=== PATIENT | female | born 1975 | race Caucasian/White ===

== ENCOUNTER → 2017-06-10 12:18 | Outpatient (CLI) | payer OTHER, SELFPAY ==
--- NOTE | 2017-06-10 12:32 | RAD_ITS ---
STUDY: X-RAY CHEST REASON FOR EXAM: Female, 41 years old. Cough. TECHNIQUE: PA and lateral views of the chest. COMPARISON: None. FINDINGS: Hyperinflation. Focal infiltrate is seen in the superior segment of the right lower lobe. There is no demonstrated pleural abnormality. Normal size heart. Normal mediastinum and allan. Normal visualized pulmonary arteries. Normal visualized aortic arch and descending thoracic aorta. Normal visualized thoracic spine. Normal visualized ribs, clavicles, and shoulders. There is no demonstrated abnormality of the visualized soft tissue structures of the upper abdomen. RAD/Chest PA and Lateral IMPRESSION: Focal infiltrate in the superior segment of the right lower lobe. Electronically Signed: Jimi Anderson MD at 12:55 EST Tel [phone], Service support ,
== END ==
PROVIDERS: Family Provider Internal Medicine; PCP Internal Medicine; Visit Provider Nurse Practitioner Family
DX: R05 Cough (principal)
CPT/HCPCS: 71046

== ENCOUNTER 2017-06-11 19:59 | Emergency (ER) | payer OTHER, SELFPAY ==
[2017-06-11 20:00] VITALS: BP 116/87; PULSE 84; RESP 15; TEMP 36.7; O2SAT 100; BMI 23.0
--- NOTE | 2017-06-11 20:16 | RAD_ITS ---
STUDY: X-RAY CHEST REASON FOR EXAM: Female, 41 years old. Cough, chest pain. TECHNIQUE: PA and lateral views of the chest. COMPARISON: June 10, 2017 FINDINGS: Within the right hilar region there is a persistent somewhat ill-defined rounded opacity. Normal size heart. Normal visualized aortic arch and descending thoracic aorta. Normal visualized thoracic spine. Normal visualized ribs, clavicles, and shoulders. There is no demonstrated abnormality of the visualized soft tissue structures of the upper abdomen. RAD/Chest PA and Lateral IMPRESSION: Rounded opacity within the right hilar region that may be secondary to some combination of atelectasis and/or pneumonia however an underlying mass cannot be entirely excluded, recommend a CT with contrast for further characterization. Electronically Signed: Christine Brown MD at 21:25 EST Tel , Service support ,
[2017-06-11 20:53] LABS: Hematocrit 42.4 % (37-47); Hemoglobin 14.4 g/dl (12.0-15.0); Mean Corpuscular Volume 89.5 fL (81-99); Red Blood Count 4.74 M/mm3 (4.2-5.4); White Blood Count 3.8 K/mm3 (4.4-11.0)
[2017-06-11 20:54] LABS: Absolute Lymphocyte Count 0.87 X10^3/ul (0.83-4.51); Absolute Neutrophil Count 2.5 X10^3/uL (2.0-7.7); Basophil% 0.3 % (0-1); Eosinophils% 1.3 % (0-5); Lymphocyte # 0.87 X10^3/ul (4.0); Lymphocyte % 22.8 % (19-41); Mean Corpuscular Hgb 30.4 pg (27.0-32.0); Mean Platelet Vol. 9.1 fl (6.2-12.0); Monocyte% 9.4 % (0-10); Neutrophil # 2.53 X10^3/uL (2.7-7.7); Neutrophil % 66.2 % (47-70); POSITIVE COUNT NO; POSITIVE DIFFERENTIAL NO; POSITIVE MORPHOLOGY NO; Platelet Count 168 K/mm3 (150-450); RBC Distribution Width CV 12.1 % (11.6-14.6); RBC Distribution Width SD 39.3 fl (35.1-43.9)
[2017-06-11 20:55] LABS: Basophil# 0.01 X10^3/uL; Eosinophil# 0.05 X10^3/uL; Monocyte# 0.36 X10^3/uL
[2017-06-11 21:03] LABS: Anion Gap 11 (5-15); BUN 9 mg/dL (7-18); Calcium,Total 9.2 mg/dL (8.5-10.1); Chloride 107 mmol/L (98-107); Creatinine, Serum 1.12 mg/dL (0.55-1.02); EST Glomerular Filtration Rate 57 mL/min (>60); Est Glom Filt Rate - Afr Amer 69 mL/min (>60); Estimated Creatinine Clearance 53.34 ml/min; Glucose 93 mg/dL (74-106); Potassium 3.4 mmol/L (3.5-5.1); Sodium Level 138 mmol/L (136-145)
[2017-06-11] MEDS: 0.9% Normal Saline 1,000 ML 1000 ML IV (21:17)
[2017-06-11 21:24] LABS: Lactic Acid 1.4 mmol/L (0.4-2.0)
--- NOTE | 2017-06-11 21:53 | ED.DCSUM_ITS ---
- ER Visit Summary Date of Service: 06/11/17 Chief Complaint: Cough, chest pain, aches and difficulty urinating History of Present Illness: The patient is a 41 F who was seen by her PCP yesterday and had a chest x-ray which revealed pneumonia. She was prescribed doxycycline. She states she took ibuprofen 3 days ago. She states she does not feel well. She complains of headache aches cough. Cough is nonproductive. She also complains of dyspnea with exertion. She denies orthopnea PND. The chest pain is on the left side. She denies history of PE or DVT. She has no risk factors for either. She is PERC negative. Physical Examination: Vital signs are unremarkable. She is afebrile and she is not hypoxic. She does appear ill. Pupils equal round reactive. Extra muscle intact. Nares patent. Posterior pharynx erythema or exudate. Mucosa slightly dry. Trach is midline. Lungs revealed abnormal breath sounds on the left with increased vocal fremitus without egophony. Heart is regular without murmur, gallop or rub. Abdomen is soft nontender without paraspinal megaly. There are no dermatologic lesions noted. Insert lower extremity DVT. Neuro exam is nonfocal. Test Results: Two-view chest x-ray reveals an infiltrate on the right either the superior segment of the right lower lobe or inferior segment of the right middle lobe. White count is 3.8 with normal differential. Electrode panel was marked for CO2 of 20 with an anion gap of 11. Creatinine is 1.12 with a GFR 58. Lactate is 1.4. Emergency Department Course and Treatment: Patient appears ill reports she feels worse chest x-ray was repeated and she had blood work obtained. Because of the elevated creatinine she did receive 1 L of normal saline. Treatment Plan: Patient and were informed of test results and informed that she is safe to go home and to continue the medication she was prescribed yesterday. She was informed that she should not take anti-inflammatory agents i.e. ibuprofen or naproxen. Disposition: Discharged to home with spouse Impression: 1. Community-acquired pneumonia, right side 2. Mild renal insufficiency 3. History of interstitial cystitis 4. History of migraine headaches This note was generated with [employer]ak[employer] software. It may contain incorrect words, spelling, and punctuation that were not noted in review of the chart prior to signing ED Disposition - Plan for ED Patient: Disposition: Home or Assisted Living Chief Complaint: General Illness Instructions: ED Pneumonia Adult Referrals: Zoey Hurd MD [Primary Care Provider] - 1 Week if not improving Additional Instructions: Take medication you were prescribed by your primary care provider until gone. Drink plenty of fluids. Do not take any ibuprofen or naproxen.
[2017-06-11 22:06] VITALS: BP 102/87; PULSE 65; RESP 22; O2SAT 100
== END 2017-06-11 22:13 | disposition home or self-care (01) ==
PROVIDERS: Emergency Provider Emergency Medicine; Family Provider Internal Medicine; PCP Internal Medicine
DX: J18.9 Pneumonia, unspecified organism (principal); N28.9 Disorder of kidney and ureter, unspecified; G43.909 Migraine, unspecified, not intractable, without status migrainosus; Z87.448 Personal history of other diseases of urinary system; Z79.51 Long term (current) use of inhaled steroids; Z79.899 Other long term (current) drug therapy
CPT/HCPCS: 71046; 80048; 83605; 85025; 99283; J7030; A4216

== ENCOUNTER → 2017-06-20 13:43 | Outpatient (CLI) | payer OTHER, SELFPAY ==
--- NOTE | 2017-06-20 13:46 | RAD_ITS ---
STUDY: X-RAY CHEST REASON FOR EXAM: Female, 42 years old. Chest pain. TECHNIQUE: PA and lateral views of the chest. COMPARISON: Comparison is made with prior study dated June 11, 2017. FINDINGS: Hyperinflation. The previously seen right upper lobe infiltrate as clear. There is no demonstrated pleural abnormality. Normal size heart. Normal mediastinum and allan. Normal visualized pulmonary arteries. Normal visualized aortic arch and descending thoracic aorta. Normal visualized thoracic spine. Normal visualized ribs, clavicles, and shoulders. There is no demonstrated abnormality of the visualized soft tissue structures of the upper abdomen. RAD/Chest PA and Lateral IMPRESSION: Normal x-ray examination of the chest. Electronically Signed: Jimi Anderson MD at 14:44 EST Tel [phone], Service support ,
== END ==
PROVIDERS: Family Provider Internal Medicine; PCP Internal Medicine; Visit Provider Internal Medicine
DX: R07.9 Chest pain, unspecified (principal); J18.9 Pneumonia, unspecified organism
CPT/HCPCS: 71046

== ENCOUNTER 2017-08-08 19:34 | Emergency (ER) | payer OTHER, SELFPAY ==
[2017-08-08 19:37] VITALS: BP 123/89; PULSE 91; RESP 24; TEMP 37.6; O2SAT 100; BMI 22.8
[2017-08-08] MEDS: 0.9% Normal Saline 1,000 ML 1000 ML IV (20:29)
[2017-08-08] MEDS: Ondansetron 4 MG/2 ML Vial IV (20:29)
[2017-08-08] MEDS: Morphine 4 MG/ML Syringe IV (20:30)
[2017-08-08 20:38] VITALS: TEMP 36.8
[2017-08-08 20:42] LABS: Absolute Lymphocyte Count 0.45 X10^3/ul (0.83-4.51); Absolute Neutrophil Count 4.9 X10^3/uL (2.0-7.7); Differential Indicated SCAN CRITERIA MET; Eosinophil# 0.02 X10^3/uL; Eosinophils% 0.4 % (0-5); Hematocrit 40.9 % (37-47); Hemoglobin 13.9 g/dl (12.0-15.0); Lymphocyte # 0.45 X10^3/ul (4.0); Lymphocyte % 8.1 % (19-41); Mean Corpuscular Hgb 30.5 pg (27.0-32.0); Mean Corpuscular Volume 89.7 fL (81-99); Mean Platelet Vol. 9.1 fl (6.2-12.0); Monocyte# 0.17 X10^3/uL; Monocyte% 3.1 % (0-10); Neutrophil # 4.89 X10^3/uL (2.7-7.7); Neutrophil % 88.4 % (47-70); POSITIVE COUNT NO; POSITIVE DIFFERENTIAL YES; POSITIVE MORPHOLOGY NO; Platelet Count 183 K/mm3 (150-450); RBC Distribution Width CV 12.8 % (11.6-14.6); RBC Distribution Width SD 41.7 fl (35.1-43.9); Red Blood Count 4.56 M/mm3 (4.2-5.4); White Blood Count 5.5 K/mm3 (4.4-11.0)
[2017-08-08 20:52] LABS: Anion Gap 9 (5-15); BUN 18 mg/dL (7-18); BUN/Creat Ratio 17.3 RATIO (10-20); Calcium,Total 8.4 mg/dL (8.5-10.1); Chloride 111 mmol/L (98-107); Creatinine, Serum 1.04 mg/dL (0.55-1.02); EST Glomerular Filtration Rate 62 mL/min (>60); Est Glom Filt Rate - Afr Amer 75 mL/min (>60); Estimated Creatinine Clearance 56.87 ml/min; Glucose 95 mg/dL (74-106); Potassium 3.6 mmol/L (3.5-5.1); Sodium Level 140 mmol/L (136-145)
[2017-08-08 21:15] LABS: Anisocytosis RARE; Platelet Estimate ADEQUATE (ADEQ)
[2017-08-08] MEDS: Dicyclomine 10 MG Capsule 20 MG PO (21:49)
--- NOTE | 2017-08-08 21:49 | ED.DCSUM_ITS ---
- ER Visit Summary Date of Service: 08/08/17 Chief Complaint: Nausea, vomiting, diarrhea History of Present Illness: The patient is a 42 F who ate [employer] yesterday morning and felt fine. She and her grilled chicken and vegetables on the ground last evening. They both woke up with nausea, vomiting, diarrhea today. She has not noted fever. She complains of generalized abdominal pain. Patient has had prior hysterectomy and appendectomy. Physical Examination: Vital signs are unremarkable. Her temperature is 99.6. Patient's lying on her right side with her knees pulled to her chest. She appears very comfortable. Head neck examination does reveal moist mucous membranes and she is making tears. Heart is regular rate and rhythm. Lung sounds are clear. Abdomen is soft with mild diffuse tenderness. There is no guarding or rebound. Hypoactive but present bowel sounds are noted throughout. Test Results: CBC was normal white count with 88% neutrophils. Chemistry studies reveal a 1.04. This is about her baseline. Her bicarb is slightly low at 20. Emergency Department Course and Treatment: Patient was given IV fluids, morphine , and Zofran. On repeat evaluation she states her pain is starting to improve. Should be given a dose of p.o. Bentyl. Nursing states that she is requesting just to go home. Should be on a prescription for Bentyl and Zofran at home. At this time she is tolerating ice chips. Treatment Plan: [] Disposition: Discharge Impression: Gastroenteritis This note was generated with [employer] dictation software. It may contain incorrect words, spelling, and punctuation that were not noted in review of the chart prior to signing ED Disposition - Plan for ED Patient: Chief Complaint: Nausea/Vomiting/Diarrhea Referrals: Zoey Hurd MD [Primary Care Provider] -
--- NOTE | 2017-08-08 21:49 | ED.DEP ---
ED Disposition - Plan for ED Patient: Disposition: Home or Assisted Living Chief Complaint: Nausea/Vomiting/Diarrhea Instructions: ED Gastroenteritis Vs Food Poison Prescriptions: Ondansetron [Zofran Odt] 4 mg PO Q8H PRN PRN #10 tablet PRN Reason: Nausea Dicyclomine HCl [Bentyl] 20 mg PO TIDAC #20 capsule Referrals: Zoey Hurd MD [Primary Care Provider] - 3-5 Days if not improving
[2017-08-08] MEDS: Ondansetron ODT 4 MG Tablet PO (21:59)
[2017-08-08 22:01] VITALS: BP 105/61; PULSE 73; RESP 16; O2SAT 100
== END 2017-08-08 22:02 | disposition home or self-care (01) ==
PROVIDERS: Emergency Provider Emergency Medicine; Family Provider Internal Medicine; PCP Internal Medicine
DX: K52.9 Noninfective gastroenteritis and colitis, unspecified (principal); G43.909 Migraine, unspecified, not intractable, without status migrainosus; M41.9 Scoliosis, unspecified; Z79.899 Other long term (current) drug therapy
CPT/HCPCS: 80048; 85025; 96361; 96374; 96375; 99284; J7030; J2405

== ENCOUNTER → 2018-07-25 | Outpatient (CLI) | payer OTHER, SELFPAY ==
[2018-07-25 13:45] VITALS: BMI 22.1
--- NOTE | 2018-07-25 15:09 | RAD_ITS ---
STUDY: X-RAY - THORACIC SPINE REASON FOR EXAM: Female, 43 years old. Back pain TECHNIQUE: 3 view(s) of the thoracic spine were obtained. COMPARISON: None. FINDINGS: Normal kyphosis of the thoracic spine. Mild dextroconvex scoliosis. Mild spondylosis. The soft tissue structures are unremarkable. RAD/Thoracic Spine 3 Views IMPRESSION: Mild spondylosis and scoliosis. Electronically Signed: Maurice Thompson MD at 10:14 EDT Tel , Service support ,
== END | disposition home or self-care (01) ==
LOC: MTRAD 15:08
PROVIDERS: Family Provider Internal Medicine; PCP Internal Medicine; Referring Provider Nurse Practitioner Family; Visit Provider Nurse Practitioner Family
DX: M54.6 Pain in thoracic spine (principal)
CPT/HCPCS: 72072

== ENCOUNTER 2018-08-18 15:00 | Outpatient (RCR) | payer OTHER, SELFPAY ==
[2018-07-25 13:45] VITALS: BMI 22.1
[2018-08-16 14:16] VITALS: BMI 22.1
--- NOTE | 2018-08-18 16:02 | HP.PTEVAL_ITS ---
Patient's Visit Information MARIYA BAKER is a 43 year old F referred to Physical Therapy by SADIA De Oliveira with a diagnosis of Thoracic pain, scoliosis. Date of Evaluation: 08/18/18 Physical Therapist: Wilbert Hinds DPT, OCS, CSCS - Visit Plan Frequency: 2x /Week Duration: 2-4 Weeks Plan: 2x/week for 3-4 weeks for. psoture correction, thoracic ext adn L rotation ROM, DLS and core/LE strength. Will f/u next week to check ext ROM, L rotation ROM, subjective adn posture adnd then schedule 2x/week for 2 weeks for strength or ROM/STM/modalities - Subjective Findings: R sided mid low back pain. present for a year with insidious onset since pneumonia a year ago. Constant pain 4/10 moderately and up to 8/10 lying down on side. No treatments exce-t tylenol. Does some stretching adn walking and running at home. stretching helps somewhat. Walking helps a ltitle bit. Started with doctor a while ago and had x rays which showed healthy lungs and scoliosis. 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 Has to get up and walk alot. Basic ADLs are OK. Hobbies include running but this makes her worse. no problem with coughing or sneezing. - Objective Good balance adn I gait , steps adn trasnfers today. Generaly tired putting face in hands and rubbing eyes during session. Posture is forward head and kyphostic thoracic spine. Sacral sits and passive sitting posture. Slight L rib hump with concavity of T/S scolisos. Palpation is tender in mid ribs in L T/S maximally and R LB distal ribs laterally minimally. PA pressure through T/S shows tighness of mevement and tenderness over spine. reflexes 2/3 patella and achilles. Sensation LE WNL to gross light touch. Strength in LE not myotomally limited but weak in hips 3+/5, knees 4-, andkles 4. Trunk flexiona dn extension very weak at 3+. Spinal multisegmental ROM: ext max limited to about 15 degree extension with L upper rib pain T/S, B SB mod limited. Flexion full.L rotation tight adn painful with OP vs R rotation. Repeated PPU show NE, L rotation with OP slightly better ROM and PDM. EIS slightly improved extension. - slump and - SLR testing. - Goals Goal 1:: Near full ext adn L rotation thoracic ROM without pain. Goal Time Frame: 4-6 Weeks Goal 2:: Patient sleep without interruption due to pain Goal Time Frame: 2-4 Weeks Goal 3:: Sit with approp posture without VC Goal Time Frame: 2-4 Weeks Goal 4:: Begin workout again without increased pain. Goal Time Frame: 4-6 Weeks - Rehabilitation Potential Physical Therapy Diagnosis: Thoracic pain and ROM limitations. Yellow flags with pain at night but plenty of physical anomalies to wrok on while awaiting US of gall bladder. Rehabilitation Potential: Questionable - Anticipated Interventions Patient/Client Instruction: Educate patient on: Condition, Plan of Care For the Purpose of:: To decrease pain, To increase tolerance to activity/condition/position, To foster healthy habits Therapeutic Exercise to Include: Strength training, Postural training, Flexibilty training, Passive ROM, Active ROM, Dynamic Lumbar Stabilization For the Purpose of:: To decrease pain, To increase ROM, To improve muscle pe rformance and motor function, To increase tolerance to activity/condition/position, To improve ability of physical actions for home/community/work/leisure Manual Therapy Techniques to Include: Mobilization, Passive ROM, Soft tissue mobilization For the Purpose of:: To increase ROM, To increase tolerance to activity/condition/position TENS: Yes Thermo therapy (hot pack): Yes For the Purpose of:: To decrease pain Thank you for the opportunity to evaluate your patient. For Medicare and Medicare HMO plans, please review the plan of care and approve it. It will need to be FAXED BACK to us at [phone] for Medicare purposes. For Medicare only, by signing this I certify the plan of care. Please let me know if there are questions or concerns regarding this plan of care. Physician Signature: Date:
--- NOTE | 2018-11-06 09:44 | HP.PTDCNRP_ITS ---
HP - Discharge Summary (1) - Patient Information MARIYA BAKER was seen in my office for initial evaluation on 08/18/18. The following Plan of Care was established for this patient: Initial Frequency: 2x /Week Initial Duration: 2-4 Weeks - Anticipated Interventions Patient/Client Instruction: Educate patient on: Condition, Plan of Care For the Purpose of:: To decrease pain, To increase tolerance to activity/conditi on/position, To foster healthy habits Therapeutic Exercise to Include: Strength training, Postural training, Flexibilty training, Passive ROM, Active ROM, Dynamic Lumbar Stabilization For the Purpose of:: To decrease pain, To increase ROM, To improve muscle performance and motor function, To increase tolerance to activity/condition/position, To improve ability of physical actions for home/community/work/leisure Manual Therapy Techniques to Include: Mobilization, Passive ROM, Soft tissue mobilization For the Purpose of:: To increase ROM, To increase tolerance to activity/condition/position TENS: Yes Thermo therapy (hot pack): Yes For the Purpose of:: To decrease pain This patient was last seen in our office 08/18/18. Pertinent comments regarding their Physical therapy will appear below: Pt seen for evaluation and plan of care established. Pt no showed for follow ups. at this point, it has been over two months and I will discontinue due to nonattendance. At this point I will be discontinuing this patient from physical therapy. I would be happy to see this patient again in the future if found appropriate by the physician. Thank you! Wilbert Hinds, DPT, OCS, CSCS
== END 2018-08-18 19:00 | disposition home or self-care (01) ==
LOC: PT 15:00
PROVIDERS: Family Provider Internal Medicine; PCP Internal Medicine; Visit Provider Nurse Practitioner Family
DX: M41.9 Scoliosis, unspecified (principal); M54.6 Pain in thoracic spine; G89.29 Other chronic pain
CPT/HCPCS: 97110; 97162

== ENCOUNTER → 2018-08-25 10:14 | Outpatient (CLI) | payer OTHER, SELFPAY ==
[2018-08-16 14:16] VITALS: BMI 22.1
--- NOTE | 2018-08-25 10:16 | US_ITS ---
STUDY: ABDOMINAL ULTRASOUND - RIGHT UPPER QUADRANT REASON FOR VISIT: Female, 43 years old. Abdominal pain, right upper quadrant and left upper quadrant TECHNIQUE: Ultrasound evaluation of the right upper quadrant was performed with real-time and static lima-scale imaging. TECHNICAL QUALITY: Adequate. COMPARISON: CT abdomen and pelvis 11/23/2014. FINDINGS: Liver: The liver measures 13.2 cm. There is normal echogenicity of the liver. The bile ducts are within normal limits. There is hepatic color flow. The direction of portal flow is hepatopetal. There is no demonstrated mass lesion. Gallbladder: Normal distended gallbladder. The gallbladder wall measures 2.1 mm. There is a negative sonographic Willams's sign. There is no pericholecystic fluid. There are no gallstones. Common Bile Duct (C.B.D.): The common bile duct measures 3.0 mm. Pancreas: Normal size of the head, body and tail of the pancreas. There is normal echogenicity of the pancreas. There is no demonstrated pancreatic mass or cyst. Right Kidney: Normal size of the right kidney. The right kidney measures 9.9 cm. Normal renal cortex. The right cortex measures 1.5 cm. There is no demonstrated renal mass or cyst. There is no right hydronephrosis. US/Abdomen Limited IMPRESSION: Normal right upper quadrant ultrasound examination. Electronically Signed: Isacc Bravo MD at 17:48 EDT Tel , Service support ,
== END ==
PROVIDERS: Family Provider Internal Medicine; PCP Internal Medicine; Referring Provider Surgery; Visit Provider Surgery
DX: R10.9 Unspecified abdominal pain (principal)
CPT/HCPCS: 76705

== ENCOUNTER → 2018-09-05 | Outpatient (CLI) | payer OTHER, SELFPAY ==
[2018-09-04 13:50] VITALS: BMI 22.1
[2018-09-05 10:20] LABS: Mucous, Urine 0 SEEN /hpf (<or=2+); White Blood Cells 0 SEEN /hpf (0-5)
[2018-09-05 12:23] LABS: Absolute Lymphocyte Count 1.45 X10^3/ul (0.83-4.51); Absolute Neutrophil Count 1.8 X10^3/uL (2.0-7.7); Basophil# 0.04 X10^3/uL; Basophil% 1.1 % (0-1); Eosinophil# 0.08 X10^3/uL; Eosinophils% 2.2 % (0-5); Hemoglobin 13.3 g/dl (12.0-15.0); Lymphocyte # 1.45 X10^3/ul (4.0); Lymphocyte % 40.4 % (19-41); Mean Corp Hgb Conc 33.3 g/gl (32-36); Mean Corpuscular Hgb 29.3 pg (27.0-32.0); Mean Corpuscular Volume 88.1 fL (81-99); Mean Platelet Vol. 9.6 fl (6.2-12.0); Monocyte# 0.18 X10^3/uL; Neutrophil # 1.84 X10^3/uL (2.7-7.7); Neutrophil % 51.3 % (47-70); Platelet Count 177 K/mm3 (150-450); RBC Distribution Width CV 12.1 % (11.6-14.6); RBC Distribution Width SD 38.4 fl (35.1-43.9); Red Blood Count 4.54 M/mm3 (4.2-5.4); White Blood Count 3.6 K/mm3 (4.4-11.0)
[2018-09-05 12:24] LABS: POSITIVE COUNT NO; POSITIVE DIFFERENTIAL NO; POSITIVE MORPHOLOGY NO
[2018-09-05 12:25] LABS: Color, Urine Yellow (Yellow); Glucose, Dipstick Normal (Normal); Ketone-Dipstick Negative (Negative); Leukocyte Esterase-Dipstick Negative /ul (Negative); Nitrite-Dipstick Negative (Negative); Occult Blood-Urine Negative /ul (Negative); Protein-Dipstick Negative (Negative); Urine Bilirubin Dipstick Negative (Negative); Urine Clarity Sl. Cloudy (Clear); Urine Urobilinogen Normal (Normal)
[2018-09-05 12:34] LABS: Red Blood Cells-Urine 0-5 SEEN /hpf (0-5)
[2018-09-05 12:35] LABS: Bacteria RARE /hpf (None Seen); Squamous Epithelial Cells - UA 0-5 SEEN /hpf (5-10)
[2018-09-05 13:01] LABS: AST(SGOT) 18 U/L (15-37); Alanine Aminotransfer ALT/SGPT 20 U/L (13-56); Albumin, Serum 3.7 g/dL (3.2-5.0); Alkaline Phosphatase 50 U/L (45-117); Anion Gap 8 (5-15); BUN 13 mg/dL (7-18); BUN/Creat Ratio 12.4 RATIO (10-20); Calcium,Total 8.5 mg/dL (8.5-10.1); Chloride 110 mmol/L (98-107); Creatinine, Serum 1.05 mg/dL (0.55-1.02); EST Glomerular Filtration Rate 61 mL/min (>60); Est Glom Filt Rate - Afr Amer 74 mL/min (>60); Globulin 3.7 g/dL (2.2-4.2); Glucose 80 mg/dL (74-106); Potassium 3.6 mmol/L (3.5-5.1); Protein, Total 7.4 g/dL (6.4-8.2); Sodium Level 142 mmol/L (136-145)
== END | disposition home or self-care (01) ==
LOC: MTLAB 10:10
PROVIDERS: Family Provider Internal Medicine; PCP Internal Medicine; Referring Provider Internal Medicine; Visit Provider Internal Medicine
DX: R10.12 Left upper quadrant pain (principal); R10.9 Unspecified abdominal pain
CPT/HCPCS: 80053; 81001; 85025

== ENCOUNTER → 2018-09-15 | Outpatient (CLI) | payer OTHER, SELFPAY ==
[2018-09-04 13:50] VITALS: BMI 22.1
--- NOTE | 2018-09-15 07:59 | CT_ITS ---
STUDY: CT ABDOMEN WITH CONTRAST REASON FOR EXAM: Female, 43 years old. 3 month history of left upper quadrant pain. RADIATION DOSAGE (If Supplied By Facility): CTDIvol = ( 9.93 ) mGy, DLP = ( 219.64 ) mGycm TECHNIQUE: Transaxial images were obtained post I.V. administration of 100 IV/Oral Isovue 300, and with oral contrast. Sagittal and coronal images were reconstructed. Individualized dose optimization techniques were used for this CT. COMPARISON: Comparison is made with prior study dated November 23, 2014. FINDINGS: The visualized lung bases are unremarkable. The visualized portions of the heart are within normal limits. Normal liver. Normal gallbladder and extrahepatic biliary system. Normal spleen. Normal pancreas. Normal bilateral adrenal glands. Normal right kidney. Normal left kidney. Normal visualized stomach. Normal small intestine. Normal colon. The patient is status post appendectomy and hysterectomy. Normal abdominal aorta. Normal inferior vena cava. Normal retroperitoneum. Normal abdominal wall. Normal osseous structures. CT/Abdomen WITH IV Contrast IMPRESSION: Normal enhanced CT of the abdomen. Electronically Signed: Jimi Anderson, at 14:39 EDT , Service support ,
== END | disposition home or self-care (01) ==
LOC: CT 07:58
PROVIDERS: Family Provider Internal Medicine; PCP Internal Medicine; Referring Provider Internal Medicine; Visit Provider Internal Medicine
DX: R10.12 Left upper quadrant pain (principal); R10.9 Unspecified abdominal pain
CPT/HCPCS: 74160; Q9967

== ENCOUNTER → 2018-11-15 | Outpatient (CLI) | payer OTHER, SELFPAY ==
[2018-10-17 14:22] VITALS: BMI 22.1
--- NOTE | 2018-11-15 17:44 | MRI_ITS ---
STUDY: MRI LUMBAR SPINE WITHOUT CONTRAST REASON FOR EXAM: Female, 43 years old. Low back pain and right hip pain TECHNIQUE: Standardized fat and water weighted pulse sequences were obtained in the sagittal and axial planes. COMPARISON: None FINDINGS: No evidence for acute fracture or subluxation. Small interosseous hemangioma within the L3 vertebral body T12-L1: Normal endplates. Normal disc height, hydration and morphology. Normal bilateral facet joints. Normal central canal and bilateral lateral recesses. Normal bilateral intervertebral neural foramina. Normal lumbar lordosis. There is no substantial scoliosis. Normal conus medullaris that terminates at L1 L1-2: Normal endplates. Normal disc height, hydration and morphology. Normal bilateral facet joints. Normal central canal and bilateral lateral recesses. Normal bilateral intervertebral neural foramina. L2-3: Normal endplates. Normal disc height, hydration and morphology. Normal bilateral facet joints. Normal central canal and bilateral lateral recesses. Normal bilateral intervertebral neural foramina. L3-4: Normal endplates. Normal disc height, hydration and morphology. Normal bilateral facet joints. Normal central canal and bilateral lateral recesses. Normal bilateral intervertebral neural foramina. L4-5: Normal endplates. Normal disc height, hydration and minimal annular bulge.. Normal bilateral facet joints. Normal central canal and bilateral lateral recesses. Normal bilateral intervertebral neural foramina. L5-S1: Normal endplates. Normal disc height, hydration and will annular bulge.. Normal bilateral facet joints. Normal central canal and bilateral lateral recesses. Normal bilateral intervertebral neural foramina. Normal visualized sacral ala. Normal visualized paraspinous soft tissue structures. MRI/Spine Lumbar (Routine) IMPRESSION: Minimal bulging of the annuli at L4-5 and L5-S1 without evidence for significant spinal stenosis. Electronically Signed: Zion Sparks MD at 18:52 EDT , Service support ,
== END | disposition home or self-care (01) ==
LOC: MRI 17:39
PROVIDERS: Family Provider Internal Medicine; PCP Internal Medicine; Referring Provider Internal Medicine; Visit Provider Internal Medicine
DX: M54.9 Dorsalgia, unspecified (principal)
CPT/HCPCS: 72148

== ENCOUNTER → 2019-01-09 | Outpatient (CLI) | payer OTHER, SELFPAY ==
[2019-01-09 14:47] VITALS: BMI 22.1
--- NOTE | 2019-01-09 14:57 | RAD_ITS ---
STUDY: X-RAY - LUMBAR SPINE REASON FOR EXAM: Female, 43 years old. Low back pain TECHNIQUE: 4 view(s) of the lumbar spine were obtained. COMPARISON: None FINDINGS: Normal lumbar lordosis. There is no substantial scoliosis. There is a normal alignment of the vertebrae. Normal vertebral bodies and endplates. Normal disc space heights. The soft tissue structures are unremarkable. RAD/L/S Spine Min 4 Views IMPRESSION: Normal x-ray examination of the lumbar spine. Electronically Signed: Donny Katz MD at 15:22 EDT , Service support ,
== END | disposition home or self-care (01) ==
LOC: HPRAD 14:55
PROVIDERS: Family Provider Internal Medicine; PCP Internal Medicine; Referring Provider Orthopaedic Surgery; Visit Provider Orthopaedic Surgery
DX: M54.5 Low back pain (principal)
CPT/HCPCS: 72110

== ENCOUNTER → 2019-03-30 07:04 | Outpatient (CLI) | payer OTHER, SELFPAY ==
[2019-03-19 10:08] VITALS: BMI 22.1
--- NOTE | 2019-03-30 07:06 | MRI_ITS ---
STUDY: MRI THORACIC SPINE WITHOUT CONTRAST REASON FOR EXAM: Female, 43 years old. Back pain TECHNIQUE: Standardized fat and water weighted pulse sequences were obtained in the sagittal and axial planes. COMPARISON: X-ray 07/25/2018 FINDINGS: Normal kyphosis of the thoracic spine. There is no substantial scoliosis. T1-2, T2-3, T3-4, T4-5, T5-6, T6-7, T7-8, T8-9, T9-10, T10-11, T11-12: Normal endplates. Normal disc hydration, heights and morphology of the corresponding intervertebral discs. Normal central canal and intervertebral neural foramina at the corresponding levels. Normal visualized thoracic cord. Normal conus medullaris that terminates at the . The soft tissue structures are unremarkable. MRI/Spine Thoracic (Routine) IMPRESSION: Normal unenhanced MRI examination of the thoracic spine. Electronically Signed: Isacc Yañez MD at 9:23 EST Tel , Service support ,
== END ==
PROVIDERS: Family Provider Internal Medicine; PCP Internal Medicine; Referring Provider Nurse Practitioner Family; Visit Provider Nurse Practitioner Family
DX: M54.6 Pain in thoracic spine (principal); G89.29 Other chronic pain
CPT/HCPCS: 72146

== ENCOUNTER → 2022-10-18 | Outpatient (CLI) | payer OTHER, SELFPAY ==
[2022-10-18 12:30] LABS: Absolute Lymphocyte Count 1.76 X10^3/uL (0.83-4.51); Absolute Neutrophil Count 1.9 X10^3/uL (2.0-7.7); Basophil# 0.07 X10^3/uL; Basophil% 1.7 % (0-1); Eosinophils% 2.4 % (0-5); Hematocrit 40.6 % (37-47); Hemoglobin 12.8 g/dL (12.0-15.0); Lymphocyte # 1.76 X10^3/ul (0.83-4.51); Lymphocyte % 42.7 % (19-41); Mean Corp Hgb Conc 31.5 g/dL (32-36); Mean Corpuscular Hgb 29.8 pg (27.0-32.0); Mean Corpuscular Volume 94.6 fL (81-99); Mean Platelet Vol. 9.8 fl (6.2-12.0); Monocyte# 0.24 X10^3/uL; Monocyte% 5.8 % (0-10); NRBC Flagged by Analyzer 0 % (0-5); Neutrophil # 1.94 X10^3/uL (2.7-7.7); Neutrophil % 47.2 % (47-70); Platelet Count 216 K/mm3 (150-450); RBC Distribution Width CV 13.2 % (11.6-14.6); RBC Distribution Width SD 45.1 fl (35.1-43.9); Red Blood Count 4.29 M/mm3 (4.2-5.4); White Blood Count 4.1 K/mm3 (4.4-11.0)
[2022-10-18 12:47] LABS: ALB/GLOB Ratio 1.2 RATIO (0.9-2.4); AST(SGOT) 30 U/L (15-37); Alanine Aminotransfer ALT/SGPT 35 U/L (13-56); Albumin, Serum 3.8 g/dL (3.2-5.0); Alkaline Phosphatase 62 U/L (45-117); Anion Gap 3 (5-15); BUN 14 mg/dL (7-18); Calcium,Total 8.9 mg/dL (8.5-10.1); Chloride 114 mmol/L (98-107); Cholesterol 185 mg/dL (200); Creatinine, Serum 0.94 mg/dL (0.55-1.02); EST Glomerular Filtration Rate 69 mL/min (>60); Est Glom Filt Rate - Afr Amer 83 mL/min (>60); Globulin 3.3 g/dL (2.2-4.2); Glucose 79 mg/dL (74-106); High Density Lipoprotein 50 mg/dL; Potassium 4.4 mmol/L (3.5-5.1); Protein, Total 7.1 g/dL (6.4-8.2); Sodium Level 141 mmol/L (136-145); Triglycerides 111 mg/dL; Very Low Density Lipoprotein 22 mg/dL (5-40)
== END | disposition home or self-care (01) ==
PROVIDERS: PCP Internal Medicine; Referring Provider Internal Medicine; Visit Provider Internal Medicine
DX: Z00.00 Encounter for general adult medical examination without abnormal findings (principal)
CPT/HCPCS: 36415; 80053; 80061; 85025

== ENCOUNTER → 2023-04-22 | Outpatient (CLI) | payer OTHER, SELFPAY ==
--- OUTSIDE RECORDS SUMMARY | 2023-04-22 13:48 | XMS RPT_ITS | CCD ---
Author Name Unknown Address [address] [place] [address] Organization [facility] Care Team Providers Care Gas Leak Inspector Name Role Phone Annika Petty Unavailable Unavailable [facility], Other Primary Car e Provider Zoey Hurd MD Primary Care Provider 1([phone]) Zoey Hurd MD Primary Care Provider 1([phone]) Zoey Hurd MD Primary Care Provider 1([phone]) Zoey Hurd MD Primary Care Provider 1([phone] 15) ZOEY HURD Primary Care Unavailable STAS NÚÑEZ Referring Unavail able ZOEY HURD Primary Care Unavailable STAS NÚÑEZ Attending Unavail able Allergies Allergy Classification Reported Allergen(s) Allergy Type Date of Onset Reaction(s) Facility (9 sources) Acetaminophen / HYDROcodone; Translations: [HYDROCODONE-ACET AMINOPHEN] Drug Allergy 6 [facility] Work Phone: (9 sources) Codeine; Translations: [CODEINE] Drug Allergy 5 GI Upset [facility] Work Phone: (9 sources) Eszopiclone; Translations: [ESZOPICLONE] Drug Allergy 3 Hives [facility] Work Phone: (9 sources) Non-steroidal anti-inflammatory agent; Translations: [NSAIDS (NON-STEROIDAL ANTI-INFLAMMATORY DRUG)] Drug Allergy 3 Unknown [facility] Work Phone: (9 sources) pregabalin; Translations: [PREGABALIN] Drug Allergy 4 Mental Status Change [facility] Work Phone: (9 sources) topiramate; Translations: [TOPIRAMATE] Drug Allergy 4 GI Upset [facility] Work Phone: (9 sources) traMADol; Translations: [TRAMADOL] Drug Allergy 2 GI Upset [facility] Work Phone: (9 sources) traZODone; Translations: [TRAZODONE] Drug Allergy 2 GI Upset [facility] Work Phone: (8 sources) e mycin [Other] Propensity to adverse reactions 5 Hives [facility] Work Phone: (1 source) OTHER; Translations: [OTHER] Propensity to adverse reactions (disorder) 5 [facility] Medications Current Medications Medication Drug Class(es) Dates Sig (Normalized) Sig (Original) fluconazole 150 mg oral tablet (1 source) Azole Antifungal Start: 10-14-2021 End: 10-14-2021 take 1 tablet by mouth once fluconazole (DIFLUCAN) 150 mg tablet Take 1 tablet by mouth one time only for 1 dose. 1 tablet 0 10/14/2021 10/14/2021 Active Completed/Discontinued Medications Medication Drug Class(es) Dates Sig (Normalized) Sig (Original) acyclovir 400 mg oral tablet (9 sources) Herpesvirus Nucleoside Analog DNA Polymerase Inhibitor, Herpes Simplex Virus Nucleoside Analog DNA Polymerase Inhibitor, Herpes Zoster Virus Nucleoside Analog DNA Polymerase Inhibitor Start: 03-16-2017 ACYCLOVIR 400 MG TABS take 1-3 daily as needed ACYCLOVIR [id number] Annika Petty Problems Active Problems Problem Classification Problem Date Documented Da te Episodic/Chronic Disorders of lipid metabolism (8 sources) Hyperlipidemia; Translations: [Hyperlipidemia, unspecified] Onset: 12-26-2012 12-26-2012 Chronic Headache; including migraine (8 sources) Migraine without aura; Translations: [Migraine without aura, not intractable, without status migrainosus] Onset: 03-29-2013 06-15-2013 Chronic Mood disorders (8 sources) Depressive disorder; Translations: [Depression] Onset: 07-21-2015 07-21-2015 Chronic Nonmalignant breast conditions (8 sources) Fibrocystic changes of bilateral breasts; Translations: [Diffuse cystic mastopathy of right breast] Onset: 03-25-2020 03-25-2020 Chronic Other bone disease and musculoskeletal deformities (8 sources) Idiopathic kyphoscoliosis; Translations: [Other idiopathic scoliosis, site unspecified] Onset: 03-17-2007 03-17-2007 Chronic Other nutritional; endocrine; and metabolic disorders (1 source) Unintentional weight gain; Translations: [Abnormal weight gain] Episodic Other screening for suspected conditions (not mental disorders or infectious disease) (13 sources) Inconclusive mammography finding; Translations: [Inconclusive mammogram] Onset: 03-25-2020 03-25-2020 Episodic Other upper respiratory disease (8 sources) Allergic rhinitis; Translations: [Allergic rhinitis, unspecified] 09-09-2006 Chronic Spondylosis; intervertebral disc disorders; other back problems (1 source) Thoracic back pain; Translations: [Dorsalgia, unspecified] Episodic Unclassified (1 source) No current problems or disability 03-16-2017 Urinary tract infections (8 sources) Chronic interstitial cystitis; Translations: [Interstitial cystitis (chronic) without hematuria] Onset: 07-21-2015 07-21-2015 Chronic Viral infection (8 sources) Herpes simplex; Translations: [Herpesviral infection, unspecified] 03-21-2008 Episodic Past or Other Problems Problem Classification Problem Date Documented Da te Episodic/Chronic Abdominal pain (8 sources) Lower abdominal pain; Translations: [Lower abdominal pain, unspecified] Onset: 06-26-2015 06-26-2015 Episodic Residual codes; unclassified (8 sources) Family history of malignant neoplasm of breast in first degree relative; Translations: [Family history of malignant neoplasm of breast] Onset: 03-25-2020 03-25-2020 Episodic Results Test Name Value Interpretation Reference Range Facil ity Vital Signs Date Time Vital Sign Value Performing Clinician Faci lity 04-23-2022 09:30-0500 Body height 160 cm Stas Abarca MD Work Phone: [facility] 04-23-2022 09:30-0500 Body weight 65.77 kg Stas Abarca MD Work Phone: [facility] 04-23-2022 09:30-0500 Diastolic blood pressure 60 mm[Hg] Stas Abarca MD Work Phone: [facility] 04-23-2022 09:30-0500 Systolic blood pressure 110 mm[Hg] Stas Abarca MD Work Phone: [facility] Encounters Encounter Date Encounter Type Care Provider Facility Start: 11-02-2022 Documentation procedure Mammog caio Coordinator [facility] Start: 11-02-2022 Letter encounter Mammography Coordinator [facility] Department Start: 11-01-2022 End: 11-01-2022 ambulatory ZOEY HURD Facility:[facility] Start: 11-01-2022 End: 11-01-2022 Subsequent hospital visit by physician Screen Mammo [facility] W[facility] Mammogram Procedures Date Procedure Procedure Detail Performing Clinician Start: 11-01-2022 End: 11-01-2022 Mammography Stas schwartz MD Work Phone: Start: 10-30-2021 CHI SCREENING W CORAL Charles MD Work Phone: Start: 10-30-2021 Mammography Screen Wst r Start: 01-07-2021 Lipid 1996 panel - S alfredo or Plasma Screen Wstr Start: 10-24-2020 Mammography Peyton orta MD Work Phone: Start: 07-24-2015 Colonoscopy Peyton orta MD Work Phone: Plan of Treatment Date Care Activity Detail Author Start: 01-07-2026 Lipid 1996 panel - Serum or Plasma Lipid Screening [facility] Start: 01-07-2026 LIPID SCREEN LIPID SCREEN [facility] Start: 07-23-2025 Colonoscopy COLONOSCOPY [facility] Start: 07-23-2025 COLORECTAL CANCER SCREENING COLORECTAL CANCER SCREENING [facility] Start: 11-02-2023 Mammography [facility] Start: 12-17-2022 Covid-19 Vaccine ( season) Covid-19 Vaccine () [facility] Start: 12-17-2022 Influenza vaccination [facility] Start: 10-30-2022 Mammography MAMMOGRAM [facility] Start: 2022 COLOGUARD (FIT-DNA) COLOGUARD (FIT-DNA) [facility] Start: [address] COLONOGRAPHY [facility] Start: 2022 DIABETES SCREEN DIABETES SCREEN [facility] Start: 2022 Diabetes Screening Diabetes Screening [facility] Start: 2022 FECAL OCCULT BLOOD FECAL OCCULT BLOOD [facility] Start: 2022 SIGMOIDOSCOPY SIGMOIDOSCOPY [facility] Start: 04-23-2022 End: 06-23-2022 Thyrotropin [Units/volume] in Serum or Plasma TSH BLD Lab Routine Screening for thyroid disorder Unintended weight gain Expected: 04/23/2022, Expires: 06/23/2022 [facility] Work Phone: Immunizations Immunization Date Immunization Notes Care Provider Fa cility 01-21-2022 influenza virus vaccine, unspecified formulation Screen Wstr [facility] 01-31-2015 influenza, injectabl e, quadrivalent, contains preservative Peyton Redding MD Work Phone: [facility] 02-14-2010 influenza virus vaccine, unspecified formulation Peyton Redding MD Work Phone: [facility] Work Phone: 01-18-2009 influenza virus vaccine, unspecified formulation Peyton Redding MD Work Phone: [facility] Work Phone: 03-21-2008 tetanus toxoid, redu trudi diphtheria toxoid, and acellular pertussis vaccine, adsorbed Peyton Redding MD Work Phone: [facility] 01-15-2008 influenza virus vaccine, live, attenuated, for intranasal use Peyton Redding MD Work Phone: [facility] Work Phone: 02-11-2005 influenza virus vaccine, unspecified formulation Peyton Redding MD Work Phone: [facility] Work Phone: 10-04-1991 diphtheria and tetan us toxoids, adsorbed for pediatric use Peyton Redding MD Work Phone: [facility] Work Phone: Payers Date Payer Category Payer Private Health Insurance [id number] [address] [facility] xxxxxxxxx 2018-Present xxxxxxxxx [id number] 2015 Private Health Insurance [facility] [employer] [id number] 2015-Present [phone] [address] [place] [address] HMO [id number] 2015 Private Health Insurance [id number] Social History Date Type Detail Facility Tobacco smoking stat us WVIS Unknown if ever smoked [facility] Start: 1975 Sex Assigned At Not on file [facility] Start: 11-13-2010 End: 04-23-2022 Tobacco smoking status NHIS Never smoked tobacco [facility] Start: 04-20-2021 End: 04-23-2022 Alcohol intake Current drinker of alcohol (finding) [facility] Start: 02-14-2013 History SDOH Alcohol Comment Seldom- Once every 3 to 4 months (wine cooler) [facility] Start: 10-03-2021 End: 10-13-2021 Exposure to SARS-CoV-2 (event) Not sure [facility] Start: 11-13-2010 End: 04-23-2022 Tobacco use and exposure Smokeless tobacco non-user [facility] Work Phone: Start: 04-23-2022 End: 11-01-2022 History of Social function [facility] Start: 04-23-2022 End: 11-01-2022 Tobacco use panel [facility] National Score (1-100), lower number is lower risk 70 [facility] Start: 01-05-2021 Gender identity Identifies as female gender (finding) [facility] Clinical Notes 07-24-2015 to 11-02-2022 Letter - Coordinator, Mammography - 11/02/2022 1:38 PM Eloise Pina RT(R) - 11/01/2022 9:50 AM EDTTelephone Encounter - Mary Brian WAFER FAB OPERATOR - 10/22/2022 7:31 AM EDT Note Date & Type Note Facility 11-02-2022 Miscellaneous Notes November 03, 2022 PID: [id number] Mariya Baker [address] [place] [address] Dear Ms. Baker, We are pleased to inform you that the results of your recent breast imaging exam on 11/01/2022 are normal. Your mammogram demonstrates that you have dense breast tissue, which could hide abnormalities. Dense breast tissue, in and of itself, is a relatively common condition. Therefore, this information is not provided to cause undue concern; rather, it is to raise your awareness and promote discussion with your health care provider regarding the presence of dense breast tissue in addition to other risk factors. Early detection of cancer is very important. We also understand recommendations regarding breast cancer screening are controversial. Please discuss with your primary care provider which strategy is best for you and whether a mammogram is right for you. Your imaging studies and report will be kept on file at [facility] as part of your permanent medical record and are available for your continuing care. Thank you for allowing us to help in meeting your health care needs. Sincerely, Dr. Bauman Interpreting Radiologist (Normal over 40) documented in this encounter [facility] 11-01-2022 Note HNO ID: [id number] Author: RT Brook(Cait) Service: ? Author Type: Technologist Type: Progress Notes Filed: 11/01/2022 9:38 AM Note Text: Radiology Service Progress Note PATIENT NAME: Mariya Baker DATE OF SERVICE: November 01, 2022 TIME: 9:38 AM PATIENT IDENTITY VERIFICATION COMPLETED USING TWO (2) IDENTIFIERS: Name and Date of confirmed by patient verbally. FALL SCREENING: Has the patient had 2 falls in the last year or 1 fall with injury or currently using an Ambulatory Assistive Device (Walker, Cane, Wheelchair, Crutches, etc.)? No PATIENT GENDER DATA: Female. status: : No status: NO. PATIENT RELEVANT IMPLANT DATA REVIEWED: Not Applicable RADIOLOGY DEPARTMENT: Mammography PERIPHERAL IV DATA: Not applicable SIGNED BY: RT Brook(R) November 01, 2022 9:38 AM [facility] 11-01-2022 History of Presen t illness Narrative Radiology Service Progress Note PATIENT NAME: Mariya Baker DATE OF SERVICE: November 01, 2022 TIME: 9:38 AM PATIENT IDENTITY VERIFICATION COMPLETED USING TWO (2) IDENTIFIERS: Name and Date of confirmed by patient verbally. FALL SCREENING: Has the patient had 2 falls in the last year or 1 fall with injury or currently using an Ambulatory Assistive Device (Walker, Cane, Wheelchair, Crutches, etc.)? No PATIENT GENDER DATA: Female. status: : No status: NO. PATIENT RELEVANT IMPLANT DATA REVIEWED: Not Applicable RADIOLOGY DEPARTMENT: Mammography PERIPHERAL IV DATA: Not applicable SIGNED BY: RT Brook(R) November 01, 2022 9:38 AM documented in this encounter [facility] 10-22-2022 Miscellaneous Notes Please see pharmacy generated refill request below. Pt was seen in the office 04/23/22. Mary Brian LPN' documented in this encounter [facility] 04-23-2022 Note HNO ID: [id number] Author: Stas Abarca MD Service: ? Author Type: Physician Type: Progress Notes Filed: 04/23/2022 10:12 AM Note Text: Mariya is a 46 year old who presents for an annual gynecologic exam without complaints. Still has intermittent breast pain but nothing getting worse. 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 Contraception: hysterectomy HPV vaccine: Last Pap: 11/23/2011 normal HPV: 11/12/2011 negative History of abnormal pap: No Last mammogram: 2021 normal Sexually active: Yes History of STDS: None Patient concerns for STD exposure: No. 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 Seat Fitter Machine History Comments: Sexual Activity: Yes; Male; has had vasectomy Contraception: Vasectomy PAST MEDICAL HISTORY Diagnosis Date Allergic rhinitis, cause unspecified Allergic rhinitis PABLO positive 10/26/2013 Anemia Chronic interstitial cystitis 02/16/2011 Depression 07/21/2015 Herpes simplex without mention of complication cold sores Hypercholesteremia Right sided abdominal pain 02/28/14 Scoliosis (and kyphoscoliosis), idiopathic 03/17/2007 does have some pain Tension headache PAST SURGICAL HISTORY Procedure Laterality Date DELIVERY ONLY 1998 , low cervical / TWINS - one was breech COLONOSCOPY FLX DX W/COLLJ SPEC WHEN PFRMD 07/24/15 Colonoscopy CYSTOSCOPY IC HYSTERECTOMY HX 12/19/14 LAPAROSCOPIC APPENDECTOMY 02/28/14 SALPINGECTOMY OR OOPHERECTOMY-ECTOPIC 02/28/2014 right TONSILLECTOMY AND ADENOIDECTOMY FAMILY HISTORY Problem Relation Age of Onset Breast Cancer Mother Diagnosed in her 40's - in remission now Stroke Mother mother is maira jones Hypertension Father Arthritis Father Gout Diabetes Maternal Grandmother of DM complications Headache Son SOCIAL HISTORY Social History Tobacco Use Smoking status: Never Smokeless tobacco: Never Vaping Use Vaping Use: Never used Substance Use Topics Alcohol use: Yes Comment: Seldom- Once every 3 to 4 months (wine cooler) Drug use: No REVIEW OF SYSTEMS Abdomen: No abdominal pain, nausea, vomiting, diarrhea, or constipation. No bloating, early satiety, indigestion, or increased flatulence. Bladder: No dysuria, gross hematuria, urinary frequency, urinary urgency, or incontinence. Breast: No breast lumps, nipple d/c, overlying skin changes, redness or skin retraction. Allergies and current medication updated:Yes EXAM: BP 110/60 Ht 5' 3 (1.60m) Wt 145 lb (65.8kg) LMP 10/26/2014 BMI 25.69 kg/(m2). GENERAL: pleasant, female in no apparent distress HEENT: Normocephalic, atraumatic, mucus membranes moist, and no lesions NECK: Supple, full range of motion, no adenopathy, and thyroid normal DERMATOLOGY: Normal, without lesions, non-icteric, and non-hirsute BREAST: soft, non-tender, symmetric, no dominant mass, normal nipple-areolar complex, no lymphadenopathy, and no nipple discharge ABDOMEN: soft, non-tender, and no masses PELVIC: external genitalia normal, normal Bartholin's glands, urethra, Redfield's glands, no vulvar lesions, good vaginal support, physiologic discharge present, normal appearing perineal body and perianal region, cervix surgically absent BIMANUAL: no adnexal masses, non-tender, and uterus surgically absent RECTOVAGINAL: deferred NEURO: alert and oriented x3,exam grossly non-focal EXTREMITIES: normal ASSESSMENT/PLAN: 1) Health maintenance: Mammogram up to date . Nutrition, exercise and routine health maintenance exams reviewed. Calcium/Vitamin D supplementation information provided. TSH ordered 2) Contraception: hysterectomy. Contraceptive options reviewed and information provided. 3) STD screening: Declined STD check. 4) Follow up one year or sooner as needed Stas Thompson MD [facility] 04-23-2022 Note HNO ID: [id number] Author: Vandana Miller Ma Service: ? Author Type: ? Type: Progress Notes Filed: 04/23/2022 10:12 AM Note Text: Manager Alliance offered: Patient declines. [facility] 04-23-2022 History of Presen t illness Narrative Mariya is a 46 year old who presents for an annual gynecologic exam without complaints. Still has intermittent breast pain but nothing getting worse. 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 Contraception: hysterectomy HPV vaccine: Last Pap: 11/23/2011 normal HPV: 11/12/2011 negative History of abnormal pap: No Last mammogram: 2021 normal Sexually active: Yes History of STDS: None Patient concerns for STD exposure: No. 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 Seat Fitter Machine History Comments: Sexual Activity: Yes; Male; has had vasectomy Contraception: Vasectomy PAST MEDICAL HISTORY Diagnosis Date Allergic rhinitis, cause unspecified Allergic rhinitis PABLO positive 10/26/2013 Anemia Chronic interstitial cystitis 02/16/2011 Depression 07/21/2015 Herpes simplex without mention of complication cold sores Hypercholesteremia Right sided abdominal pain 02/28/14 Scoliosis (and kyphoscoliosis), idiopathic 03/17/2007 does have some pain Tension headache PAST SURGICAL HISTORY Procedure Laterality Date DELIVERY ONLY 1998 , low cervical / TWINS - one was breech COLONOSCOPY FLX DX W/COLLJ SPEC WHEN PFRMD 07/24/15 Colonoscopy CYSTOSCOPY IC HYSTERECTOMY HX 12/19/14 LAPAROSCOPIC APPENDECTOMY 02/28/14 SALPINGECTOMY OR OOPHERECTOMY-ECTOPIC 02/28/2014 right TONSILLECTOMY & ADENOIDECTOMY <AGE 14 1987 FAMILY HISTORY Problem Relation Age of Onset Breast Cancer Mother Diagnosed in her 40's - in remission now Stroke Mother mother is maira jones Hypertension Father Arthritis Father Gout Diabetes Maternal Grandmother of DM complications Headache Son SOCIAL HISTORY Social History Tobacco Use Smoking status: Never Smokeless tobacco: Never Vaping Use Vaping Use: Never used Substance Use Topics Alcohol use: Yes Comment: Seldom- Once every 3 to 4 months (wine cooler) Drug use: No REVIEW OF SYSTEMS Abdomen: No abdominal pain, nausea, vomiting, diarrhea, or constipation. No bloating, early satiety, indigestion, or increased flatulence. Bladder: No dysuria, gross hematuria, urinary frequency, urinary urgency, or incontinence. Breast: No breast lumps, nipple d/c, overlying skin changes, redness or skin retraction. Allergies and current medication updated:Yes EXAM: BP 110/60 Ht 5' 3 (1.60m) Wt 145 lb (65.8kg) LMP 10/26/2014 BMI 25.69 kg/(m^2). GENERAL: pleasant, female in no apparent distress HEENT: Normocephalic, atraumatic, mucus membranes moist, and no lesions NECK: Supple, full range of motion, no adenopathy, and thyroid normal DERMATOLOGY: Normal, without lesions, non-icteric, and non-hirsute BREAST: soft, non-tender, symmetric, no dominant mass, normal nipple-areolar complex, no lymphadenopathy, and no nipple discharge ABDOMEN: soft, non-tender, and no masses PELVIC: external genitalia normal, normal Bartholin's glands, urethra, Redfield's glands, no vulvar lesions, good vaginal support, physiologic discharge present, normal appearing perineal body and perianal region, cervix surgically absent BIMANUAL: no adnexal masses, non-tender, and uterus surgically absent RECTOVAGINAL: deferred NEURO: alert and oriented x3,exam grossly non-focal EXTREMITIES: normal ASSESSMENT/PLAN: 1) Health maintenance: Mammogram up to date . Nutrition, exercise and routine health maintenance exams reviewed. Calcium/Vitamin D supplementation information provided. TSH ordered 2) Contraception: hysterectomy. Contraceptive options reviewed and information provided. 3) STD screening: Declined STD check. 4) Follow up one year or sooner as needed Stas Thompson MD Manager Alliance offered: Patient declines. documented in this encounter [facility] 12-30-2021 Miscellaneous Notes Reviewed all information below with patient. She will try the patch. Selina Frost RN She may have return of menopausal symptoms including hot flashes and night sweats. She can increase her risk for osteoporosis without the estrogen supplementation. If she chooses to stop the estrogen that is her choice. I would recommend calcium and vitamin D supplementation as well as weightbearing exercises. Noted. Vivelle dot is safe- trying a different route of administration may decrease headaches. I am not sure what else to order at this time as I can't control what the environmental permitting specialist the pharmacy has. Premarin is not on formulary for her. She can ask pharmacy what other oral estrogen pills they have that are covered with her insurance. But I would try patch first. Patient notified. States she's not sure she feels comfortable using a patch. Asking if there is another tablet option. She's been suffering from headaches and she didn't take the Estradiol yesterday. Today she woke up and felt much better. Asking if there are repercussions for not taking the hormone. Is she too young to go in to menopause? Offered patient a virtual visit to discuss her concerns. States she wants an in office visit since she is due for annual. Annual exam scheduled in January. Selina Frost RN Estradiol (vivelle dot) as a patch was ordered- apply twice weekly- not near breast. Patient called back and states she called to multiple pharmacy's and no one has the generic estradiol by that specific environmental permitting specialist. Patient no longer wants to continue on the medication that she is on as she states the headaches can be debilitating for her. Patient wanting to know if she can be started on something new. Pharmacy is up to date. Please address. Jutsa Chavez RN Patient called back she is going to call around to local pharmacy's to see if they have the Estradiol by previous environmental permitting specialist in stock. Patient will call office to have Rx transferred once she finds a pharmacy. Patient also has not had eye exam in awhile. Patient encouraged to schedule eye exam to rule out other causes of headache. Justa Chavez RN Left message to call office. Justa Chavez RN It could be a filler shredding machine loader the medication. She can continue if she wants to. We could try to change to a different form but if she was doing well on it hopefully she will do better here in the next few days. Has she had eye exam recently? Just to r/o other causes of headaches. Also- she can call other pharmacies and see if they have the Estrogen by the first environmental permitting specialist then we can transfer rx. Patient calling back after speaking to the pharmacy. Patient states both of the pills she received were generic brands. The only difference in the pills is the environmental permitting specialist. The Estradiol she had no problems with was manufactured by [employer] and the current is Steva. 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 Patient would like to know if she should continue with medication or change to something else. Justa Chavez RN Patient notified and voiced understanding. Patient will call pharmacy and then notify office. Justa Chavez RN Did the pharmacy change it to generic for her? She should speak to them- if that is the case we can reorder for ENA Patient calling with concerns of unwanted side effects with Estradiol Rx. Patient states her prescription used to always come as a little round white pill, but her most recent was a white oval shaped pill. Per patient since started the oval shaped Estradiol she has had daily headaches. Medication was started a week ago. Taking Tylenol daily for the pain and it helps with the headache, but headache returns when she takes her next dose of estradiol. Patient tried to cut her dose in half for the last 3-4 days due to the headaches, but then started with hot flashes at night. Please advise. documented in this encounter [facility] 10-30-2021 Miscellaneous Notes October 30, 2021 PID: [id number] Mariya Baker [address] [place] [address] Dear Ms. Baker, We are pleased to inform you that the results of your recent breast imaging exam on 10/30/2021 are normal. Your mammogram demonstrates that you have dense breast tissue, which could hide abnormalities. Dense breast tissue, in and of itself, is a relatively common condition. Therefore, this information is not provided to cause undue concern; rather, it is to raise your awareness and promote discussion with your health care provider regarding the presence of dense breast tissue in addition to other risk factors. Early detection of cancer is very important. We also understand recommendations regarding breast cancer screening are controversial. Please discuss with your primary care provider which strategy is best for you and whether a mammogram is right for you. Your imaging studies and report will be kept on file at [facility] as part of your permanent medical record and are available for your continuing care. Thank you for allowing us to help in meeting your health care needs. Sincerely, Dr. Small Interpreting Radiologist (Normal over 40) documented in this encounter [facility] 10-30-2021 History of Presen t illness Narrative Radiology Service Progress Note PATIENT NAME: Mariya Baker DATE OF SERVICE: October 30, 2021 TIME: 10:09 AM PATIENT IDENTITY VERIFICATION COMPLETED USING TWO (2) IDENTIFIERS: Name and Date of confirmed by patient verbally. FALL SCREENING: Has the patient had 2 falls in the last year or 1 fall with injury or currently using an Ambulatory Assistive Device (Walker, Cane, Wheelchair, Crutches, etc.)? No PATIENT GENDER DATA: Female. status: : No status: NO. PATIENT RELEVANT IMPLANT DATA REVIEWED: Not Applicable RADIOLOGY DEPARTMENT: Mammography PERIPHERAL IV DATA: Not applicable SIGNED BY: RT Brook(R) October 30, 2021 10:09 AM documented in this encounter [facility] 10-14-2021 Miscellaneous Notes Patient's request for medication is as follows Signed Prescriptions Disp Refills fluconazole (DIFLUCAN) 150 mg tablet 1 tablet 0 Sig: Take 1 tablet by mouth one time only for 1 dose. Authorizing Provider: PEYTON REDDING Order entered - please phone pharmacy and notify patient. Peyton Redding MD Patient calling with complaints of vaginal burning and itching x 1 week. Patient denies any odor. Patient states she has used Azo over the counter, but it is not helping. Per patient she does not want to use Monistat. Patient is asking for Diflucan to be sent to her pharmacy. Patient aware if Diflucan does not help she will need to follow up in the office. Please order in DM's absence. Will only call patient back if there is a problem. Justa Chavez RN documented in this encounter [facility] documented as of this encounter (statuses as of 10/14/2021) [facility]04-07-2016 History of Past illness Narrative* Problem Noted Date Resolved Date Abdominal cramping in left lower quadrant 201507/24/2015 Complex ovarian cyst 11/16/2013 01/31/2015 RLQ abdominal pain 11/16/2013 01/31/2015 Iron deficiency anemia 01/09/2013 5 Last Assessment & Plan: Stopped taking supplements. Anemia stable. Last levels of iron, ferritin low in December 2012. Notes fatigue, chronic. Microcytic anemia 12/26/2012 01/09/2013 Enlarged lymph node 12/15/2012 01/31/2015 Breast pain, right 01/14/2012 10/26/2013 Tension headache 06/15/2013 documented as of this encounter (statuses as of 10/31/2021) [facility] History of Past illness Narrative* Problem Noted Date Resolved Date Abdominal cramping in left lower quadrant 201507/24/2015 Complex ovarian cyst 11/16/2013 01/31/2015 RLQ abdominal pain 11/16/2013 01/31/2015 Iron deficiency anemia 01/09/2013 5 Last Assessment & Plan: Stopped taking supplements. Anemia stable. Last levels of iron, ferritin low in December 2012. Notes fatigue, chronic. Microcytic anemia 12/26/2012 01/09/2013 Enlarged lymph node 12/15/2012 01/31/2015 Breast pain, right 01/14/2012 10/26/2013 Tension headache 06/15/2013 documented as of this encounter (statuses as of 11/03/2021) [facility] History of Past illness Narrative* Problem Noted Date Resolved Date Abdominal cramping in left lower quadrant 201507/24/2015 Complex ovarian cyst 11/16/2013 01/31/2015 RLQ abdominal pain 11/16/2013 01/31/2015 Iron deficiency anemia 01/09/2013 5 Last Assessment & Plan: Stopped taking supplements. Anemia stable. Last levels of iron, ferritin low in December 2012. Notes fatigue, chronic. Microcytic anemia 12/26/2012 01/09/2013 Enlarged lymph node 12/15/2012 01/31/2015 Breast pain, right 01/14/2012 10/26/2013 Tension headache 06/15/2013 documented as of this encounter (statuses as of 12/30/2021) [facility] History of Past illness Narrative* Problem Noted Date Resolved Date Abdominal cramping in left lower quadrant 201507/24/2015 Complex ovarian cyst 11/16/2013 01/31/2015 RLQ abdominal pain 11/16/2013 01/31/2015 Iron deficiency anemia 01/09/2013 5 Last Assessment & Plan: Stopped taking supplements. Anemia stable. Last levels of iron, ferritin low in December 2012. Notes fatigue, chronic. Microcytic anemia 12/26/2012 01/09/2013 Enlarged lymph node 12/15/2012 01/31/2015 Breast pain, right 01/14/2012 10/26/2013 Tension headache 06/15/2013 documented as of this encounter (statuses as of 04/24/2022) [facility] History of Past illness Narrative* Problem Noted Date Resolved Date Abdominal cramping in left lower quadrant 201507/24/2015 Complex ovarian cyst 11/16/2013 01/31/2015 RLQ abdominal pain 11/16/2013 01/31/2015 Iron deficiency anemia 01/09/2013 5 Last Assessment & Plan: Stopped taking supplements. Anemia stable. Last levels of iron, ferritin low in December 2012. Notes fatigue, chronic. Microcytic anemia 12/26/2012 01/09/2013 Enlarged lymph node 12/15/2012 01/31/2015 Breast pain, right 01/14/2012 10/26/2013 Tension headache 06/15/2013 documented as of this encounter (statuses as of 10/22/2022) [facility] History of Past illness Narrative* Problem Noted Date Diagnosed Date Resolved Date Abdominal cramping in left lower quadrant 07/24/2015 07/24/2015 Complex ovarian cyst 11/16/2013 015 RLQ abdominal pain 11/16/2013 5 Iron deficiency anemia 01/09/201301/31 Last Assessment & Plan: Stopped taking supplements. Anemia stable. Last levels of iron, ferritin low in December 2012. Notes fatigue, chronic. Microcytic anemia 12/26/2012 01/09/2013 Enlarged lymph node 12/15/2012 02/01/20 15 Breast pain, right 01/14/2012 4 Tension headache 06/15/2013 documented as of this encounter (statuses as of 11/04/2022) [facility] History of Past illness Narrative* Problem Noted Date Diagnosed Date Resolved Date Abdominal cramping in left lower quadrant 07/24/2015 07/24/2015 Complex ovarian cyst 11/16/2013 015 RLQ abdominal pain 11/16/2013 5 Iron deficiency anemia 01/09/201301/31 Last Assessment & Plan: Stopped taking supplements. Anemia stable. Last levels of iron, ferritin low in December 2012. Notes fatigue, chronic. Microcytic anemia 12/26/2012 01/09/2013 Enlarged lymph node 12/15/2012 02/01/20 15 Breast pain, right 01/14/2012 4 Tension headache 06/15/2013 documented as of this encounter (statuses as of 02/20/2023) [facility] Diagnosis Encounter for screening mammogram for malignant neoplasm of breast Other screening mammogram [facility] Diagnosis Encounter for gynecological examination (general) (routine) without abnormal findings- Primary Encounter for screening mammogram for malignant neoplasm of breast Other screening mammogram Screening for thyroid disorder Unintended weight gain Abnormal weight gain [facility] Diagnosis Encounter for screening mammogram for malignant neoplasm of breast Other screening mammogram documented in this encounter [facility] for referral (narrative)* Diagnostic Procedure Only (Routine) - Closed Specialty Diagnoses / Procedures Referred By Contniraj t Referred To Contact [facility] Diagnoses Encounter for screening mammogram for malignant neoplasm of breast Procedures CHI SCREENING W CORAL SCREENING BREAST DGTL CORAL UNI/BILAT ADD ON SCREENING MAMMOGRAPHY BI 2-VIEW BREAST INC CAD Stas Núñez MD [address] [place] [address] [facility] [address] [place] [address] Referral ID Status Reason Start Date Expiration Date V isits Requested Visits Authorized Closed Auto-Generate d Referral 01/07/2021 02/06/2022 1 1 [facility] for referral (narrative)* Diagnostic Procedure Only (Routine) - Pending Review Specialty Diagnoses / Procedures Referred By Carlos chino Referred To Contact [facility] Diagnoses Encounter for screening mammogram for malignant neoplasm of breast Procedures CHI SCREENING W CORAL SCREENING DIGITAL BREAST TOMOSYNTHESIS BI SCREENING MAMMOGRAPHY BI 2-VIEW BREAST INC CAD Stas Núñez MD [address] [place] [address] [facility] [address] [place] [address] Referral ID Status Reason Start Date Expiration Date Visits Requested Visits Authorized [id number] Pending Review Auto-Generat ed Referral 04/23/2022 05/23/2023 1 1 [facility] for referral (narrative)* Diagnostic Procedure Only (Routine) - Closed Specialty Diagnoses / Procedures Referred By Carlos chino Referred To Contact [facility] Diagnoses Encounter for screening mammogram for malignant neoplasm of breast Procedures CHI SCREENING W CORAL SCREENING DIGITAL BREAST TOMOSYNTHESIS BI SCREENING MAMMOGRAPHY BI 2-VIEW BREAST INC CAD Stas Núñez MD [address] [place] [address] [facility] [address] [place] [address] Referral ID Status Reason Start Date Expiration Date V isits Requested Visits Authorized [id number] Closed Auto-Generate d Referral 04/23/2022 05/23/2023 1 1 [facility] for visit Narrative* Diagnostic Procedure Only (Routine) - Closed Specialty Diagnoses / Procedures Referred By Carlos chino Referred To Contact [facility] Diagnoses Encounter for screening mammogram for malignant neoplasm of breast Procedures CHI SCREENING W CORAL SCREENING BREAST DGTL CORAL UNI/BILAT ADD ON SCREENING MAMMOGRAPHY BI 2-VIEW BREAST INC CAD Stas Núñez MD [address] [place] [address] [facility] [address] [place] [address] Referral ID Status Reason Start Date Expiration Date V isits Requested Visits Authorized [id number] Closed Auto-Generate d Referral 01/07/2021 02/06/2022 1 1 [facility]* Diagnostic Procedure Only (Routine) - Closed Specialty Diagnoses / Procedures Referred By Carlos chino Referred To Contact [facility] Diagnoses Encounter for screening mammogram for malignant neoplasm of breast Procedures CHI SCREENING W CORAL SCREENING DIGITAL BREAST TOMOSYNTHESIS BI SCREENING MAMMOGRAPHY BI 2-VIEW BREAST INC CAD Stas Núñez MD [address] [place] [address] [facility] [address] [place] [address] Referral ID Status Reason Start Date Expiration Date V isits Requested Visits Authorized [id number] Closed Auto-Generate d Referral 04/23/2022 05/23/2023 1 1 [facility] Reason for Referral Status Reason Specialty Diagnoses / Procedures Referred By Contact Referred To Contact New Request Orthopaedics Diagnoses Dorsalgia, unspecified Zoey Hurd MD [address] [address] Assessments Diagnosis Dorsalgia, unspecified- Primary Advance Directives Documents on File Type Date Recorded 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 Advance Directive(s) 07/24/2015 11:24 AM Advance Directive(s) 06/27/2015 6:56 PM Documents on File Type Date Recorded 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 Advance Directive(s) 07/24/2015 11:24 AM Advance Directive(s) 06/27/2015 6:56 PM Summary Purpose Family History No Family History Records Found Additional Source Comments Source Comments (unrecognize d section and content) In the event this informatio n is protected by the Federal Confidentiality of Alcohol and Drug Abuse Patient Records regulations: The Federal rules restrict any use of the information to criminally investigate or prosecute any alcohol or drug abuse patient.[facility] the event this information is protected by the Federal Confidentiality of Alcohol and Drug Abuse Patient Records regulations: The Federal rules restrict any use of the information to criminally investigate or prosecute any alcohol or drug abuse patient.[facility] the event this information is protected by the Federal Confidentiality of Alcohol and Drug Abuse Patient Records regulations: The Federal rules restrict any use of the information to criminally investigate or prosecute any alcohol or drug abuse patient.[facility] the event this information is protected by the Federal Confidentiality of Alcohol and Drug Abuse Patient Records regulations: The Federal rules restrict any use of the information to criminally investigate or prosecute any alcohol or drug abuse patient.[facility] the event this information is protected by the Federal Confidentiality of Alcohol and Drug Abuse Patient Records regulations: The Federal rules restrict any use of the information to criminally investigate or prosecute any alcohol or drug abuse patient.[facility] the event this information is protected by the Federal Confidentiality of Alcohol and Drug Abuse Patient Records regulations: The Federal rules restrict any use of the information to criminally investigate or prosecute any alcohol or drug abuse patient.[facility] the event this information is protected by the Federal Confidentiality of Alcohol and Drug Abuse Patient Records regulations: The Federal rules restrict any use of the information to criminally investigate or prosecute any alcohol or drug abuse patient.[facility] the event this information is protected by the Federal Confidentiality of Alcohol and Drug Abuse Patient Records regulations: The Federal rules restrict any use of the information to criminally investigate or prosecute any alcohol or drug abuse patient.[facility] Center[facility] the event this information is protected by the Federal Confidentiality of Alcohol and Drug Abuse Patient Records regulations: The Federal rules restrict any use of the information to criminally investigate or prosecute any alcohol or drug abuse patient.[facility] Reason for Visit (unrecogniz ed section and content) Reason Comments Medication Problem Reason Comments Yearly Exam Reason Comments Refill Request Care Teams (unrecognized sec tion and content) 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 Relationship Specialty Start Date End Date Zoey Hurd MD [address] [address] PCP - General Internal Medicine 02/02/21 Gas Leak Inspector Relationship Specialty Start Date End Date Zoey Hurd MD [address] [phone] PCP - General Internal Medicine 02/02/21 Gas Leak Inspector Relationship Specialty Start Date End Date Zoey Hurd MD [address] [address] PCP - General Internal Medicine 02/02/21 Gas Leak Inspector Relationship Specialty Start Date End Date Zoey Hurd MD [address] [address] PCP - General Internal Medicine 02/02/21 Gas Leak Inspector Relationship Specialty Start Date End Date Zoey Hurd MD [address] [facility] [address] [place] [phone] PCP - General Internal Medicine 02/02/21 Gas Leak Inspector Relationship Specialty Start Date End Date Zoey Hurd MD [address] [facility] [address] [place] [phone] PCP - General Internal Medicine 02/02/21 INFORMATION SOURCE (unrecogn ized section and content) FOR RECORDS PERTAINING TO PATIENTS WHO ARE OR HAVE BEEN ENROLLED IN A CHEMICAL DEPENDENCY/SUBSTANCEABUSE PROGRAM, SOME INFORMATION MAY BE OMITTED. This clinical summary was aggregated from multiple sources. Caution should be exercised in using it in the provision of clinical care. This summary normalizes information from multiple sources, and as a consequence, information in this document may materially change the coding, format and clinical context of patient data. In addition, data may be omitted in some cases. CLINICAL DECISIONS SHOULD BE BASED ON THE PRIMARY CLINICAL RECORDS. [facility] [employer] [facility]. provides no warranty or guarantee of the accuracy or completeness of information in this document.
== END | disposition home or self-care (01) ==
LOC: LABSPEC 13:17
PROVIDERS: PCP Internal Medicine; Referring Provider Internal Medicine; Visit Provider Internal Medicine
DX: R05.9 Cough, unspecified (principal)
CPT/HCPCS: 87634; 87635

== ENCOUNTER 2023-09-26 16:13 | Emergency (ER) | payer OTHER, SELFPAY ==
[2023-09-26 16:13] VITALS: BP 183/74; PULSE 57; RESP 16; TEMP 36.7; O2SAT 99; BMI 19.0
--- NOTE | 2023-09-26 16:42 | EKG12_ITS ---
Test Reason : Blood Pressure : / mmHG Vent. Rate : 058 BPM Atrial Rate : 058 BPM P-R Int : 122 ms QRS Dur : 080 ms QT Int : 466 ms P-R-T Axes : 063 092 064 degrees QTc Int : 457 ms Sinus bradycardia Rightward axis Borderline ECG Confirmed by SHANTHI VERONICA, KATARINA ([id number]), supervising editor trailer ANA CRORALES ([id number]) on 09/27/2023 8:20:45 AM Referred By: BERKLEY Confirmed By:KATARINA MAKI MD
--- NOTE | 2023-09-26 16:47 | EDS_ITS ---
HPI History of Present Illness Chief Complaint: Shortness of Breath Informant: patient Narrative Narrative: Sent from [facility] dyspnea over the past month. States she cannot get a deep breath in. Denies cough or wheeze. No recent travel or surge kuldeep. No history of PE or DVT. She is on estrogen therapy however she does not smoke. States mild chest tightness. No fevers. Denies any leg swelling or cramping. Prior similar symptoms: No PFSH PFSH Medical History Viral syndrome Anxiety with flying Colon cancer screening Preventative health care Back pain Cystitis Scoliosis Herpes simplex Migraines Seasonal allergies Home Medications ?Medication ?Instructions ?Recorded ?Last Taken ?Type conjugated estrogens 0.625 mg 1.25 mg PO DAILY 30 days #60 tabs 07/25/18 Unknown History tablet acetaminophen 325 mg capsule 325 mg PO Q6H PRN 10/18/22 Unknown History (Tylenol) acyclovir 400 mg tablet 400 mg PO TID PRN Herpes Simplex 12/21/22 Unknown Rx #90 tabs benzonatate 200 mg capsule 200 mg PO TID #30 caps 04/22/23 Unknown Rx zonisamide 100 mg capsule 100 mg PO TID 3 months #270 caps 08/11/23 Unknown Rx Allergy/AdvReac Type Severity Reaction Status Date / Time NSAIDS (Non-Steroidal AdvReac Severe Due to her Verified 09/26/23 16:15 Anti-Inflamma Interstitial Cystitis amitriptyline AdvReac Vomiting Verified 09/26/23 16:15 codeine AdvReac Nausea Verified 09/26/23 16:15 erythromycin base AdvReac Vomiting Verified 09/26/23 16:15 (Erythromycin Base) hydrocodone bitartrate (From AdvReac Nausea Verified 09/26/23 16:15 Vicodin) pregabalin (From Lyrica) AdvReac Other Verified 09/26/23 16:15 tramadol AdvReac Nausea/Vom/ Verified 09/26/23 16:15 Diarrhea Family History Mother Breast cancer CVA (cerebral vascular accident) Grandmother Diabetes Father Hypertension Arthritis Surgical History History of laparoscopic appendectomy History of colonoscopy History of delivery History of tonsillectomy History of salpingo-oophorectomy History of hysterectomy Social History Smoking Status: Never smoker alcohol intake: current alcohol intake frequency: holidays/special occasions only substance use type: does not use what type of physical activity do you participate in: aerobics frequency: 1-2 times per week ROS ROS ED Constitutional Constitutional ED: Denies chills, fever(s) or sweats Eyes Eyes: Denies change in vision ENT ENT ED: Denies dysphagia or sore throat Cardiovascular Cardiovascular: Denies chest pain, leg edema, palpitations or racing heartbeat Respiratory/Chest Respiratory/Chest: Reports dyspnea; Denies cough or dyspnea on exertion Gastrointestinal Gastrointestinal: Denies abdominal pain, diarrhea, nausea or vomiting Genitourinary Genitourinary ED: Denies dysuria, hematuria or urinary frequency Musculoskeletal Musculoskeletal: Denies back pain, extremity pain or neck pain Integumentary Denies rash or wounds Neurologic Neurologic: Denies headache(s), paresthesias or weakness EXAM Physical Exam Const Vital Signs: 09/26/23 16:13 09/26/23 16:51 09/26/23 18:13 Temperature 98.1 F Temperature Source Temporal Pulse Rate 57 L 47 L Respiratory Rate 16 16 Respiratory Effort Non-Labored Short of Breath Respiratory Depth Normal Respiratory Pattern Normal Blood Pressure 183/74 H 113/71 Blood Pressure Mean 110 85 Pulse Ox 99 98 Oxygen Delivery Method Room Air Room Air Room Air 09/26/23 19:33 Temperature 98.4 F Temperature Source Pulse Rate 51 L Respiratory Rate 19 H Respiratory Effort Respiratory Depth Respiratory Pattern Blood Pressure 112/75 Blood Pressure Mean 87 Pulse Ox 100 Oxygen Delivery Method Positive well nourished and well developed General Appearance ED: well developed and NAD HEENT Reports moist mucous membranes normocephalic and atraumatic Eyes EOMs intact bilaterally and conjunctivae normal General Eye ED: Yes normal appearance of both eyes Neck no lymphadenopathy and supple General: Negative for tenderness Chest Wall Chest: Negative for tenderness Resp normal respiratory effort and normal air movement Effort and Inspection: symmetric chest movement; Negative for respiratory distress Cardio regular rate, regular rhythm and no murmurs Peripheral Pulses: pulses 2+ throughout GI normal to inspection, nondistended, normoactive bowel sounds and non-tender Palpation: Negative for guarding or rebound tenderness present Back/Spine no CVA tenderness and no thoracic nor lumbar tenderness Extremity normal to inspection General Extremety ED: Negative for edema or tenderness General Extremity: Negative for edema Neuro oriented x3 and no sensory deficits noted Sensorium / Orientation: awake and alert Skin no rashes or lesions noted and no wounds MDM MDM MDM Narrative Medical decision making narrative: Interventions / MDM: Differential diagnosis: Dyspnea, viral syndrome Diagnosis considered but do not suspect: Pulm embolism however low risk Wells criteria with a negative D-dimer. Pneumonia however chest x-ray negative. Pneumothorax however symmetric breath sounds bilaterally negative chest x-ray. My EKG interpretation: Sinus rate of 58, no ST changes. Isolated T wave version aVL, nonspecific. Imaging independently reviewed and interpreted by myself: 2 view chest x-ray: No acute process. External documents reviewed: N/A Test considered but not ordered:N/A ED course: Patient sent here for dyspnea worse with deep breaths. She has had a cough also for last month. EKG nonspecific findings. Labs obtained with a D- dimer. Results are negative. Two-view chest x-ray ordered interpreted myself negative for any acute process. She was ambulated with a pulse ox maintained at 98-99%. Discharged outpatient follow-up with strict return precautions. All questions were answered. Re-evaluation: stable Disposition discussed with patient/family/significant other: Patient and significant other. Case discussed with consulting clinician: N/A This note was generated with [employer] dictation software. It may contain incorrect words, spelling, and punctuation that were not noted in checking the note before signing. Lab Data Attestation: I reviewed the patient's lab results. Labs: Laboratory Results - last 24 hr 09/26/23 17:08 WBC 5.8 RBC 4.45 Hgb 13.6 Hct 41.1 MCV 92.4 MCH 30.6 MCHC 33.1 RDW Std Deviation 40.7 RDW Coeff of Toño 12.0 Plt Count 196 MPV 9.3 Immature Gran % (Auto) 0.000 Neut % (Auto) 59.4 Lymph % (Auto) 33.3 Norman % (Auto) 4.5 Eos % (Auto) 1.6 Baso % (Auto) 1.2 H Absolute Neuts (auto) 3.4 Absolute Lymphs (auto) 1.92 Nucleated RBC % 0 D-Dimer Quant (PE/DVT) < 0.27 L Sodium 140 Potassium 3.8 Chloride 111 H Carbon Dioxide 22.0 Anion Gap 7 BUN 17 Creatinine 1.02 Estim Creat Clear Calc 51.32 Est GFR (MDRD) Af Amer 75 Est GFR (MDRD) Non-Af 62 BUN/Creatinine Ratio 16.7 Glucose 97 Calcium 9.4 Discharge Plan Triage Chief Complaint: Shortness of Breath ED Provider: Hany Herrera Dx/Rx/DC Orders Clinical Impression: Dyspnea, Cough Instructions: ED Dyspnea Prescriptions: No Action conjugated estrogens 0.625 mg tablet 1.25 mg PO DAILY 30 Days Qty: 60 acetaminophen [Tylenol] 325 mg capsule 325 mg PO Q6H PRN benzonatate 200 mg capsule 200 mg PO TID Qty: 30 0RF acyclovir 400 mg tablet 400 mg PO TID PRN (Reason: Herpes Simplex) Qty: 90 0RF zonisamide 100 mg capsule 100 mg PO TID 90 Days Qty: 270 1RF Rx Instructions: take 1 capsule by mouth three times a day Primary Care Provider: Zoey Hurd Referrals: Zoey Hurd MD [Primary Care Provider] - 1 Week Activity Restrictions/Additional Instructions: Chest x-ray negative. Blood work including D-dimer negative. EKG normal. Follow-up with your doctor. If you develop worsening symptoms unable to catch her breath especially with walking, return to the ED for reevaluation. Print Language: Georgian Disposition Disposition: Home, Self Care Discharge Date/Time: 09/26/23 19:37
[2023-09-26 16:51] VITALS: O2SAT 99
[2023-09-26] MEDS: 0.9% Normal Saline (500mL Bag) 500 ML 1000 ML IV (17:08)
[2023-09-26 17:23] LABS: Absolute Lymphocyte Count 1.92 X10^3/uL (0.83-4.51); Absolute Neutrophil Count 3.4 X10^3/uL (2.0-7.7); Basophil# 0.07 X10^3/uL; Basophil% 1.2 % (0-1); Eosinophil# 0.09 X10^3/uL; Eosinophils% 1.6 % (0-5); Hematocrit 41.1 % (37-47); Hemoglobin 13.6 g/dL (12.0-15.0); Lymphocyte # 1.92 X10^3/ul (0.83-4.51); Lymphocyte % 33.3 % (19-41); Mean Corp Hgb Conc 33.1 g/dL (32-36); Mean Corpuscular Hgb 30.6 pg (27.0-32.0); Mean Corpuscular Volume 92.4 fL (81-99); Mean Platelet Vol. 9.3 fl (6.2-12.0); Monocyte# 0.26 X10^3/uL; Monocyte% 4.5 % (0-10); NRBC Flagged by Analyzer 0 % (0-5); Neutrophil # 3.43 X10^3/uL (2.7-7.7); Neutrophil % 59.4 % (47-70); Platelet Count 196 K/mm3 (150-450); RBC Distribution Width SD 40.7 fl (35.1-43.9); Red Blood Count 4.45 M/mm3 (4.2-5.4); White Blood Count 5.8 K/mm3 (4.4-11.0)
[2023-09-26 17:43] LABS: Anion Gap 7 (5-15); BUN 17 mg/dL (7-18); BUN/Creat Ratio 16.7 RATIO (10-20); Calcium,Total 9.4 mg/dL (8.5-10.1); Chloride 111 mmol/L (98-107); Creatinine, Serum 1.02 mg/dL (0.55-1.02); EST Glomerular Filtration Rate 62 mL/min (>60); Est Glom Filt Rate - Afr Amer 75 mL/min (>60); Estimated Creatinine Clearance 51.32 ml/min; Glucose 97 mg/dL (74-106); Potassium 3.8 mmol/L (3.5-5.1); Sodium Level 140 mmol/L (136-145)
[2023-09-26 17:44] LABS: D-Dimer Quantitative (DVT/PE) < 0.27 FEU/ug/m (0.27-0.49)
--- NOTE | 2023-09-26 18:10 | RAD_ITS ---
STUDY: X-RAY CHEST REASON FOR EXAM: Female, 48 years old. Fever and cough TECHNIQUE: PA and lateral views of the chest. COMPARISON: 06/20/2017 FINDINGS: EKG leads overlie the chest The lungs are clear and expanded. There is no demonstrated pleural abnormality. Normal size heart. Normal mediastinum and allan. Normal visualized pulmonary arteries. Normal visualized aortic arch and descending thoracic aorta. Normal visualized thoracic spine. Normal visualized ribs, clavicles, and shoulders. There is no demonstrated abnormality of the visualized soft tissue structures of the upper abdomen. RAD/Chest PA and Lateral IMPRESSION: Normal x-ray examination of the chest. Electronically Signed: Donny Katz MD at 20:35 EDT ,
[2023-09-26 18:13] VITALS: BP 113/71; PULSE 47; RESP 16; O2SAT 98
[2023-09-26 19:33] VITALS: BP 112/75; PULSE 51; RESP 19; TEMP 36.9; O2SAT 100
[2023-09-26 19:34] VITALS: O2SAT 99
== END 2023-09-26 19:37 | disposition home or self-care (01) ==
PROVIDERS: Emergency Provider Emergency Medicine; PCP Internal Medicine; Visit Provider Emergency Medicine
DX: R06.02 Shortness of breath (principal); R05.9 Cough, unspecified; R07.89 Other chest pain
CPT/HCPCS: 71046; 80048; 85025; 85379; 93005; 99284; J7040; A4216

== ENCOUNTER → 2023-09-28 | Outpatient (CLI) | payer OTHER, SELFPAY ==
[2023-09-28 13:19] LABS: T4 Free Direct 0.91 ng/dL (0.76-1.46); Thyroid Stim Hormone (TSH) 0.66 uIU/mL (0.358-3.74)
== END | disposition home or self-care (01) ==
LOC: BIMLAB 09:14
PROVIDERS: PCP Internal Medicine; Visit Provider Internal Medicine
DX: R00.1 Bradycardia, unspecified (principal)
CPT/HCPCS: 36415; 84439; 84443

== ENCOUNTER → 2023-10-18 | Outpatient (CLI) | payer OTHER, SELFPAY ==
--- NOTE | 2023-10-18 12:36 | CT_ITS ---
INDICATION: Shortness of breath EXAMINATION: CT CHEST WITH CONTRAST - CT Chest W/ Contrast Injection TECHNIQUE: Helically acquired images were obtained of the chest following IV contrast. The protocol utilizes one or more of the following dose reduction techniques: automated exposure control, adjustment of mA and/or kV according to patient size,and/or use of iterative reconstruction technique. IV Contrast dosage and agent: 75 cc of Isovue-300 RADIATION DOSAGE (If Supplied By Facility): CTDIvol = ( 8.78 ) mGy, DLP = ( 176.37 ) mGycm COMPARISON: No relevant prior comparison study available FINDINGS: LUNGS, PLEURA AND LARGE AIRWAYS: No masses, consolidation, or edema. No pleural effusion or thickening. No pneumothorax. THYROID: No thyroid lesions. HEART AND PERICARDIUM: Heart size is normal. No pericardial effusion. VESSELS: Thoracic aorta is not dilated. No aortic dissection. No evidence of pulmonary embolism. MEDIASTINUM AND HAMLET: No mediastinal or hilar adenopathy. Esophagus is unremarkable. No hiatal hernia. UPPER ABDOMEN: No acute pathology. BONES: No suspicious lytic or blastic abnormality. CT/Chest WITH Contrast IMPRESSION: 1. No evidence of pulmonary embolism. 2. No focal acute infiltrates or pleural effusions. Electronically Signed: Torito Llanes MD at 14:37 EDT ,
== END | disposition home or self-care (01) ==
LOC: CT 12:33
PROVIDERS: PCP Internal Medicine; Referring Provider Internal Medicine; Visit Provider Internal Medicine
DX: R06.00 Dyspnea, unspecified (principal); R05.9 Cough, unspecified
CPT/HCPCS: 71260; Q9967

== ENCOUNTER → 2024-03-12 | Outpatient (CLI) | payer OTHER, SELFPAY ==
[2024-03-12 12:11] LABS: Absolute Lymphocyte Count 1.72 X10^3/uL (0.83-4.51); Absolute Neutrophil Count 1.7 X10^3/uL (2.0-7.7); Basophil# 0.04 X10^3/uL; Basophil% 1.1 % (0-1); Eosinophil# 0.07 X10^3/uL; Eosinophils% 1.9 % (0-5); Hematocrit 42.2 % (37-47); Hemoglobin 13.4 g/dL (12.0-15.0); Lymphocyte # 1.72 X10^3/ul (0.83-4.51); Lymphocyte % 46.1 % (19-41); Mean Corp Hgb Conc 31.8 g/dL (32-36); Mean Corpuscular Hgb 29.4 pg (27.0-32.0); Mean Corpuscular Volume 92.5 fL (81-99); Mean Platelet Vol. 9.9 fl (6.2-12.0); Monocyte# 0.22 X10^3/uL; Monocyte% 5.9 % (0-10); NRBC Flagged by Analyzer 0 % (0-5); Neutrophil # 1.68 X10^3/uL (2.7-7.7); Platelet Count 192 K/mm3 (150-450); RBC Distribution Width CV 12.4 % (11.6-14.6); RBC Distribution Width SD 42.8 fl (35.1-43.9); Red Blood Count 4.56 M/mm3 (4.2-5.4); White Blood Count 3.7 K/mm3 (4.4-11.0)
[2024-03-12 12:41] LABS: Vitamin B12 415 pg/mL (211-911); Vitamin D,25 Hydroxy 40.6 ng/mL
[2024-03-12 13:11] LABS: ALB/GLOB Ratio 1.2 RATIO (0.9-2.4); AST(SGOT) 30 U/L (15-37); Alanine Aminotransfer ALT/SGPT 40 U/L (13-56); Albumin, Serum 3.8 g/dL (3.2-5.0); Alkaline Phosphatase 45 U/L (45-117); Anion Gap 5 (5-15); BUN 17 mg/dL (7-18); BUN/Creat Ratio 16.7 RATIO (10-20); Calcium,Total 8.9 mg/dL (8.5-10.1); Chloride 110 mmol/L (98-107); Cholesterol 176 mg/dL (200); Creatinine, Serum 1.02 mg/dL (0.55-1.02); EST Glomerular Filtration Rate 62 mL/min (>60); Est Glom Filt Rate - Afr Amer 75 mL/min (>60); Globulin 3.3 g/dL (2.2-4.2); Glucose 83 mg/dL (74-106); High Density Lipoprotein 79 mg/dL; Potassium 4.2 mmol/L (3.5-5.1); Protein, Total 7.1 g/dL (6.4-8.2); Sodium Level 138 mmol/L (136-145); Triglycerides 59 mg/dL; Very Low Density Lipoprotein 12 mg/dL (5-40)
== END | disposition home or self-care (01) ==
LOC: BIMLAB 09:02
PROVIDERS: PCP Internal Medicine; Referring Provider Internal Medicine; Visit Provider Internal Medicine
DX: Z00.00 Encounter for general adult medical examination without abnormal findings (principal); E55.9 Vitamin D deficiency, unspecified
CPT/HCPCS: 36415; 80053; 80061; 82306; 82607; 85025

== ENCOUNTER → 2024-04-06 | Outpatient (CLI) | payer OTHER, SELFPAY ==
[2024-04-06 15:25] LABS: Color, Urine Yellow (Yellow); Glucose, Dipstick Normal (Normal); Ketone-Dipstick Negative (Negative); Leukocyte Esterase-Dipstick Negative /ul (Negative); Nitrite-Dipstick Negative (Negative); Occult Blood-Urine Negative /ul (Negative); Protein-Dipstick 15 mg/dl (Negative); Urine Bilirubin Dipstick Negative (Negative); Urine Clarity Clear (Clear); Urine Urobilinogen Normal (Normal)
[2024-04-06 16:18] LABS: Ferritin 19 ng/mL (8-252); Iron 92 ug/dL (50-170); T4 Free Direct 0.95 ng/dL (0.76-1.46); Thyroid Stim Hormone (TSH) 0.463 uIU/mL (0.358-3.740)
[2024-04-09 15:07] LABS: ANTINUCLEAR ANTIBODIES DIRECT Negative (Negative); Anti-dsDNA Ab <1 IU/mL (0-9)
== END | disposition home or self-care (01) ==
LOC: MTLAB 12:51
PROVIDERS: PCP Internal Medicine; Referring Provider Physician Assistant Medical; Visit Provider Physician Assistant Medical
DX: L60.3 Nail dystrophy (principal)
CPT/HCPCS: 36415; 81002; 82728; 83540; 84439; 84443; 86038; 86225

== ENCOUNTER → 2024-05-11 | Outpatient (CLI) | payer OTHER, SELFPAY ==
[2024-05-11 10:20] LABS: Bacteria 0 SEEN /hpf (None Seen); Mucous, Urine 0 SEEN /hpf (<or=2+); Red Blood Cells-Urine 0 SEEN /hpf (0-5)
[2024-05-11 11:56] LABS: Color, Urine Yellow (Yellow); Glucose, Dipstick Normal (Normal); Ketone-Dipstick Negative (Negative); Leukocyte Esterase-Dipstick Negative /ul (Negative); Nitrite-Dipstick Negative (Negative); Occult Blood-Urine Negative /ul (Negative); Protein-Dipstick 15 mg/dl (Negative); Specific Gravity, Urine 1.025 (1.002-1.030); Urine Bilirubin Dipstick Negative (Negative); Urine Clarity Clear (Clear); Urine Urobilinogen Normal (Normal)
[2024-05-11 12:15] LABS: Squamous Epithelial Cells - UA 0-5 SEEN /hpf (5-10); White Blood Cells 0-5 SEEN /hpf (0-5)
== END | disposition home or self-care (01) ==
LOC: LABSPEC 10:10
PROVIDERS: PCP Internal Medicine; Referring Provider Physician Assistant; Visit Provider Physician Assistant
DX: N06.9 Isolated proteinuria with unspecified morphologic lesion (principal)
CPT/HCPCS: 81001

== ENCOUNTER → 2024-06-11 | Outpatient (CLI) | payer OTHER, SELFPAY ==
[2024-06-11 13:19] LABS: Mucous, Urine 0 SEEN /hpf (<or=2+)
[2024-06-11 15:14] LABS: Color, Urine Yellow (Yellow); Glucose, Dipstick Normal (Normal); Ketone-Dipstick Negative (Negative); Leukocyte Esterase-Dipstick Negative /ul (Negative); Nitrite-Dipstick Negative (Negative); Occult Blood-Urine Negative /ul (Negative); Protein-Dipstick 15 mg/dl (Negative); Urine Bilirubin Dipstick Negative (Negative); Urine Clarity Clear (Clear); Urine Urobilinogen Normal (Normal)
[2024-06-11 15:28] LABS: Squamous Epithelial Cells - UA 0-5 SEEN /hpf (5-10)
[2024-06-11 15:29] LABS: Bacteria RARE /hpf (None Seen); Red Blood Cells-Urine 0-5 SEEN /hpf (0-5); White Blood Cells 0-5 SEEN /hpf (0-5)
[2024-06-11 19:18] LABS: Anion Gap 7 (5-15); BUN 26 mg/dL (7-18); BUN/Creat Ratio 27.2 RATIO (10-20); Chloride 110 mmol/L (98-107); Creatinine, Serum 0.96 mg/dL (0.55-1.02); EST Glomerular Filtration Rate 67 mL/min (>60); Est Glom Filt Rate - Afr Amer 81 mL/min (>60); Glucose 82 mg/dL (74-106); Potassium 4.4 mmol/L (3.5-5.1); Sodium Level 143 mmol/L (136-145)
[2024-06-11 21:55] LABS: Microalbumin,Random Urine 12.5 mg/L (NO RANGE EST.); Microalbumin:Creatinine Ratio 9.3 mg/g CRE (<30 mg/g CRE)
[2024-06-15 04:53] LABS: Protein, Urine (Random) 10.2 mg/dL (0.0-12.0); Protein:Creat Ratio 74 mg/g CRE (0-200)
== END | disposition home or self-care (01) ==
LOC: BIMLAB 12:13
PROVIDERS: PCP Internal Medicine; Referring Provider Internal Medicine; Visit Provider Internal Medicine
DX: N06.9 Isolated proteinuria with unspecified morphologic lesion (principal)
CPT/HCPCS: 36415; 80048; 81001; 82043; 82570; 84156

== ENCOUNTER 2024-07-11 11:58 | Emergency (ER) | payer OTHER, SELFPAY ==
[2024-07-11 11:59] VITALS: BP 176/92; PULSE 87; RESP 16; TEMP 36.7; O2SAT 99; BMI 19.8
[2024-07-11 12:11] VITALS: BP 129/83; PULSE 74; RESP 16; O2SAT 100
--- NOTE | 2024-07-11 12:23 | RAD_ITS ---
EXAM: AP and lateral soft tissue neck CLINICAL HISTORY: Pain. COMPARISON: None. TECHNIQUE: Two-view AP and lateral neck. RAD/Neck for Soft Tissue IMPRESSION: Straightening of the cervical spine is seen. [id number]-[id number] degenerative changes of the mid to lower cervical spine are no beth, with moderate disc space narrowing at C5-C6 and mild disc space narrowing at C4-C5 and C6-C7 levels. No fracture, subluxation, or prevertebral soft tissue swelling is noted. No fracture site is identified. Reading Location: [id number]
[2024-07-11] MEDS: diazePAM 5 MG Tablet PO (12:27)
--- NOTE | 2024-07-11 13:30 | EX.ED.DYSGE1 ---
HPI History of Present Illness Chief Complaint: Other, Pain/Inj Informant: patient and spouse/S.O. Narrative Narrative: Patient is a 49-year-old female with past medical history of migraine and anxiety. She states she has been struggling with right sided neck discomfort for a few weeks. She states that today she bent down to pick something up and as she did so she develops increasing sharp stabbing pain along the right neck. She states this led to anxiety and increased shortness of breath and as she is unsure of what is causing her pain she presents for evaluation. She states has been no recent trauma or strangulation injuries and she denies any recent fevers or chills or history of recent intubations or dental procedures. [facility] Medical History (Updated 07/11/24 @ 13:[address] Dwight Dotson, ) Neck complaint Globus sensation Attention deficit Neck pain on right side Vitamin D insufficiency Bradycardia Viral syndrome Anxiety with flying Colon cancer screening Preventative health care Back pain Cystitis Scoliosis Herpes simplex Migraines Seasonal allergies Home Medications ?Medication ?Instructions ?Recorded ?Last Taken ?Type acetaminophen 325 mg capsule 325 mg PO Q6H PRN 10/18/22 Unknown History (Tylenol) acyclovir 400 mg tablet 400 mg PO TID PRN Herpes Simplex 12/21/22 Unknown Rx #90 tabs conjugated estrogens 0.625 mg 1.25 mg PO DAILY 30 days #60 tabs 09/28/23 Unknown History tablet lorazepam 0.5 mg tablet 0.5 mg PO DAILY PRN anxiety #4 tabs 09/28/23 Unknown Rx zonisamide 100 mg capsule 100 mg PO TID 3 months #270 caps 06/11/24 Unknown Rx (Zonegran) baclofen 10 mg tablet 10 mg PO BID PRN muscle spasm #30 06/22/24 Unknown Rx tabs diazepam 5 mg tablet (Valium) 5 mg PO TID PRN muscle spasm 5 07/11/24 Unknown Rx days #15 tabs Allergy/AdvReac Type Severity Reaction Status Date / Time NSAIDS (Non-Steroidal AdvReac Severe Due to her Verified 04/25/24 15:49 Anti-Inflamma Interstitial Cystitis amitriptyline AdvReac Vomiting Verified 04/25/24 15:49 codeine AdvReac Nausea Verified 04/25/24 15:49 erythromycin base AdvReac Vomiting Verified 04/25/24 15:49 (Erythromycin Base) hydrocodone bitartrate (From AdvReac Nausea Verified 04/25/24 15:49 Vicodin) pregabalin (From Lyrica) AdvReac Other Verified 04/25/24 15:49 tramadol AdvReac Nausea/Vom/ Verified 04/25/24 15:49 Diarrhea Family History Mother Breast cancer CVA (cerebral vascular accident) Grandmother Diabetes Father Hypertension Arthritis Surgical History History of laparoscopic appendectomy History of colonoscopy History of delivery History of tonsillectomy History of salpingo-oophorectomy History of hysterectomy Social History Smoking Status: Never smoker alcohol intake: current alcohol intake frequency: holidays/special occasions only substance use type: does not use what type of physical activity do you participate in: aerobics frequency: 1-2 times per week ROS ROS ED Constitutional Constitutional ED: Denies chills or fever(s) Eyes Eyes: Denies blurry vision or change in vision ENT ENT ED: Denies rhinorrhea or sore throat Cardiovascular Cardiovascular: Denies chest pain Respiratory/Chest Respiratory/Chest: Reports dyspnea; Denies cough Gastrointestinal Gastrointestinal: Denies abdominal pain, diarrhea, nausea or vomiting Genitourinary Genitourinary ED: Denies dysuria Musculoskeletal Musculoskeletal: Reports neck pain Integumentary Denies rash Neurologic Neurologic: Denies headache(s) or paresthesias Psychiatric Psychiatric: Reports anxiety Hematologic/Lymphatic Hematologic/Lymphatic: Denies easy bleeding or easy bruising Allergic/Immunologic Allergic/Immunologic ED: Denies mouth swelling or tongue swelling EXAM Physical Exam Const Vital Signs: 07/11/24 11:59 07/11/24 12:05 07/11/24 12:11 Temperature 98.1 F Temperature Source Oral Pulse Rate 87 74 Respiratory Rate 16 16 Respiratory Effort Normal Non-Labored Respiratory Pattern Normal Blood Pressure 176/92 H 129/83 H Blood Pressure Mean 120 98 Pulse Ox 99 100 Oxygen Delivery Method Room Air Room Air 07/11/24 13:37 Temperature 98.1 F Temperature Source Pulse Rate 74 Respiratory Rate 16 Respiratory Effort Respiratory Pattern Blood Pressure 129/83 H Blood Pressure Mean 98 Pulse Ox 100 Oxygen Delivery Method Positive well nourished and well developed General Appearance ED: well developed; Negative for pallor HEENT Reports moist mucous membranes HEENT Narrative: No tongue or lip swelling no oral lesions no airway edema or compromise No secondary findings in the posterior pharynx to suggest infection No trismus or change in voice or difficulty with secretions Eyes PERRL and EOMs intact bilaterally General Eye ED: Negative for scleral icterus Neck Neck Narrative: There is pain on palpation along the right sternocleidomastoid muscle that worsens with sidebending and rotation There is no crepitance or subcutaneous emphysema noted No overlying erythema or warmth No cellulitis or abscess No hematoma No brawny edema in the submental space to suggest Cody angina Resp normal respiratory effort and clear to auscultation bilaterally Resp Narrative: No nasal flaring retractions tachypnea or accessory muscle use No stridor noted Cardio regular rate and regular rhythm Extremity normal to inspection Neuro oriented x3, CN's II-XII intact bilaterally and no sensory deficits noted Sensorium / Orientation: alert Motor Exam: strength 5/5 throughout Psych Mood & Affect: anxious Skin no rashes or lesions noted and no wounds General Skin Exam: Negative for jaundice or pallor MDM MDM MDM Narrative Medical decision making narrative: Patient arrived to the ER hypertensive but was visibly anxious. She reported persistent neck pain for few weeks that worsened today after a movement. There is no report or signs of trauma and therefore my concern for a cervical compression fracture or spondylolisthesis is low. The pain does not radiate into the right arm going against cervical radiculopathy. Physical exam does not reveal signs of posterior pharynx infection such as peritonsillar abscess strep pharyngitis or retropharyngeal abscess. In order to ensure that there is no pneumomediastinum or narrowing of her airway from the potential epiglottitis I did elect to perform a soft tissue neck x-ray. It revealed no acute finding. The patient was given oral Valium for anxiety relief as well as muscle spasm. On repeat evaluation she did report improvement of her symptoms her blood pressure improved as well and she remained in no acute distress. Therefore this time I do not feel there is need for further evaluation and she is otherwise safe for discharge History & Record Review Discussion w/independent historian: Patient and Significant other Radiography Diagnostic Testing: Clinical Impression(s) from Imaging Studies Soft Tissue Neck X-Ray 07/11/24 12:23 IMPRESSION: Straightening of the cervical spine is seen. [id number]-fl-[id number] degenerative changes of the mid to lower cervical spine are noted, with moderate disc space narrowing at C5-C6 and mild disc space narrowing at C4-C5 and C6-C7 levels. No fracture, subluxation, or prevertebral soft tissue swelling is noted. No fracture site is identified. Reading Location: [address] Soft tissue neck x-ray as interpreted by the emergency medicine physician reveals no free air swelling of the epiglottis or airway compromise Discharge Plan Triage Chief Complaint: Other, Pain/Inj ED Provider: Dwight Dotson Dx/Rx/DC Orders Clinical Impression: Acute cervical myofascial strain, Cervical paraspinal muscle spasm, Anxiety, History of migraine headaches Instructions: ED Neck Sprain or Strain, ED Neck Spasm, No Trauma Prescriptions: New diazepam [Valium] 5 mg tablet 5 mg PO TID PRN (Reason: muscle spasm) 5 Days Qty: 15 0RF No Action conjugated estrogens 0.625 mg tablet 1.25 mg PO DAILY 30 Days Qty: 60 acetaminophen [Tylenol] 325 mg capsule 325 mg PO Q6H PRN lorazepam 0.5 mg tablet 0.5 mg PO DAILY PRN (Reason: anxiety) Qty: 4 0RF acyclovir 400 mg tablet 400 mg PO TID PRN (Reason: Herpes Simplex) Qty: 90 0RF zonisamide [Zonegran] 100 mg capsule 100 mg PO TID 90 Days Qty: 270 1RF baclofen 10 mg tablet 10 mg PO BID PRN (Reason: muscle spasm) Qty: 30 0RF Primary Care Provider: Zoey Hurd Referrals: Zoey Hurd MD [Primary Care Provider] - Activity Restrictions/Additional Instructions: Please continue to stretch and heat your neck to reduce pain and speed healing and return to the ER should you have any further concerns Print Language: Kinyarwanda Disposition Disposition: Home, Self Care Discharge Date/Time: 07/11/24 13:40
[2024-07-11 13:37] VITALS: BP 129/83; PULSE 74; RESP 16; TEMP 36.7; O2SAT 100
== END 2024-07-11 13:40 | disposition home or self-care (01) ==
PROVIDERS: Emergency Provider Emergency Medicine; PCP Internal Medicine; Referring Provider Emergency Medicine; Visit Provider Emergency Medicine
DX: S16.1XXA Strain of muscle, fascia and tendon at neck level, initial encounter (principal); M62.838 Other muscle spasm; X58.XXXA Exposure to other specified factors, initial encounter; F41.9 Anxiety disorder, unspecified; G43.909 Migraine, unspecified, not intractable, without status migrainosus; Z79.899 Other long term (current) drug therapy
CPT/HCPCS: 70360; 99282

== ENCOUNTER 2024-07-12 10:34 | Inpatient (IN) | payer OTHER, SELFPAY ==
[2024-07-12] VITALS (11 sets, daily range): BP systolic 98–159; BP diastolic 62–88; PULSE 55–71; RESP 13–26; TEMP 36.2–37; O2SAT 96–100; BMI 19.8; BMI 19.2
--- NOTE | 2024-07-12 11:03 | EKG12_ITS ---
Test Reason : CP Blood Pressure : */* mmHG Vent. Rate : 65 BPM Atrial Rate : 65 BPM P-R Int : 134 ms QRS Dur : 80 ms QT Int : 432 ms P-R-T Axes : 89 96 57 degrees QTcB Int : 449 ms Normal sinus rhythm Rightward axis Borderline ECG Confirmed by SHANTHI VERONICA, KATARINA ([id number]), newspaper managing editor SIERRA BILL ([id number]) on 07/13/2024 8:21:43 AM Referred By: ANI Confirmed By: KATARINA MAKI MD
--- NOTE | 2024-07-12 11:04 | EDS_ITS ---
HPI History of Present Illness Chief Complaint: Chest Other Informant: patient Narrative Narrative: 49-year-old female presenting to the emergency room with right-sided chest pain. Patient states that she was in the emergency room yesterday for neck pain and went saw the chiropractor today whom she normally sees for this neck pain. She states that she received several injections on the right side of her neck that she tasted the medicine. She states that she then developed pain on the right side of her chest. Nothing seems to make it better or worse. She states is never had this chest pain with the injections before. Chiropractor was unsure of the etiology of her chest pain. Patient was noted to be substantially anxious yesterday in the emergency department to calm down once family arrived. [facility] Medical History Neck complaint Globus sensation Attention deficit Neck pain on right side Vitamin D insufficiency Bradycardia Viral syndrome Anxiety with flying Colon cancer screening Preventative health care Back pain Cystitis Scoliosis Herpes simplex Migraines Seasonal allergies Home Medications ?Medication ?Instructions ?Recorded ?Last Taken ?Type acetaminophen 325 mg capsule 325 mg PO Q6H PRN pain Unknown History (Tylenol) acyclovir 400 mg tablet 400 mg PO TID PRN Herpes Sim plex 12/21/22 Unknown Rx #90 tabs zonisamide 100 mg capsule 100 mg PO TID 3 months #270 caps 06/11/24 07/11/24 Rx (Zonegran) diazepam 5 mg tablet (Valium) 5 mg PO TID PRN muscle s pasm 5 07/11/24 Unknown Rx days #15 tabs estradiol 0.0375 mg/24 hr 1 patch topical WESA 5 07/11/24 History semiweekly transdermal patch Allergy/AdvReac Type Severity Reaction Status Date / Time NSAIDS (Non-Steroidal AdvReac Severe Due to her Verified 07/12/24 10:34 Anti-Inflamma Interstitial Cystitis amitriptyline AdvReac Vomiting Verified 07/12/24 10:34 codeine AdvReac Nausea Verified 07/12/24 10:34 erythromycin base AdvReac Vomiting Verified 07/12/24 10:34 (Erythromycin Base) hydrocodone bitartrate (From AdvReac Nausea Verified 07/12/24 10:34 Vicodin) pregabalin (From Lyrica) AdvReac Other Verified 07/12/24 10:34 tramadol AdvReac Nausea/Vom/ Verified 07/12/24 10:34 Diarrhea Family History Mother Breast cancer CVA (cerebral vascular accident) Grandmother Diabetes Father Hypertension Arthritis Surgical History History of laparoscopic appendectomy History of colonoscopy History of delivery History of tonsillectomy History of salpingo-oophorectomy History of hysterectomy Social History (Updated 07/12/24 @ 11:30 by Kenyetta Bonds) household members: spouse housing: house Smoking Status: Never smoker alcohol intake: current alcohol intake frequency: holidays/special occasions only substance use type: does not use what type of physical activity do you participate in: aerobics frequency: 1-2 times per week ROS ROS ED Constitutional Constitutional ED: Denies chills, fever(s) or weight loss Eyes Eyes: Denies change in vision or diplopia ENT ENT ED: Denies ear pain, rhinorrhea or sore throat Cardiovascular Cardiovascular: Reports chest pain; Denies orthopnea, palpitations or racing heartbeat Respiratory/Chest Respiratory/Chest: Denies cough, dyspnea or orthopnea Gastrointestinal Gastrointestinal: Denies abdominal pain, diarrhea, nausea or vomiting Genitourinary Genitourinary ED: Denies dysuria, hematuria or urinary frequency Musculoskeletal Musculoskeletal: Reports neck pain; Denies arthralgias or myalgias Integumentary Denies abscess or rash Neurologic Neurologic: Denies headache(s) or weakness Psychiatric Psychiatric: Reports anxiety; Denies depression, suicidal ideation or suicidal thoughts Endocrine Endocrinology: Denies polydipsia, polyphagia or polyuria Allergic/Immunologic Allergic/Immunologic ED: Denies mouth swelling, tongue swelling or urticaria EXAM Physical Exam Narrative Exam Narrative: Patient is up pacing the room holding her right anterior chest/breast region. Const Vital Signs: 07/12/24 10:34 07/12/24 10:34 07/12/24 12:20 Temperature 97.2 F L Temperature Source Temporal Pulse Rate 69 Pulse Rate [1 (Initial Baseline)] Pulse Rate [2] Pulse Rate [3] Pulse Rate [4] Pulse Rate [5] Pulse Rate [6] Pulse Rate [7] Pulse Rate [8] Respiratory Rate 14 Respiratory Rate [1 (Initial Baseline)] Respiratory Rate [2] Respiratory Rate [3] Respiratory Rate [4] Respiratory Rate [5] Respiratory Rate [6] Respiratory Rate [7] Respiratory Rate [8] Respiratory Effort Normal Non-Labored Blood Pressure 131/88 H Blood Pressure [1 (Initial Baseline)] Blood Pressure [2] Blood Pressure [3] Blood Pressure [4] Blood Pressure [5] Blood Pressure [6] Blood Pressure [7] Blood Pressure [8] Blood Pressure Mean 102 Baseline BP Pulse Ox 98 Oxygen Delivery Method Room Air Oxygen Delivery Method [3] Oxygen Delivery Method [4] Oxygen Delivery Method [5] Oxygen Delivery Method [6] Oxygen Delivery Method [7] Oxygen Delivery Method [8] Oxygen Flow Rate (L/min) Oxygen Flow Rate (L/min) [1 (Initial Baseline)] Oxygen Flow Rate (L/min) [2] Oxygen Flow Rate (L/min) [3] Oxygen Flow Rate (L/min) [4] Oxygen Flow Rate (L/min) [5] Oxygen Flow Rate (L/min) [6] Oxygen Flow Rate (L/min) [7] Oxygen Flow Rate (L/min) [8] EtCo2 (Normal 35-45 , high quality CPR 10-20 & ROSC>/=40mmHg 17 EtCo2 (Normal 35-45 , high quality CPR 10-20 & ROSC>/=40mmHg [1 (Initial Baseline)] EtCo2 (Normal 35-45 , high quality CPR 10-20 & ROSC>/=40mmHg [2] EtCo2 (Normal 35-45 , high quality CPR 10-20 & ROSC>/=40mmHg [3] EtCo2 (Normal 35-45 , high quality CPR 10-20 & ROSC>/=40mmHg [4] EtCo2 (Normal 35-45 , high quality CPR 10-20 & ROSC>/=40mmHg [5] EtCo2 (Normal 35-45 , high quality CPR 10-20 & ROSC>/=40mmHg [6] EtCo2 (Normal 35-45 , high quality CPR 10-20 & ROSC>/=40mmHg [7] EtCo2 (Normal 35-45 , high quality CPR 10-20 & ROSC>/=40mmHg [8] 07/12/24 12:21 07/12/24 12:22 07/12/24 13:00 Temperature 98.6 F Temperature Source Pulse Rate 71 64 Pulse Rate [1 (Initial Baseline)] 68 Pulse Rate [2] 62 Pulse Rate [3] 59 L Pulse Rate [4] 62 Pulse Rate [5] 55 L Pulse Rate [6] 66 Pulse Rate [7] 62 Pulse Rate [8] 66 Respiratory Rate 19 H 20 H Respiratory Rate [1 (Initial Baseline)] 21 H Respiratory Rate [2] 24 H Respiratory Rate [3] 13 Respiratory Rate [4] 16 Respiratory Rate [5] 22 H Respiratory Rate [6] 23 H Respiratory Rate [7] 26 H Respiratory Rate [8] 22 H Respiratory Effort Blood Pressure 159/88 H 116/75 Blood Pressure [1 (Initial Baseline)] 129/73 H Blood Pressure [2] 118/68 Blood Pressure [3] 113/73 Blood Pressure [4] 116/74 Blood Pressure [5] 116/66 Blood Pressure [6] 108/64 Blood Pressure [7] 109/67 Blood Pressure [8] 115/75 Blood Pressure Mean Baseline BP 159/88 Pulse Ox 100 100 Oxygen Delivery Method Nasal Cannula Nasal Cannula Oxygen Delivery Method [3] Nasal Cannula Oxygen Delivery Method [4] Nasal Cannula Oxygen Delivery Method [5] Nasal Cannula Oxygen Delivery Method [6] Nasal Cannula Oxygen Delivery Method [7] Nasal Cannula Oxygen Delivery Method [8] Nasal Cannula Oxygen Flow Rate (L/min) 2 2 Oxygen Flow Rate (L/min) [1 (Initial Baseline)] 2 Oxygen Flow Rate (L/min) [2] 2 Oxygen Flow Rate (L/min) [3] 2 Oxygen Flow Rate (L/min) [4] 2 Oxygen Flow Rate (L/min) [5] 2 Oxygen Flow Rate (L/min) [6] 2 Oxygen Flow Rate (L/min) [7] 2 Oxygen Flow Rate (L/min) [8] 2 EtCo2 (Normal 35-45 , high quality CPR 10-20 & ROSC>/=40mmHg 17 27 EtCo2 (Normal 35-45 , high quality CPR 10-20 & ROSC>/=40mmHg [1 (Initial Baseline)] 18 EtCo2 (Normal 35-45 , high quality CPR 10-20 & ROSC>/=40mmHg [2] 17 EtCo2 (Normal 35-45 , high quality CPR 10-20 & ROSC>/=40mmHg [3] 23 EtCo2 (Normal 35-45 , high quality CPR 10-20 & ROSC>/=40mmHg [4] 31 EtCo2 (Normal 35-45 , high quality CPR 10-20 & ROSC>/=40mmHg [5] 31 EtCo2 (Normal 35-45 , high quality CPR 10-20 & ROSC>/=40mmHg [6] 29 EtCo2 (Normal 35-45 , high quality CPR 10-20 & ROSC>/=40mmHg [7] 27 EtCo2 (Normal 35-45 , high quality CPR 10-20 & ROSC>/=40mmHg [8] 07/12/24 13:02 07/12/24 15:00 07/12/24 15:43 Temperature 98.3 F Temperature Source Pulse Rate 67 61 61 Pulse Rate [1 (Initial Baseline)] Pulse Rate [2] Pulse Rate [3] Pulse Rate [4] Pulse Rate [5] Pulse Rate [6] Pulse Rate [7] Pulse Rate [8] Respiratory Rate 15 26 H 26 H Respiratory Rate [1 (Initial Baseline)] Respiratory Rate [2] Respiratory Rate [3] Respiratory Rate [4] Respiratory Rate [5] Respiratory Rate [6] Respiratory Rate [7] Respiratory Rate [8] Respiratory Effort Blood Pressure 115/80 123/78 H Blood Pressure [1 (Initial Baseline)] Blood Pressure [2] Blood Pressure [3] Blood Pressure [4] Blood Pressure [5] Blood Pressure [6] Blood Pressure [7] Blood Pressure [8] Blood Pressure Mean 91 93 Baseline BP Pulse Ox 100 100 100 Oxygen Delivery Method Oxygen Delivery Method [3] Oxygen Delivery Method [4] Oxygen Delivery Method [5] Oxygen Delivery Method [6] Oxygen Delivery Method [7] Oxygen Delivery Method [8] Oxygen Flow Rate (L/min) Oxygen Flow Rate (L/min) [1 (Initial Baseline)] Oxygen Flow Rate (L/min) [2] Oxygen Flow Rate (L/min) [3] Oxygen Flow Rate (L/min) [4] Oxygen Flow Rate (L/min) [5] Oxygen Flow Rate (L/min) [6] Oxygen Flow Rate (L/min) [7] Oxygen Flow Rate (L/min) [8] EtCo2 (Normal 35-45 , high quality CPR 10-20 & ROSC>/=40mmHg EtCo2 (Normal 35-45 , high quality CPR 10-20 & ROSC>/=40mmHg [1 (Initial B aseline)] EtCo2 (Normal 35-45 , high quality CPR 10-20 & ROSC>/=40mmHg [2] EtCo2 (Normal 35-45 , high quality CPR 10-20 & ROSC>/=40mmHg [3] EtCo2 (Normal 35-45 , high quality CPR 10-20 & ROSC>/=40mmHg [4] EtCo2 (Normal 35-45 , high quality CPR 10-20 & ROSC>/=40mmHg [5] EtCo2 (Normal 35-45 , high quality CPR 10-20 & ROSC>/=40mmHg [6] EtCo2 (Normal 35-45 , high quality CPR 10-20 & ROSC>/=40mmHg [7] EtCo2 (Normal 35-45 , high quality CPR 10-20 & ROSC>/=40mmHg [8] Positive well nourished and well developed General Appearance ED: well developed and NAD HEENT Reports normocephalic, head/scalp atraumatic and moist mucous membranes Eyes PERRL and EOMs intact bilaterally Neck no lymphadenopathy, supple and no JVD Neck Narrative: There are several small Band-Aids applied along the trapezius musculature on the right. I do not appreciate significant swelling ecchymosis subcutaneous emphysema or spasm. Chest Wall inspection of chest normal and palpation of chest normal Resp normal respiratory effort and clear to auscultation bilaterally Cardio regular rate, regular rhythm and no murmurs GI normal to inspection, nondistended, normoactive bowel sounds and non-tender Palpation: soft Back/Spine no CVA tenderness and normal ROM Extremity normal to inspection General Extremety ED: Negative for edema General Extremity: Negative for edema Neuro oriented x3 and CN's II-XII intact bilaterally Sensorium / Orientation: alert Motor Exam: strength 5/5 throughout Psych Mood & Affect: anxious and tearful; Negative for depressed Skin no rashes or lesions noted and no wounds MDM MDM MDM Narrative Medical decision making narrative: Differential diagnosis includes but not limited to chest wall pain muscle spasm pneumothorax pleurisy anxiety Patient initially declined chest x-ray but after discussion we obtained a chest x-ray. I have interpretation of this is a 25% pneumothorax on the right. EKG was performed shows a sinus rhythm. Basic blood work was negative. Discussed the case with on-call surgeon Dr. Engel and plan for pigtail catheter. Patient provided informed written consent for procedural sedation using propofol. Patient was placed on the monitor in the usual set up performed. The right lateral chest wall was washed with Betadine and allowed to dry. Sterile field was set up. Patient was sedated using propofol boluses of 1 mg/kg bolus followed by half milligram per kilogram bolus to maintain sedation. Using a pigtail catheter kit pleural space was entered immediately after entering the pleural space the needle trocar was removed and catheter advanced. This was sutured into place and then taped in place. The catheter was placed to wall suction through waterseal. Intermittent bubbling is noted. Postprocedural x- ray shows residual pneumothorax. A CT of the chest was obtained and is currently pending. Dr. Engel is down to evaluate the patient and plan will be admission. History & Record Review Discussion w/independent historian: Patient Lab Data Attestation: I reviewed the patient's lab results. Labs: Laboratory Results - last 24 hr 07/12/24 12:00 WBC 4.9 RBC 4.60 Hgb 14.0 Hct 41.4 MCV 90.0 MCH 30.4 MCHC 33.8 RDW Std Deviation 39.1 RDW Coeff of Toño 11.9 Plt Count 186 MPV 8.9 Immature Gran % (Auto) 0.200 Neut % (Auto) 58.4 Lymph % (Auto) 33.5 [place] % (Auto) 5.5 Eos % (Auto) 1.4 Baso % (Auto) 1.0 Absolute Neuts (auto) 2.8 Absolute Lymphs (auto) 1.63 Nucleated RBC % 0 Sodium 138 Potassium 4.1 Chloride 106 Carbon Dioxide 22.4 Anion Gap 10 BUN 24 H Creatinine 0.90 Estim Creat Clear Calc 60.14 Est GFR (MDRD) Non-Af 80 BUN/Creatinine Ratio 27.2 H Glucose 90 Calcium 9.0 Radiography Diagnostic Testing: Clinical Impression(s) from Imaging Studies Chest X-Ray 07/12/24 11:12 IMPRESSION: Right-sided pneumothorax, approximately 30% in volume reduction. Findings were discussed with Dr. Garcia by phone on 07/12/24 at 1144 hours. Reading Location: [facility] Chest X-Ray 07/12/24 12:40 IMPRESSION: 1. Stable pneumothorax status post chest tube placement. Reading Location: [facility] Chest CT 07/12/24 14:23 IMPRESSION: 1. Small right pneumothorax with a small caliber right-sided chest tube in place. The chest tube is noted to be kinked within the chest wall. Repositioning is recommended. Reading Location: [facility] EKG Initial EKG: Attestation: I personally reviewed and interpreted this EKG as follows: Comments: Normal sinus rhythm ventricular rate 65 bpm Management Discussion w/another healthcare provider: Hospitalist (Dr Schwartz) and Optical Instrument Specialist (Dr. Engel) Discharge Plan Dx/Rx/DC Orders Clinical Impression: Acute chest pain, Pneumothorax Disposition Disposition: Acute Care Hospital [facility]
--- NOTE | 2024-07-12 11:12 | RAD_ITS ---
EXAM: XR Chest, 2 Views CLINICAL INDICATION: CHEST PAIN TECHNIQUE: Frontal and lateral views of the chest. COMPARISON: No relevant prior studies available. FINDINGS: LUNGS AND PLEURAL SPACES: Right-sided pneumothorax, approximately 30% in volume reduction. HEART: Unremarkable. No cardiomegaly. MEDIASTINUM: Unremarkable. Normal mediastinal contour. BONES/JOINTS: Unremarkable. No acute fracture. RAD/Chest PA and Lateral IMPRESSION: Right-sided pneumothorax, approximately 30% in volume reduction. Findings were discussed with Dr. Garcia by phone on 07/12/24 at 1144 hours. Reading Location[facility]
[2024-07-12] MEDS: Lidocaine 1% (20 ml mdv) 20 ML Vial 10 ML INFILT (12:01)
[2024-07-12] MEDS: Morphine 4 MG/ML Syringe IV ×2 (12:06→13:58)
[2024-07-12] MEDS: Ondansetron 4 MG/2 ML Vial IV ×2 (12:06→18:52)
[2024-07-12 12:08] LABS: Absolute Lymphocyte Count 1.63 X10^3/uL (0.83-4.51); Absolute Neutrophil Count 2.8 X10^3/uL (2.0-7.7); Basophil# 0.05 X10^3/uL; Eosinophil# 0.07 X10^3/uL; Eosinophils% 1.4 % (0-5); Hematocrit 41.4 % (37-47); Lymphocyte # 1.63 X10^3/ul (0.83-4.51); Lymphocyte % 33.5 % (19-41); Mean Corp Hgb Conc 33.8 g/dL (32-36); Mean Corpuscular Hgb 30.4 pg (27.0-32.0); Mean Platelet Vol. 8.9 fl (6.2-12.0); Monocyte# 0.27 X10^3/uL; Monocyte% 5.5 % (0-10); NRBC Flagged by Analyzer 0 % (0-5); Neutrophil # 2.84 X10^3/uL (2.7-7.7); Neutrophil % 58.4 % (47-70); Platelet Count 186 K/mm3 (150-450); RBC Distribution Width CV 11.9 % (11.6-14.6); RBC Distribution Width SD 39.1 fl (35.1-43.9); White Blood Count 4.9 K/mm3 (4.4-11.0)
[2024-07-12] MEDS: Propofol 200 MG/20 ML Vial IV BOLUS (12:08)
--- NOTE | 2024-07-12 12:40 | RAD_ITS ---
PROCEDURE: CHEST 1 VIEW (PORTABLE) 07/12/2024 REASON FOR EXAM: CHEST TUBE PLACEMENT TECHNIQUE: Frontal view of the chest. COMPARISON: 07/12/2024 FINDINGS: A small right pneumothorax is again noted, appearing similar in size to the previous exam. There is a proximally 3.5 cm of apical lucency. There has been interval placement of a right-sided small caliber chest tube. Minimal atelectasis is present at the right lung base. The cardiomediastinal silhouette is unremarkable. No acute osseous or soft tissue abnormality. RAD/Chest 1 View (Portable) IMPRESSION: 1. Stable pneumothorax status post chest tube placement. Reading Location: [facility]
[2024-07-12 12:49] LABS: Anion Gap 10 (5-15); BUN 24 mg/dL (4-19); BUN/Creat Ratio 27.2 RATIO (10-20); Carbon Dioxide 22.4 mmol/L (21.0-32.0); Chloride 106 mmol/L (98-108); EST Glomerular Filtration Rate 80 (>60); Estimated Creatinine Clearance 60.14 ml/min (50-250); Glucose 90 mg/dL (70-99); Potassium 4.1 mmol/L (3.3-5.1); Sodium Level 138 mmol/L (133-145)
--- NOTE | 2024-07-12 14:23 | CT_ITS ---
PROCEDURE: CHEST WITH CONTRAST 07/12/2024 REASON FOR EXAM: PNEUMOTHORAX TECHNIQUE: Axial chest CT with intravenous contrast. Coronal and Sagittal reconstruction series were provided. One or more dose reduction techniques were used (e.g., Automated exposure control, adjustment of the mA and/or kV according to patient size, use of iterative reconstruction technique). COMPARISON: 07/12/2024 FINDINGS: Lungs/Pleura:A small right pneumothorax is present.A small caliber right-sided chest tube is present. The tube is noted to be kinked in the chest wall. Mild atelectasis is present in the lung bases. Cardiovascular:The heart is normal in size.No coronary artery calcifications are identified.The aorta and pulmonary arteries are unremarkable. Pericardium:No effusion. Mediastinum:Unremarkable. Lymph nodes:No lymph node enlargement identified on this noncontrast CT. Bones:No acute osseous abnormality. Soft tissues:Unremarkable. Upper abdomen:Unremarkable. CT/Chest WITH Contrast IMPRESSION: 1. Small right pneumothorax with a small caliber right-sided chest tube in plac e. The chest tube is noted to be kinked within the chest wall. Repositioning is recommended. Reading Location: [facility]
--- NOTE | 2024-07-12 15:58 | CON.PCM.SX_ITS ---
Assessment & Plan Assessment/Plan (1) Iatrogenic pneumothorax: PLAN: Plan Patient okay for diet Right percutaneous chest tube to Pleur-evac -20 connected to wall at continuous suction greater than 20. Will get a chest x-ray in the morning. Patient is aware that if there is still a pneumothorax present may need to adjust the percutaneous tube over guidewire. Makeda Engel M.D. Pager: [phone] [facility] [address] [place] [address], [facility] [address] [place] [address] Office: [phone] HPI Consult Data Date of Consult: 07/13/24 HPI Narrative Reason for Consultation: Right pneumothorax-iatrogenic HPI Narrative: MARIYA BAKER, is a 49 F who presents to the ER found to have a right pneumothorax from her chiropractic injections in her neck's and trapezius on the right. Chest x-ray showed about a 20% pneumo. 8 Bangladeshi percutaneous chest tube was placed in the ER. It was noted to be fissured on chest CT however the pneumothorax was smaller. Chest tube was placed to Pleur-evac at -20 suction. Patient was having no symptoms of shortness of breath. [facility] Medical History Neck complaint Globus sensation Attention deficit Neck pain on right side Vitamin D insufficiency Bradycardia Viral syndrome Anxiety with flying Colon cancer screening Preventative health care Back pain Cystitis Scoliosis Herpes simplex Migraines Seasonal allergies Home Medications ?Medication ?Instructions ?Recorded ?Last Taken ?Type acetaminophen 325 mg capsule 325 mg PO Q6H PRN pain Unknown History (Tylenol) acyclovir 400 mg tablet 400 mg PO TID PRN Herpes Sim plex 12/21/22 Unknown Rx #90 tabs zonisamide 100 mg capsule 100 mg PO TID 3 months #270 caps 06/11/24 07/11/24 Rx (Zonegran) diazepam 5 mg tablet (Valium) 5 mg PO TID PRN muscle s pasm 5 07/11/24 Unknown Rx days #15 tabs estradiol 0.0375 mg/24 hr 1 patch topical WESA 5 07/11/24 History semiweekly transdermal patch Allergy/AdvReac Type Severity Reaction Status Date / Time NSAIDS (Non-Steroidal AdvReac Severe Due to her Verified 07/12/24 10:34 Anti-Inflamma Interstitial Cystitis amitriptyline AdvReac Vomiting Verified 07/12/24 10:34 codeine AdvReac Nausea Verified 07/12/24 10:34 erythromycin base AdvReac Vomiting Verified 07/12/24 10:34 (Erythromycin Base) hydrocodone bitartrate (From AdvReac Nausea Verified 07/12/24 10:34 Vicodin) pregabalin (From Lyrica) AdvReac Other Verified 07/12/24 10:34 tramadol AdvReac Nausea/Vom/ Verified 07/12/24 10:34 Diarrhea Family History Mother Breast cancer CVA (cerebral vascular accident) Grandmother Diabetes Father Hypertension Arthritis Surgical History History of laparoscopic appendectomy History of colonoscopy History of delivery History of tonsillectomy History of salpingo-oophorectomy History of hysterectomy Social History (Updated 07/12/24 @ 11:30 by Kenyetta Bonds) household members: spouse housing: house Smoking Status: Never smoker alcohol intake: current alcohol intake frequency: holidays/special occasions only substance use type: does not use what type of physical activity do you participate in: aerobics frequency: 1-2 times per week ROS Constitutional Constitutional: Denies anorexia or chills ENT HEENT: Denies dizziness Cardiovascular Cardiovascular: Denies chest pain Respiratory/Chest Respiratory/Chest: Denies shortness of breath at rest Gastrointestinal Gastrointestinal: Denies abdominal pain Musculoskeletal Musculoskeletal: Denies joint pain Integumentary Integumentary: Denies rash Neurologic Neurologic: Denies focal weakness Endocrine Endocrinology: Denies palpitations Hematologic/Lymphatic Hematologic/Lymphatic: Denies easy bleeding Physical Exam Const alert, oriented x3 and no apparent distress General Appearance: cooperative HEENT normocephalic Neck supple Chest Chest Narrative: Right 8 Bangladeshi percutaneous chest tube in place, hooked up to Pleur-evac at -20, occasional airleak in canister Resp normal respiratory effort Cardio Rate: regular rate GI soft to palpation, non-tender and non-distended Extremity normal to inspection Skin no rashes or lesions noted Neuro CN's II-XII intact bilaterally Psych Mood & Affect: anxious Lab / Micro Data 07/13/24 06:13 07/13/24 06:13 Labs: Laboratory Results - last 24 hr 07/12/24 12:00: WBC 4.9, RBC 4.60, Hgb 14.0, Hct 41.4, MCV 90.0, MCH 30.4, MCHC 33.8, RDW Std Deviation 39.1, RDW Coeff of Toño 11.9, Plt Count 186, MPV 8.9, Immature Gran % (Auto) 0.200, Neut % (Auto) 58.4, Lymph % (Auto) 33.5, [place] % (Auto) 5.5, Eos % (Auto) 1.4, Baso % (Auto) 1.0, Absolute Neuts (auto) 2.8, Absolute Lymphs (auto) 1.63, Nucleated RBC % 0, Sodium 138, Potassium 4.1, Chloride 106, Carbon Dioxide 22.4, Anion Gap 10, BUN 24 H, Creatinine 0.90, Estim Creat Clear Calc 60.14, Est GFR (MDRD) Non-Af 80, BUN/Creatinine Ratio 27.2 H, Glucose 90, Calcium 9.0 Imaging Radiology Impression Chest X-Ray 07/12/24 11:12 IMPRESSION: Right-sided pneumothorax, approximately 30% in volume reduction. Findings were discussed with Dr. Garcia by phone on 07/12/24 at 1144 hours. Reading Location: [facility] Chest X-Ray 07/12/24 12:40 IMPRESSION: 1. Stable pneumothorax status post chest tube placement. Reading Location: [facility] Chest CT 07/12/24 14:23 IMPRESSION: 1. Small right pneumothorax with a small caliber right-sided chest tube in place. The chest tube is noted to be kinked within the chest wall. Repositioning is recommended. Reading Location: [facility] Charges/Coding Visit Charges Inpatient E&M: 48064 Init Hosp L3
--- NOTE | 2024-07-12 16:06 | PCM.HP.STD ---
HPI - General General Date of Admission: 07/12/24 Date of Service: 07/12/24 Chief Complaint: Right-sided chest pain HPI Narrative MARIYA BAKER, is a 49-year-old female with history of migraines, herpes simplex, anxiety, muscle spasms presented to [facility] ED 07/12/2024 for right sided chest pain. She was in the emergency room yesterday for neck pain and then went and saw the chiropractor today who she usually follows with. She stated that she received several injections on the right side of her neck and felt that she tasted the medicine, she then developed pain on the right side of her chest but nothing making it better and nothing making it worse. In the ED patient afebrile, vitally stable, saturating 98% on room air. Lab workup unremarkable however patient was found on chest x-ray to have a right-sided pneumothorax of approximately 30% volume reduction. Chest tube placed and x-ray redemonstrated small right pneumothorax which was similar in size with about 3.5 cm of apical lucency. Patient then underwent CT of the chest which showed small right pneumothorax with small caliber right-sided chest tube in place which was kinked within the chest wall and repositioning recommended. Surgery contacted and evaluated patient bedside. Hospitalist contacted for admission. Patient evaluated at bedside, reports that she still having right-sided pain but a lot of it is due to the tube, patient anxious but denies any other new or acute complaints. [facility] Medical History Neck complaint Globus sensation Attention deficit Neck pain on right side Vitamin D insufficiency Bradycardia Viral syndrome Anxiety with flying Colon cancer screening Preventative health care Back pain Cystitis Scoliosis Herpes simplex Migraines Seasonal allergies Home Medications ?Medication ?Instructions ?Recorded ?Last Taken ?Type acetaminophen 325 mg capsule 325 mg PO Q6H PRN pain 10/18/22 Unknown History (Tylenol) acyclovir 400 mg tablet 400 mg PO TID PRN Herpes Simplex 12/21/22 Unknown Rx #90 tabs zonisamide 100 mg capsule 100 mg PO TID 3 months #270 caps 06/11/24 07/11/24 Rx (Zonegran) diazepam 5 mg tablet (Valium) 5 mg PO TID PRN muscle spasm 5 07/11/24 Unknown Rx days #15 tabs estradiol 0.0375 mg/24 hr 1 patch topical WESA 07/12/24 07/11/24 History semiweekly transdermal patch Allergy/AdvReac Type Severity Reaction Status Date / Time NSAIDS (Non-Steroidal AdvReac Severe Due to her Verified 07/12/24 10:34 Anti-Inflamma Interstitial Cystitis amitriptyline AdvReac Vomiting Verified 07/12/24 10:34 codeine AdvReac Nausea Verified 07/12/24 10:34 erythromycin base AdvReac Vomiting Verified 07/12/24 10:34 (Erythromycin Base) hydrocodone bitartrate (From AdvReac Nausea Verified 07/12/24 10:34 Vicodin) pregabalin (From Lyrica) AdvReac Other Verified 07/12/24 10:34 tramadol AdvReac Nausea/Vom/ Verified 07/12/24 10:34 Diarrhea Family History Mother Breast cancer CVA (cerebral vascular accident) Grandmother Diabetes Father Hypertension Arthritis Surgical History History of laparoscopic appendectomy History of colonoscopy History of delivery History of tonsillectomy History of salpingo-oophorectomy History of hysterectomy Social History (Updated 07/12/24 @ 11:30 by Kenyetta Bonds) household members: spouse housing: house Smoking Status: Never smoker alcohol intake: current alcohol intake frequency: holidays/special occasions only substance use type: does not use what type of physical activity do you participate in: aerobics frequency: 1-2 times per week ROS ROS Narrative General: Denies fever/chills HENT: Denies headache, denies stuffy nose, denies sore throat EYES: Denies changes in vision Resp: Denies cough, denies shortness of breath Cardiac: Right-sided chest and neck pain GI: Denies abdominal pain, denies changes in bowel, denies nausea/vomiting : Denies changes in urination Extremity: Denies swelling MSK: Denies weakness Neuro: Denies any numbness/tingling Heme: Denies any bleeding or bruising Skin: Denies rashes Psychiatric: Anxious Vital Signs Vital Signs Vital Signs: 07/12/24 10:34 07/12/24 10:34 07/12/24 12:20 Temperature 97.2 F L Temperature Source Temporal Pulse Rate 69 Pulse Rate [1 (Initial Baseline)] Pulse Rate [2] Pulse Rate [3] Pulse Rate [4] Pulse Rate [5] Pulse Rate [6] Pulse Rate [7] Pulse Rate [8] Respiratory Rate 14 Respiratory Rate [1 (Initial Baseline)] Respiratory Rate [2] Respiratory Rate [3] Respiratory Rate [4] Respiratory Rate [5] Respiratory Rate [6] Respiratory Rate [7] Respiratory Rate [8] Respiratory Effort Normal Non-Labored Blood Pressure 131/88 H Blood Pressure [1 (Initial Baseline)] Blood Pressure [2] Blood Pressure [3] Blood Pressure [4] Blood Pressure [5] Blood Pressure [6] Blood Pressure [7] Blood Pressure [8] Blood Pressure Mean 102 Baseline BP Pulse Ox 98 Oxygen Delivery Method Room Air Oxygen Delivery Method [3] Oxygen Delivery Method [4] Oxygen Delivery Method [5] Oxygen Delivery Method [6] Oxygen Delivery Method [7] Oxygen Delivery Method [8] Oxygen Flow Rate (L/min) Oxygen Flow Rate (L/min) [1 (Initial Baseline)] Oxygen Flow Rate (L/min) [2] Oxygen Flow Rate (L/min) [3] Oxygen Flow Rate (L/min) [4] Oxygen Flow Rate (L/min) [5] Oxygen Flow Rate (L/min) [6] Oxygen Flow Rate (L/min) [7] Oxygen Flow Rate (L/min) [8] EtCo2 (Normal 35-45 , high quality CPR 10-20 & ROSC>/=40mmHg 17 EtCo2 (Normal 35-45 , high quality CPR 10-20 & ROSC>/=40mmHg [1 (Initial Baseline)] EtCo2 (Normal 35-45 , high quality CPR 10-20 & ROSC>/=40mmHg [2] EtCo2 (Normal 35-45 , high quality CPR 10-20 & ROSC>/=40mmHg [3] EtCo2 (Normal 35-45 , high quality CPR 10-20 & ROSC>/=40mmHg [4] EtCo2 (Normal 35-45 , high quality CPR 10-20 & ROSC>/=40mmHg [5] EtCo2 (Normal 35-45 , high quality CPR 10-20 & ROSC>/=40mmHg [6] EtCo2 (Normal 35-45 , high quality CPR 10-20 & ROSC>/=40mmHg [7] EtCo2 (Normal 35-45 , high quality CPR 10-20 & ROSC>/=40mmHg [8] 07/12/24 12:21 07/12/24 12:22 07/12/24 13:00 Temperature 98.6 F Temperature Source Pulse Rate 71 64 Pulse Rate [1 (Initial Baseline)] 68 Pulse Rate [2] 62 Pulse Rate [3] 59 L Pulse Rate [4] 62 Pulse Rate [5] 55 L Pulse Rate [6] 66 Pulse Rate [7] 62 Pulse Rate [8] 66 Respiratory Rate 19 H 20 H Respiratory Rate [1 (Initial Baseline)] 21 H Respiratory Rate [2] 24 H Respiratory Rate [3] 13 Respiratory Rate [4] 16 Respiratory Rate [5] 22 H Respiratory Rate [6] 23 H Respiratory Rate [7] 26 H Respiratory Rate [8] 22 H Respiratory Effort Blood Pressure 159/88 H 116/75 Blood Pressure [1 (Initial Baseline)] 129/73 H Blood Pressure [2] 118/68 Blood Pressure [3] 113/73 Blood Pressure [4] 116/74 Blood Pressure [5] 116/66 Blood Pressure [6] 108/64 Blood Pressure [7] 109/67 Blood Pressure [8] 115/75 Blood Pressure Mean Baseline BP 159/88 Pulse Ox 100 100 Oxygen Delivery Method Nasal Cannula Nasal Cannula Oxygen Delivery Method [3] Nasal Cannula Oxygen Delivery Method [4] Nasal Cannula Oxygen Delivery Method [5] Nasal Cannula Oxygen Delivery Method [6] Nasal Cannula Oxygen Delivery Method [7] Nasal Cannula Oxygen Delivery Method [8] Nasal Cannula Oxygen Flow Rate (L/min) 2 2 Oxygen Flow Rate (L/min) [1 (Initial Baseline)] 2 Oxygen Flow Rate (L/min) [2] 2 Oxygen Flow Rate (L/min) [3] 2 Oxygen Flow Rate (L/min) [4] 2 Oxygen Flow Rate (L/min) [5] 2 Oxygen Flow Rate (L/min) [6] 2 Oxygen Flow Rate (L/min) [7] 2 Oxygen Flow Rate (L/min) [8] 2 EtCo2 (Normal 35-45 , high quality CPR 10-20 & ROSC>/=40mmHg 17 27 EtCo2 (Normal 35-45 , high quality CPR 10-20 & ROSC>/=40mmHg [1 (Initial Baseline)] 18 EtCo2 (Normal 35-45 , high quality CPR 10-20 & ROSC>/=40mmHg [2] 17 EtCo2 (Normal 35-45 , high quality CPR 10-20 & ROSC>/=40mmHg [3] 23 EtCo2 (Normal 35-45 , high quality CPR 10-20 & ROSC>/=40mmHg [4] 31 EtCo2 (Normal 35-45 , high quality CPR 10-20 & ROSC>/=40mmHg [5] 31 EtCo2 (Normal 35-45 , high quality CPR 10-20 & ROSC>/=40mmHg [6] 29 EtCo2 (Normal 35-45 , high quality CPR 10-20 & ROSC>/=40mmHg [7] 27 EtCo2 (Normal 35-45 , high quality CPR 10-20 & ROSC>/=40mmHg [8] 07/12/24 13:02 07/12/24 15:00 07/12/24 15:43 Temperature 98.3 F Temperature Source Pulse Rate 67 61 61 Pulse Rate [1 (Initial Baseline)] Pulse Rate [2] Pulse Rate [3] Pulse Rate [4] Pulse Rate [5] Pulse Rate [6] Pulse Rate [7] Pulse Rate [8] Respiratory Rate 15 26 H 26 H Respiratory Rate [1 (Initial Baseline)] Respiratory Rate [2] Respiratory Rate [3] Respiratory Rate [4] Respiratory Rate [5] Respiratory Rate [6] Respiratory Rate [7] Respiratory Rate [8] Respiratory Effort Blood Pressure 115/80 123/78 H Blood Pressure [1 (Initial Baseline)] Blood Pressure [2] Blood Pressure [3] Blood Pressure [4] Blood Pressure [5] Blood Pressure [6] Blood Pressure [7] Blood Pressure [8] Blood Pressure Mean 91 93 Baseline BP Pulse Ox 100 100 100 Oxygen Delivery Method Oxygen Delivery Method [3] Oxygen Delivery Method [4] Oxygen Delivery Method [5] Oxygen Delivery Method [6] Oxygen Delivery Method [7] Oxygen Delivery Method [8] Oxygen Flow Rate (L/min) Oxygen Flow Rate (L/min) [1 (Initial Baseline)] Oxygen Flow Rate (L/min) [2] Oxygen Flow Rate (L/min) [3] Oxygen Flow Rate (L/min) [4] Oxygen Flow Rate (L/min) [5] Oxygen Flow Rate (L/min) [6] Oxygen Flow Rate (L/min) [7] Oxygen Flow Rate (L/min) [8] EtCo2 (Normal 35-45 , high quality CPR 10-20 & ROSC>/=40mmHg EtCo2 (Normal 35-45 , high quality CPR 10-20 & ROSC>/=40mmHg [1 (Initial Baseline)] EtCo2 (Normal 35-45 , high quality CPR 10-20 & ROSC>/=40mmHg [2] EtCo2 (Normal 35-45 , high quality CPR 10-20 & ROSC>/=40mmHg [3] EtCo2 (Normal 35-45 , high quality CPR 10-20 & ROSC>/=40mmHg [4] EtCo2 (Normal 35-45 , high quality CPR 10-20 & ROSC>/=40mmHg [5] EtCo2 (Normal 35-45 , high quality CPR 10-20 & ROSC>/=40mmHg [6] EtCo2 (Normal 35-45 , high quality CPR 10-20 & ROSC>/=40mmHg [7] EtCo2 (Normal 35-45 , high quality CPR 10-20 & ROSC>/=40mmHg [8] Weight Weight: 49.3 kg Body Mass Index (BMI) 19.8 Physical Exam Narrative General: Alert, oriented, no apparent distress HEENT: Atraumatic, normocephalic Eyes: Anicteric, normal conjunctiva, extraocular movements grossly intact Neck: Supple Respiratory: Clear to auscultation bilaterally, slightly shallow respirations Cardiovascular: Regular rate and rhythm GI: Soft, nontender, nondistended Extremities: No edema Musculoskeletal: Moving all extremities Neuro: No overt focal neurological deficits Skin: No rashes appreciated Psych: Cooperative but does appear anxious Results Lab / Micro Data 07/12/24 12:00 07/12/24 12:00 Labs: Laboratory Results - last 24 hr 07/12/24 12:00: WBC 4.9, RBC 4.60, Hgb 14.0, Hct 41.4, MCV 90.0, MCH 30.4, MCHC 33.8, RDW Std Deviation 39.1, RDW Coeff of Toño 11.9, Plt Count 186, MPV 8.9, Immature Gran % (Auto) 0.200, Neut % (Auto) 58.4, Lymph % (Auto) 33.5, Morrill % (Auto) 5.5, Eos % (Auto) 1.4, Baso % (Auto) 1.0, Absolute Neuts (auto) 2.8, Absolute Lymphs (auto) 1.63, Nucleated RBC % 0, Sodium 138, Potassium 4.1, Chloride 106, Carbon Dioxide 22.4, Anion Gap 10, BUN 24 H, Creatinine 0.90, Estim Creat Clear Calc 60.14, Est GFR (MDRD) Non-Af 80, BUN/Creatinine Ratio 27.2 H, Glucose 90, Calcium 9.0 Imaging Radiology Impression Chest X-Ray 07/12/24 11:12 IMPRESSION: Right-sided pneumothorax, approximately 30% in volume reduction. Findings were discussed with Dr. Garcia by phone on 07/12/24 at 1144 hours. Reading Location: [facility] Chest X-Ray 07/12/24 12:40 IMPRESSION: 1. Stable pneumothorax status post chest tube placement. Reading [facility] 07/12/24 14:23 IMPRESSION: 1. Small right pneumothorax with a small caliber right-sided chest tube in place. The chest tube is noted to be kinked within the chest wall. Repositioning is recommended. Reading Location: [facility] Assessment & Plan Assessment/Plan (1) Iatrogenic pneumothorax: PLAN: Plan # Right-sided pneumothorax -Status post chest tube placement -Patient vitally stable and not hypoxic -Surgery evaluated bedside, patient okay to eat, chest x-ray in the morning -A.m. chest x-ray -Pain control -Supportive care # Anxiety -Will add Ativan as needed # History of migraines -Continue zonisamide #DVT ppx: SCDs Lisa Schwartz MD Charges/Coding Visit Charges Inpatient E&M: 68485 Init Hosp L1
[2024-07-12] MEDS: 0.9% Saline Lock 10 ML Syringe IV ×2 (17:27→18:52)
[2024-07-12] MEDS: Morphine 2 MG/ML Syringe IV (17:27)
[2024-07-12] MEDS: proCHLORPERazine 10 MG/2 ML Vial 5 MG IV (19:51)
[2024-07-12] MEDS: Lorazepam 2 MG/ML WCH Syringe 0.5 MG IV (19:51)
[2024-07-12] MEDS: ZONISAMIDE 100 MG CAPSULE PO (22:27)
[2024-07-13 03:36] VITALS: BP 97/65; PULSE 55; RESP 16; TEMP 36.3; O2SAT 100
--- NOTE | 2024-07-13 05:55 | RAD_ITS ---
PROCEDURE: CHEST 1 VIEW (PORTABLE) 07/13/2024 REASON FOR EXAM: CHEST TUBE TECHNIQUE: Frontal view of the chest. COMPARISON: 07/12/2024 FINDINGS: Interval decrease in size of the previously seen right pneumothorax currently measuring 1.1 cm at the right apex, previously 3.5 cm. A small caliber right-sided chest tube is again seen. The lungs appear clear. No pleural effusion identified. The cardiac and mediastinal contours appear within limits. The visualized osseous structures appear within limits. RAD/Chest 1 View (Portable) IMPRESSION: Interval decrease in size of the previously seen right pneumothorax currently m easuring 1.1 cm at the right apex, previously 3.5 cm. A small caliber right-sided chest tube is again seen. Reading Location: [id number]
[2024-07-13] MEDS: ZONISAMIDE 100 MG CAPSULE PO ×3 (05:59→20:13)
[2024-07-13] MEDS: Acetaminophen 500 MG Tablet 1000 MG PO ×3 (05:59→20:13)
[2024-07-13 06:38] LABS: Absolute Lymphocyte Count 1.07 X10^3/uL (0.83-4.51); Absolute Neutrophil Count 3.8 X10^3/uL (2.0-7.7); Basophil# 0.02 X10^3/uL; Basophil% 0.4 % (0-1); Eosinophil# 0.02 X10^3/uL; Eosinophils% 0.4 % (0-5); Hematocrit 38.5 % (37-47); Hemoglobin 12.8 g/dL (12.0-15.0); Lymphocyte # 1.07 X10^3/ul (0.83-4.51); Lymphocyte % 20.3 % (19-41); Mean Corp Hgb Conc 33.2 g/dL (32-36); Mean Corpuscular Hgb 30.6 pg (27.0-32.0); Mean Corpuscular Volume 92.1 fL (81-99); Mean Platelet Vol. 9.1 fl (6.2-12.0); Monocyte# 0.36 X10^3/uL; Monocyte% 6.8 % (0-10); NRBC Flagged by Analyzer 0 % (0-5); Neutrophil # 3.79 X10^3/uL (2.7-7.7); Neutrophil % 71.9 % (47-70); Platelet Count 175 K/mm3 (150-450); RBC Distribution Width CV 11.9 % (11.6-14.6); RBC Distribution Width SD 40.6 fl (35.1-43.9); Red Blood Count 4.18 M/mm3 (4.2-5.4); White Blood Count 5.3 K/mm3 (4.4-11.0)
[2024-07-13 07:39] LABS: Anion Gap 8 (5-15); BUN 19 mg/dL (4-19); BUN/Creat Ratio 24.8 RATIO (10-20); Calcium,Total 9.1 mg/dL (7.6-11.0); Carbon Dioxide 22.8 mmol/L (21.0-32.0); Chloride 107 mmol/L (98-108); Creatinine, Serum 0.78 mg/dL (0.70-1.20); EST Glomerular Filtration Rate 95 (>60); Estimated Creatinine Clearance 67.04 ml/min (50-250); Glucose 101 mg/dL (70-99); Potassium 4.4 mmol/L (3.3-5.1); Sodium Level 138 mmol/L (133-145)
--- NOTE | 2024-07-13 07:44 | PCM.PN.HOSP ---
Reason for Visit Reason for Visit: Right-sided chest pain Subjective Subjective Patient is a 49-year-old white female who presents emergency department was prehospital on 07/12/2024 for acute onset right-sided chest pain. She had been in the emergency department the day prior to presentation for neck pain and went and saw the chiropractor on the day of presentation. She received several injections of unknown substance into her right neck area and right trapezius. She reported at that time she could taste the medicine then developed acute right sided chest pain. Nothing was making it better or worse so she presented emergency department for further evaluation. Vital signs on presentation showed temperature of 97.2, heart rate 69, respiratory rate was 14, blood pressure was 131/88 and pulse ox was 98% room air. CBC was unremarkable. Chemistry panel was unremarkable. Chest x-ray showed a 30% right sided pneumothorax. Chest tube was placed in the emergency department and CT was performed following which showed small right pneumothorax with a small caliber right-sided chest tube in place. The chest tube appeared to be kinked in the chest wall and it was repositioned with repeat x-ray. General surgery was consulted and managed the chest tube throughout her hospital course. Patient states today she is having some pain at the chest tube site. She is not have any pleuritic pain or pain is consistent with the pain she was having yesterday. She is willing to go home soon as possible. Objective Data Objective Data Vital Signs: Vital Signs Temp Pulse Resp BP Pulse Ox O2 Del Method O2 Flow Rate 97.3 F L 55 L 16 97/65 100 Room Air 2 07/13/24 03:36 07/13/24 03:36 07/13/24 03:36 07/13/24 03:36 07/13/24 03:36 07/13/24 03:36 07/12/24 13:00 Oxygen Flow Rate (L/min) [8] 2 Oxygen Flow Rate (L/min) [7] 2 Oxygen Flow Rate (L/min) [6] 2 Oxygen Flow Rate (L/min) [5] 2 Oxygen Flow Rate (L/min) [4] 2 Oxygen Flow Rate (L/min) [3] 2 Oxygen Flow Rate (L/min) [2] 2 Oxygen Flow Rate (L/min) [1 ( 2 Initial Baseline)] Oxygen Flow Rate (L/min) 2 Oxygen Delivery Method [8] Nasal Cannula Oxygen Delivery Method [7] Nasal Cannula Oxygen Delivery Method [6] Nasal Cannula Oxygen Delivery Method [5] Nasal Cannula Oxygen Delivery Method [4] Nasal Cannula Oxygen Delivery Method [3] Nasal Cannula Oxygen Delivery Method Room Air Weight: 47.627 kg Body Mass Index (BMI) 19.2 Intake & Output: Intake and Output for Last 24 Hours 07/11/24 07/12/24 07/13/24 23:59 23:59 23:59 Output Total 300 / 300 0 / 0 Balance -300 / -300 0 / 0 Lab / Micro Data 07/13/24 06:13 07/13/24 06:13 Labs: Laboratory Results - last 24 hr 07/12/24 12:00: WBC 4.9, RBC 4.60, Hgb 14.0, Hct 41.4, MCV 90.0, MCH 30.4, MCHC 33.8, RDW Std Deviation 39.1, RDW Coeff of Toño 11.9, Plt Count 186, MPV 8.9, Immature Gran % (Auto) 0.200, Neut % (Auto) 58.4, Lymph % (Auto) 33.5, Kidder % (Auto) 5.5, Eos % (Auto) 1.4, Baso % (Auto) 1.0, Absolute Neuts (auto) 2.8, Absolute Lymphs (auto) 1.63, Nucleated RBC % 0, Sodium 138, Potassium 4.1, Chloride 106, Carbon Dioxide 22.4, Anion Gap 10, BUN 24 H, Creatinine 0.90, Estim Creat Clear Calc 60.14, Est GFR (MDRD) Non-Af 80, BUN/Creatinine Ratio 27.2 H, Glucose 90, Calcium 9.0 07/13/24 06:13: WBC 5.3, RBC 4.18 L, Hgb 12.8, Hct 38.5, MCV 92.1, MCH 30.6, MCHC 33.2, RDW Std Deviation 40.6, RDW Coeff of Toño 11.9, Plt Count 175, MPV 9.1, Immature Gran % (Auto) 0.200, Neut % (Auto) 71.9 H, Lymph % (Auto) 20.3, Kidder % (Auto) 6.8, Eos % (Auto) 0.4, Baso % (Auto) 0.4, Absolute Neuts (auto) 3.8, Absolute Lymphs (auto) 1.07, Nucleated RBC % 0, Sodium 138, Potassium 4.4, Chloride 107, Carbon Dioxide 22.8, Anion Gap 8, BUN 19, Creatinine 0.78, Estim Creat Clear Calc 67.04, Est GFR (MDRD) Non-Af 95, BUN/Creatinine Ratio 24.8 H, Glucose 101 H, Calcium 9.1 Radiography Diagnostic Testing: Radiology Impression Chest X-Ray 07/12/24 11:12 IMPRESSION: Right-sided pneumothorax, approximately 30% in volume reduction. Findings were discussed with Dr. Garcia by phone on 07/12/24 at 1144 hours. Reading Location: [facility] Chest X-Ray 07/12/24 12:40 IMPRESSION: 1. Stable pneumothorax status post chest tube placement. Reading Location: [facility] Chest CT 07/12/24 14:23 IMPRESSION: 1. Small right pneumothorax with a small caliber right-sided chest tube in place. The chest tube is noted to be kinked within the chest wall. Repositioning is recommended. Reading Location: [facility] Chest X-Ray 07/13/24 05:55 IMPRESSION: Interval decrease in size of the previously seen right pneumothorax currently measuring 1.1 cm at the right apex, previously 3.5 cm. A small caliber right-sided chest tube is again seen. Reading Location: [id number] Physical Exam Const alert, oriented x3 and no apparent distress Constitutional Narrative: Thin, anxious appearing, middle-aged, white female, sitting up in bed, significant other at the bedside, watching television HEENT head/scalp atraumatic and moist oral mucous membranes Head and Scalp: normocephalic Resp normal respiratory effort, no retractions, no use of accessory muscles and clear to auscultation bilaterally Auscultation: Negative for rales, rhonchi or wheezes Cardio regular rate, regular rhythm, S1 normal heart sound, S2 normal heart sound, no murmurs, no rub, no gallops and no clicks GI normal to inspection, nondistended, normoactive bowel sounds, soft to palpation and non-tender GI Narrative: Scaphoid abdomen Extremity no clubbing, cyanosis or edema Extremity Narrative: Pedal and radial pulses are 2+ Neuro moves all extremities and no focal motor deficits Speech: speech normal Psych Psych Narrative: Affect is flat, patient seems fairly anxious Assessment & Plan Assessment/Plan (1) Iatrogenic pneumothorax: PLAN: Plan Right sided pneumothorax -Status post chest tube placement with readjustment today -General Surgery remaining chest tube -Currently does not seem to have an air leak -Hopeful for tube clamping tomorrow and potential discontinuation of chest tube with potential discharge -Continue to monitor clinically Anxiety -Continue as needed Ativan History of migraines -Continue zonisamide DVT prophylaxis -Continue SCDs CODE STATUS -Full code Charges/Coding Visit Charges Inpatient E&M: 24941 Subs Hosp L1
[2024-07-13 08:06] VITALS: BP 101/65; PULSE 68; RESP 18; TEMP 36.4; O2SAT 100
--- NOTE | 2024-07-13 09:30 | CASEMGMT ---
RN CM Face to Face with patient for initial transition planning/care coordination assessment. RN CM introduced self and role at [facility]. Patient lying in bed, alert and oriented, at bedside. Patient willing to participate in assessment and is able to answer all questions appropriately. Care providers, pharmacy, and demographics verified. Strata: 1 PCP: Vannessa Specialists: JENNY Abarca Preferred Pharmacy:[facility] Insurance: [employer] Prescription Benefit: yes Living Will/HPOA: none LNOK: Living Arrangements: Patient lives with in a single story home with 2 steps and railing to enter the home. Patient is independent at home. Transportation: self, DME/HHC: Patient denies DME in the home. No previous HHC or SNF. Patient wishes to discharge home, denies need for home health at this time. Patient states she has no further needs or concerns at this time. CM to follow for discharge planning needs that may arise. Disposition Plan: Patient to discharge home with family support and follow-up plans in place. Hilda MEDINA, RN, CM
--- NOTE | 2024-07-13 10:45 | RAD_ITS ---
PROCEDURE: CHEST 1 VIEW (PORTABLE); CHEST 1 VIEW 07/13/2024 REASON FOR EXAM: PNEUMO; LINE CHANGE; PNEUMOTHORAX TECHNIQUE: Multiple frontal views of the chest were performed. COMPARISON: 07/13/2024; 07/12/2024 FINDINGS: Multiple frontal views of the chest demonstrate manipulation of the existing small caliber right-sided chest tube with a wire. There is a persistent small right apical pneumothorax measuring 1.2 cm on the final image. RAD/Chest 1 View IMPRESSION: 1. Multiple frontal chest radiographs demonstrating wire manipulation of the ex isting right chest tube. 2. Small apical right pneumothorax persists measuring 1.2 cm. Reading Location: [facility]
--- NOTE | 2024-07-13 10:46 | RAD_ITS ---
PROCEDURE: CHEST 1 VIEW (PORTABLE); CHEST 1 VIEW 07/13/2024 REASON FOR EXAM: PNEUMO; LINE CHANGE; PNEUMOTHORAX TECHNIQUE: Multiple frontal views of the chest were performed. COMPARISON: 07/13/2024; 07/12/2024 FINDINGS: Multiple frontal views of the chest demonstrate manipulation of the existing small caliber right-sided chest tube with a wire. There is a persistent small right apical pneumothorax measuring 1.2 cm on the final image. RAD/Chest 1 View IMPRESSION: 1. Multiple frontal chest radiographs demonstrating wire manipulation of the ex isting right chest tube. 2. Small apical right pneumothorax persists measuring 1.2 cm. Reading Location: [facility]
--- NOTE | 2024-07-13 10:54 | PN.SURG_ITS ---
Subjective Subjective Patient's morning chest x-ray does still have a pneumothorax, right chest tube is fissured. Objective Data Objective Data Vital Signs: Vital Signs Temp Pulse Resp BP Pulse Ox O2 Del Method O2 Flow Rate 97.5 F L 68 18 101/65 100 Room Air 2 07/13/24 08:06 07/13/24 08:06 07/13/24 08:06 07/13/24 08:06 07/13/24 08:06 07/13/24 09:57 07/12/24 13:00 Oxygen Flow Rate (L/min) [8] 2 Oxygen Flow Rate (L/min) [7] 2 Oxygen Flow Rate (L/min) [6] 2 Oxygen Flow Rate (L/min) [5] 2 Oxygen Flow Rate (L/min) [4] 2 Oxygen Flow Rate (L/min) [3] 2 Oxygen Flow Rate (L/min) [2] 2 Oxygen Flow Rate (L/min) [1 ( 2 Initial Baseline)] Oxygen Flow Rate (L/min) 2 Oxygen Delivery Method [8] Nasal Cannula Oxygen Delivery Method [7] Nasal Cannula Oxygen Delivery Method [6] Nasal Cannula Oxygen Delivery Method [5] Nasal Cannula Oxygen Delivery Method [4] Nasal Cannula Oxygen Delivery Method [3] Nasal Cannula Oxygen Delivery Method Room Air Weight: 105 lb Body Mass Index (BMI) 19.2 Intake & Output: Intake and Output for Last 24 Hours 07/11/24 07/12/24 07/13/24 23:59 23:59 23:59 Output Total 300 / 300 0 / 0 Balance -300 / -300 0 / 0 Lab / Micro Data 07/13/24 06:13 07/13/24 06:13 Labs: Laboratory Results - last 24 hr 07/12/24 12:00: WBC 4.9, RBC 4.60, Hgb 14.0, Hct 41.4, MCV 90.0, MCH 30.4, MCHC 33.8, RDW Std Deviation 39.1, RDW Coeff of Toño 11.9, Plt Count 186, MPV 8.9, Immature Gran % (Auto) 0.200, Neut % (Auto) 58.4, Lymph % (Auto) 33.5, Pitkin % (Auto) 5.5, Eos % (Auto) 1.4, Baso % (Auto) 1.0, Absolute Neuts (auto) 2.8, Absolute Lymphs (auto) 1.63, Nucleated RBC % 0, Sodium 138, Potassium 4.1, Chloride 106, Carbon Dioxide 22.4, Anion Gap 10, BUN 24 H, Creatinine 0.90, Estim Creat Clear Calc 60.14, Est GFR (MDRD) Non-Af 80, BUN/Creatinine Ratio 27.2 H, Glucose 90, Calcium 9.0 07/13/24 06:13: WBC 5.3, RBC 4.18 L, Hgb 12.8, Hct 38.5, MCV 92.1, MCH 30.6, MCHC 33.2, RDW Std Deviation 40.6, RDW Coeff of Toño 11.9, Plt Count 175, MPV 9.1, Immature Gran % (Auto) 0.200, Neut % (Auto) 71.9 H, Lymph % (Auto) 20.3, Pitkin % (Auto) 6.8, Eos % (Auto) 0.4, Baso % (Auto) 0.4, Absolute Neuts (auto) 3.8, Absolute Lymphs (auto) 1.07, Nucleated RBC % 0, Sodium 138, Potassium 4.4, Chloride 107, Carbon Dioxide 22.8, Anion Gap 8, BUN 19, Creatinine 0.78, Estim Creat Clear Calc 67.04, Est GFR (MDRD) Non-Af 95, BUN/Creatinine Ratio 24.8 H, G lucose 101 H, Calcium 9.1 Radiography Diagnostic Testing: Radiology Impression Chest X-Ray 07/12/24 11:12 IMPRESSION: Right-sided pneumothorax, approximately 30% in volume reduction. Findings were discussed with Dr. Garcia by phone on 07/12/24 at 1144 hours. Reading Location: [facility] Chest X-Ray 07/12/24 12:40 IMPRESSION: 1. Stable pneumothorax status post chest tube placement. Reading [facility] 07/12/24 14:23 IMPRESSION: 1. Small right pneumothorax with a small caliber right-sided chest tube in place. The chest tube is noted to be kinked within the chest wall. Repositioning is recommended. Reading Location: [facility] Chest X-Ray 07/13/24 05:55 IMPRESSION: Interval decrease in size of the previously seen right pneumothorax currently measuring 1.1 cm at the right apex, previously 3.5 cm. A small caliber right-sided chest tube is again seen. Reading Location: [facility] Physical Exam Const oriented x3 and no apparent distress Resp normal respiratory effort Resp Narrative: Right chest tube in place to Pleur-evac at -20 occasional leak Cardio regular rate Assessment & Plan Assessment/Plan (1) Iatrogenic pneumothorax: PLAN: Plan Will plan to exchange the percutaneous chest tube over a wire for about a location to evacuate the pneumothorax. Patient is agreeable with plan. Makeda Engel M.D. Pager: [phone] [facility] [address] [place] [address], [facility], [address] [place] [id number] Office: [phone] Charges/Coding Visit Charges Inpatient E&M: 58460 Subs Hosp L2
--- NOTE | 2024-07-13 11:25 | RAD_ITS ---
PROCEDURE: CHEST 1 VIEW (PORTABLE); CHEST 1 VIEW 07/13/2024 REASON FOR EXAM: PNEUMO; LINE CHANGE; PNEUMOTHORAX TECHNIQUE: Multiple frontal views of the chest were performed. COMPARISON: 07/13/2024; 07/12/2024 FINDINGS: Multiple frontal views of the chest demonstrate manipulation of the existing small caliber right-sided chest tube with a wire. There is a persistent small right apical pneumothorax measuring 1.2 cm on the final image. RAD/Chest 1 View (Portable) IMPRESSION: 1. Multiple frontal chest radiographs demonstrating wire manipulation of the ex isting right chest tube. 2. Small apical right pneumothorax persists measuring 1.2 cm. Reading Location: [facility]
--- NOTE | 2024-07-13 11:26 | RAD_ITS ---
PROCEDURE: CHEST 1 VIEW (PORTABLE); CHEST 1 VIEW 07/13/2024 REASON FOR EXAM: PNEUMO; LINE CHANGE; PNEUMOTHORAX TECHNIQUE: Multiple frontal views of the chest were performed. COMPARISON: 07/13/2024; 07/12/2024 FINDINGS: Multiple frontal views of the chest demonstrate manipulation of the existing small caliber right-sided chest tube with a wire. There is a persistent small right apical pneumothorax measuring 1.2 cm on the final image. RAD/Chest 1 View (Portable) IMPRESSION: 1. Multiple frontal chest radiographs demonstrating wire manipulation of the ex isting right chest tube. 2. Small apical right pneumothorax persists measuring 1.2 cm. Reading Location: [facility]
--- NOTE | 2024-07-13 11:27 | RAD_ITS ---
PROCEDURE: CHEST 1 VIEW (PORTABLE); CHEST 1 VIEW 07/13/2024 REASON FOR EXAM: PNEUMO; LINE CHANGE; PNEUMOTHORAX TECHNIQUE: Multiple frontal views of the chest were performed. COMPARISON: 07/13/2024; 07/12/2024 FINDINGS: Multiple frontal views of the chest demonstrate manipulation of the existing small caliber right-sided chest tube with a wire. There is a persistent small right apical pneumothorax measuring 1.2 cm on the final image. RAD/Chest 1 View (Portable) IMPRESSION: 1. Multiple frontal chest radiographs demonstrating wire manipulation of the ex isting right chest tube. 2. Small apical right pneumothorax persists measuring 1.2 cm. Reading Location: [facility]
--- NOTE | 2024-07-13 11:27 | RAD_ITS ---
PROCEDURE: CHEST 1 VIEW (PORTABLE); CHEST 1 VIEW 07/13/2024 REASON FOR EXAM: PNEUMO; LINE CHANGE; PNEUMOTHORAX TECHNIQUE: Multiple frontal views of the chest were performed. COMPARISON: 07/13/2024; 07/12/2024 FINDINGS: Multiple frontal views of the chest demonstrate manipulation of the existing small caliber right-sided chest tube with a wire. There is a persistent small right apical pneumothorax measuring 1.2 cm on the final image. RAD/Chest 1 View (Portable) IMPRESSION: 1. Multiple frontal chest radiographs demonstrating wire manipulation of the ex isting right chest tube. 2. Small apical right pneumothorax persists measuring 1.2 cm. Reading Location: [facility]
--- NOTE | 2024-07-13 11:28 | RAD_ITS ---
PROCEDURE: CHEST 1 VIEW (PORTABLE); CHEST 1 VIEW 07/13/2024 REASON FOR EXAM: PNEUMO; LINE CHANGE; PNEUMOTHORAX TECHNIQUE: Multiple frontal views of the chest were performed. COMPARISON: 07/13/2024; 07/12/2024 FINDINGS: Multiple frontal views of the chest demonstrate manipulation of the existing small caliber right-sided chest tube with a wire. There is a persistent small right apical pneumothorax measuring 1.2 cm on the final image. RAD/Chest 1 View (Portable) IMPRESSION: 1. Multiple frontal chest radiographs demonstrating wire manipulation of the ex isting right chest tube. 2. Small apical right pneumothorax persists measuring 1.2 cm. Reading Location: [facility]
--- NOTE | 2024-07-13 11:28 | RAD_ITS ---
PROCEDURE: CHEST 1 VIEW (PORTABLE); CHEST 1 VIEW 07/13/2024 REASON FOR EXAM: PNEUMO; LINE CHANGE; PNEUMOTHORAX TECHNIQUE: Multiple frontal views of the chest were performed. COMPARISON: 07/13/2024; 07/12/2024 FINDINGS: Multiple frontal views of the chest demonstrate manipulation of the existing small caliber right-sided chest tube with a wire. There is a persistent small right apical pneumothorax measuring 1.2 cm on the final image. RAD/Chest 1 View (Portable) IMPRESSION: 1. Multiple frontal chest radiographs demonstrating wire manipulation of the ex isting right chest tube. 2. Small apical right pneumothorax persists measuring 1.2 cm. Reading Location: [facility]
--- NOTE | 2024-07-13 11:37 | PCM.OPRPT ---
Operative Report (Standard) Operative Information Date of Procedure: 07/13/24 Pre-Operative Diagnosis: Right pneumothorax, iatrogenic Post-Operative Diagnosis: Same Surgery/Procedure Performed: Exchange of percutaneous right chest tube over a Glidewire instructor of nursing: No Type of Anesthesia: Local Procedure Start Time: 10:30 Procedure Stop Time: 11:00 Select all DRAINS/GRAFTS/IMPLANTS that apply: Drains Drain details: 8 Indian percutaneous chest tube Estimated Blood Loss: < 5 cc Specimen collected: No Description of surgery: Indications: Patient's percutaneous chest tube noted to be fissured and still had a pneumothorax. Plan to exchange over a Glidewire for better placement of the percutaneous chest tube. Right lateral chest was prepped draped in usual sterile fashion chlorhexidine. Local anesthesia of 1% lidocaine was infiltrated at the exit site of the percutaneous chest tube. A Glidewire was placed through the current percutaneous chest tube as it was pulled out to allow the glidewire to go posterior and superior. Portable x-ray was present and did take several x-rays to ensure direction of wire prior to placing a new percutaneous chest tube over the wire. New chest tube was hooked back up to the Pleur-evac did have bubbling/leak that did stop after a few seconds. This was sutured in placed with 3-0 silk suture and Vaseline gauze was placed at the exit site along with 4 x 4's and tape. Patient tolerated procedure well. Surgical Findings: See operative report Complications Complications: No
[2024-07-13 11:39] VITALS: BP 114/66; PULSE 65; RESP 20; TEMP 36.6; O2SAT 100
[2024-07-13] MEDS: LORazepam 0.5 MG Tablet PO ×2 (11:40→20:27)
[2024-07-13 16:50] VITALS: BP 109/49; PULSE 69; RESP 18; TEMP 36.3; O2SAT 100
[2024-07-13 20:09] VITALS: O2SAT 95
[2024-07-13 20:10] VITALS: BP 105/62; PULSE 69; RESP 16; TEMP 36.4; O2SAT 98
[2024-07-13] MEDS: 0.9% Saline Lock 10 ML Syringe IV (20:28)
[2024-07-14 03:20] VITALS: BP 94/67; PULSE 60; RESP 16; TEMP 36.5; O2SAT 98
--- NOTE | 2024-07-14 04:35 | RAD_ITS ---
PROCEDURE: CHEST 1 VIEW (PORTABLE) 07/14/2024 REASON FOR EXAM: CHEST TUBE TECHNIQUE: Frontal view of the chest. COMPARISON: 07/13/2024 FINDINGS: Interval decrease in small right pneumothorax currently measuring 9 mm at the apex. Small caliber right-sided chest tube again seen. The lungs otherwise appear clear. The cardiac and mediastinal contours appear within limits. Overlapping telemetry wires. RAD/Chest 1 View (Portable) IMPRESSION: Interval decrease in small right pneumothorax currently measuring 9 mm at the a pex. Small caliber right-sided chest tube again seen. Reading Location: [id number]
[2024-07-14] MEDS: ZONISAMIDE 100 MG CAPSULE PO ×3 (05:14→20:50)
[2024-07-14] MEDS: Acetaminophen 500 MG Tablet 1000 MG PO ×3 (05:14→20:50)
[2024-07-14 08:33] VITALS: BP 116/74; PULSE 63; RESP 16; TEMP 36.4; O2SAT 100
--- NOTE | 2024-07-14 08:47 | PN.SURG_ITS ---
Subjective Subjective Patient had repositioning of chest tube yesterday. Patient still has an apical pneumo which is 9 mm. Objective Data Objective Data Vital Signs: Vital Signs Temp Pulse Resp BP Pulse Ox O2 Del Method O2 Flow Rate 97.6 F L 63 16 116/74 100 Room Air 2 07/14/24 08:33 07/14/24 08:33 07/14/24 08:33 07/14/24 08:33 07/14/24 08:33 07/14/24 08:33 07/12/24 13:00 Oxygen Flow Rate (L/min) [8] 2 Oxygen Flow Rate (L/min) [7] 2 Oxygen Flow Rate (L/min) [6] 2 Oxygen Flow Rate (L/min) [5] 2 Oxygen Flow Rate (L/min) [4] 2 Oxygen Flow Rate (L/min) [3] 2 Oxygen Flow Rate (L/min) [2] 2 Oxygen Flow Rate (L/min) [1 ( 2 Initial Baseline)] Oxygen Flow Rate (L/min) 2 Oxygen Delivery Method [8] Nasal Cannula Oxygen Delivery Method [7] Nasal Cannula Oxygen Delivery Method [6] Nasal Cannula Oxygen Delivery Method [5] Nasal Cannula Oxygen Delivery Method [4] Nasal Cannula Oxygen Delivery Method [3] Nasal Cannula Oxygen Delivery Method Room Air Weight: 105 lb Body Mass Index (BMI) 19.2 Intake & Output: Intake and Output for Last 24 Hours 07/12/24 07/13/24 07/14/24 23:59 23:59 23:59 Intake Total 480 / 480 Output Total 300 / 300 0 / 0 Balance -300 / -300 480 / 480 Lab / Micro Data 07/13/24 06:13 07/13/24 06:13 Radiography Diagnostic Testing: Radiology Impression Chest X-Ray 07/13/24 10:45 IMPRESSION: 1. Multiple frontal chest radiographs demonstrating wire manipulation of the existing right chest tube. 2. Small apical right pneumothorax persists measuring 1.2 cm. Reading Location: [facility] Chest X-Ray 07/13/24 10:46 IMPRESSION: 1. Multiple frontal chest radiographs demonstrating wire manipulation of the existing right chest tube. 2. Small apical right pneumothorax persists measuring 1.2 cm. Reading Location: [facility] Chest X-Ray 07/13/24 11:25 IMPRESSION: 1. Multiple frontal chest radiographs demonstrating wire manipulation of the existing right chest tube. 2. Small apical right pneumothorax persists measuring 1.2 cm. Reading Location: [facility] Chest X-Ray 07/13/24 11:26 IMPRESSION: 1. Multiple frontal chest radiographs demonstrating wire manipulation of the existing right chest tube. 2. Small apical right pneumothorax persists measuring 1.2 cm. Reading Location: [facility] Chest X-Ray 07/13/24 11:27 IMPRESSION: 1. Multiple frontal chest radiographs demonstrating wire manipulation of the existing right chest tube. 2. Small apical right pneumothorax persists measuring 1.2 cm. Reading Location: [facility] Chest X-Ray 07/13/24 11:27 IMPRESSION: 1. Multiple frontal chest radiographs demonstrating wire manipulation of the existing right chest tube. 2. Small apical right pneumothorax persists measuring 1.2 cm. Reading Location: [facility] Chest X-Ray 07/13/24 11:28 IMPRESSION: 1. Multiple frontal chest radiographs demonstrating wire manipulation of the existing right chest tube. 2. Small apical right pneumothorax persists measuring 1.2 cm. Reading Location: [facility] Chest X-Ray 07/13/24 11:28 IMPRESSION: 1. Multiple frontal chest radiographs demonstrating wire manipulation of the existing right chest tube. 2. Small apical right pneumothorax persists measuring 1.2 cm. Reading Location: [facility] Chest X-Ray 07/14/24 04:35 IMPRESSION: Interval decrease in small right pneumothorax currently measuring 9 mm at the apex. Small caliber right-sided chest tube again seen. Reading Location: [facility] Physical Exam Const oriented x3 and no apparent distress Resp normal respiratory effort GI soft to palpation and non-tender Assessment & Plan Assessment/Plan (1) Iatrogenic pneumothorax: PLAN: The patient had a repositioning of her chest tube yesterday and the day before. She still has a fissure chest tube with no air leak and the pneumo was 9 mm. Given the fact that the pneumothorax did not grow it is likely sealed. It is very hard to reach the apex to remove the air. If the pneumothorax does not grow with the fissure chest tube it is likely sealed and I will remove the chest tube tomorrow and send her home. Repeat chest x-ray this afternoon and again tomorrow morning. Enrique Tracy MD Pager: [facility] [address] [place] [address], [address] [place] [phone] Office:
--- NOTE | 2024-07-14 09:05 | PCM.PN.HOSP ---
Reason for Visit Reason for Visit: Iatrogenic pneumothorax Subjective Subjective Patient tearful. Wanting to go home. Pneumothorax is about 5% at this time. Per discussion with general surgery plan is for discharge tomorrow chest x-ray is stable. Objective Data Objective Data Vital Signs: Vital Signs Temp Pulse Resp BP Pulse Ox O2 Del Method O2 Flow Rate 97.6 F L 63 16 116/74 100 Room Air 2 07/14/24 08:33 07/14/24 08:33 07/14/24 08:33 07/14/24 08:33 07/14/24 08:33 07/14/24 08:33 07/12/24 13:00 Oxygen Flow Rate (L/min) [8] 2 Oxygen Flow Rate (L/min) [7] 2 Oxygen Flow Rate (L/min) [6] 2 Oxygen Flow Rate (L/min) [5] 2 Oxygen Flow Rate (L/min) [4] 2 Oxygen Flow Rate (L/min) [3] 2 Oxygen Flow Rate (L/min) [2] 2 Oxygen Flow Rate (L/min) [1 ( 2 Initial Baseline)] Oxygen Flow Rate (L/min) 2 Oxygen Delivery Method [8] Nasal Cannula Oxygen Delivery Method [7] Nasal Cannula Oxygen Delivery Method [6] Nasal Cannula Oxygen Delivery Method [5] Nasal Cannula Oxygen Delivery Method [4] Nasal Cannula Oxygen Delivery Method [3] Nasal Cannula Oxygen Delivery Method Room Air Weight: 47.627 kg Body Mass Index (BMI) 19.2 Intake & Output: Intake and Output for Last 24 Hours 07/12/24 07/13/24 07/14/24 23:59 23:59 23:59 Intake Total 480 / 480 Output Total 300 / 300 0 / 0 Balance -300 / -300 480 / 480 Lab / Micro Data 07/13/24 06:13 07/13/24 06:13 Radiography Diagnostic Testing: Radiology Impression Chest X-Ray 07/13/24 10:45 IMPRESSION: 1. Multiple frontal chest radiographs demonstrating wire manipulation of the existing right chest tube. 2. Small apical right pneumothorax persists measuring 1.2 cm. Reading Location: [facility] Chest X-Ray 07/13/24 10:46 IMPRESSION: 1. Multiple frontal chest radiographs demonstrating wire manipulation of the existing right chest tube. 2. Small apical right pneumothorax persists measuring 1.2 cm. Reading Location: [facility] Chest X-Ray 07/13/24 11:25 IMPRESSION: 1. Multiple frontal chest radiographs demonstrating wire manipulation of the existing right chest tube. 2. Small apical right pneumothorax persists measuring 1.2 cm. Reading Location: [facility] Chest X-Ray 07/13/24 11:26 IMPRESSION: 1. Multiple frontal chest radiographs demonstrating wire manipulation of the existing right chest tube. 2. Small apical right pneumothorax persists measuring 1.2 cm. Reading Location: [facility] Chest X-Ray 07/13/24 11:27 IMPRESSION: 1. Multiple frontal chest radiographs demonstrating wire manipulation of the existing right chest tube. 2. Small apical right pneumothorax persists measuring 1.2 cm. Reading Location: [facility] Chest X-Ray 07/13/24 11:27 IMPRESSION: 1. Multiple frontal chest radiographs demonstrating wire manipulation of the existing right chest tube. 2. Small apical right pneumothorax persists measuring 1.2 cm. Reading Location: [facility] Chest X-Ray 07/13/24 11:28 IMPRESSION: 1. Multiple frontal chest radiographs demonstrating wire manipulation of the existing right chest tube. 2. Small apical right pneumothorax persists measuring 1.2 cm. Reading Location: [facility] Chest X-Ray 07/13/24 11:28 IMPRESSION: 1. Multiple frontal chest radiographs demonstrating wire manipulation of the existing right chest tube. 2. Small apical right pneumothorax persists measuring 1.2 cm. Reading Location: [facility] Chest X-Ray 07/14/24 04:35 IMPRESSION: Interval decrease in small right pneumothorax currently measuring 9 mm at the apex. Small caliber right-sided chest tube again seen. Reading Location: [facility] Physical Exam Const alert, oriented x3 and no apparent distress Constitutional Narrative: Thin, anxious appearing, middle-aged, white female, sitting up in bed, multiple family members at the bedside, watching television HEENT head/scalp atraumatic Head and Scalp: normocephalic Resp Auscultation: Negative for rales, rhonchi or wheezes GI GI Narrative: Scaphoid abdomen Psych Psych Narrative: Affect is flat, patient remains anxious and almost tearful at times Assessment & Plan Assessment/Plan (1) Iatrogenic pneumothorax: PLAN: Plan Right sided pneumothorax -Patient with right-sided chest tube in about 5% persistent pneumo -No airleak noted -Per discussion with general surgery plan is for x-ray this evening and again in the morning and if stable removal of chest tube and discharge home tomorrow -Continue to monitor clinically Anxiety -Continue as needed Ativan History of migraines -Continue zonisamide DVT prophylaxis -Continue SCDs CODE STATUS -Full code Charges/Coding Visit Charges Inpatient E&M: 44809 Subs Hosp L1
[2024-07-14 10:57] VITALS: O2SAT 100
[2024-07-14 13:22] VITALS: BP 106/62; PULSE 74; RESP 14; TEMP 37; O2SAT 100
--- NOTE | 2024-07-14 15:00 | RAD_ITS ---
PROCEDURE: CHEST 1 VIEW (PORTABLE) 07/14/2024 REASON FOR EXAM: PNEUMOTHORAX TECHNIQUE: Frontal view of the chest. COMPARISON: Chest radiograph 07/14/2024 earlier today FINDINGS: Hardware: Small caliber chest tube is seen lower right hemithorax. Heart: Normal heart size Lungs: Lungs are clear. Bones: Unremarkable Other: Residual small apical right pneumothorax remains. RAD/Chest 1 View (Portable) IMPRESSION: Residual small right apical pneumothorax with right chest tube in satisfactory position . [facility]
--- NOTE | 2024-07-14 16:15 | RAD_ITS ---
PROCEDURE: CHEST 1 VIEW (PORTABLE) 07/14/2024 REASON FOR EXAM: 49-year-old female, CHEST TUBE TO WATER SEAL, HAVING CHEST PAIN TECHNIQUE: Frontal view of the chest. COMPARISON: Chest radiograph earlier same day at 3 p.m. FINDINGS: Hardware: Stable small caliber right-sided chest tube. Heart: Cardiac and mediastinal contours are stable. Lungs: Stable small right pneumothorax. No pleural effusion or focal consolidation. Bones: The bones are unremarkable. Other: The visualized upper abdominal loops are normal caliber. RAD/Chest 1 View (Portable) IMPRESSION: Stable right pneumothorax with chest tube in place. Reading Location: [id number]
[2024-07-14 20:48] VITALS: BP 110/65; PULSE 79; RESP 16; TEMP 36.5; O2SAT 100
[2024-07-14] MEDS: LORazepam 0.5 MG Tablet PO (20:50)
--- NOTE | 2024-07-14 22:36 | RAD_ITS ---
PROCEDURE: CHEST 1 VIEW (PORTABLE) 07/14/2024 REASON FOR EXAM: CHEST TUBE ADJUSTMENT/PNEUMOTHORAX TECHNIQUE: Frontal view of the chest. COMPARISON: Multiple priors FINDINGS: Small right-sided pneumothorax which has slightly decreased in size from the prior exam with a 3.2 cm apical gap. The right-sided chest tube is again noted. No pleural effusion. The lungs are clear. The cardiomediastinal silhouette is unremarkable. No acute osseous or soft tissue abnormality. RAD/Chest 1 View (Portable) IMPRESSION: Slightly improved right pneumothorax with a right-sided chest tube in place. Reading Location: [facility]
[2024-07-14] MEDS: Lorazepam 2 MG/ML WCH Syringe 0.5 MG IV (22:55)
--- NOTE | 2024-07-14 23:10 | RAD_ITS ---
PROCEDURE: CHEST 1 VIEW (PORTABLE) 07/14/2024 REASON FOR EXAM: CHEST TUBE PLACEMENT TECHNIQUE: Frontal view of the chest. COMPARISON: 07/14/2024 FINDINGS: Interval placement of a 2nd right-sided small caliber chest tube, which appears to be in satisfactory position. Resolution of the right-sided pneumothorax. Cardiomediastinal silhouette is unremarkable. The lungs are clear. RAD/Chest 1 View (Portable) IMPRESSION: 1. Resolution of the right-sided pneumothorax status post placement of a 2nd ri ght-sided small caliber chest tube. Reading Location: [facility]
[2024-07-14 23:19] VITALS: BP 118/72; PULSE 64; RESP 16; TEMP 36.6; O2SAT 100
--- NOTE | 2024-07-14 23:32 | PCM.PN.BLA ---
Progress Note Patient was found to have a larger pneumothorax than previously thought and she was placed back to suction. There was a large wong of air. Chest x-ray revealed that there is still an apical pneumo and then the chest tube was fissured. At this point I consented the patient for a new percutaneous chest tube higher up by about 3 rib spaces. Patient consented for the procedure after hearing the risks of bleeding, infection, injury to the lung. She was given a dose of IV Ativan that was previously ordered. The right chest tube was placed and there was a large wong of air again and repeat chest x-ray showed full inflation of the lung with a chest tube in adequate position. I will leave this chest tube to suction overnight. Two-view chest x-ray in the morning. She does have a slow air leak.
--- NOTE | 2024-07-14 23:33 | OP.PCM_ITS ---
Operative Report (Standard) Operative Information Date of Procedure: 07/14/24 Pre-Operative Diagnosis: Uncontrolled right pneumothorax Post-Operative Diagnosis: Same Surgery/Procedure Performed: Right percutaneous chest tube placement senior it architect: No Type of Anesthesia: Local Procedure Start Time: 23:10 Procedure Stop Time: 23:20 Select all DRAINS/GRAFTS/IMPLANTS that apply: Drains Drain details: Percutaneous chest tube Estimated Blood Loss: 2 Specimen collected: No Description of surgery: The right chest was prepped and draped in usual sterile fashion. An area 3 finger lengths up from the last drain was chosen and injected with local a nesthetic. A small rené was made with a scalpel. The needle was placed into the chest until air was aspirated and then the catheter was slid into the chest over the introducer. The introducer was removed and the catheter was placed to suction. There was a wong of air. The patient has slow air leak. Chest x-ray was obtained and the chest tube is in adequate position. The pneumothorax seems to have fully resolved with the new tube placement. Surgical Findings: Right pneumothorax Complications Complications: No
[2024-07-15] MEDS: Morphine 2 MG/ML Syringe IV ×4 (00:27→20:38)
[2024-07-15] MEDS: proCHLORPERazine 10 MG/2 ML Vial 5 MG IV ×4 (00:27→20:38)
[2024-07-15] MEDS: Acetaminophen 500 MG Tablet 1000 MG PO ×2 (05:18→20:37)
[2024-07-15] MEDS: ZONISAMIDE 100 MG CAPSULE PO ×2 (05:18→20:37)
--- NOTE | 2024-07-15 07:34 | RAD_ITS ---
PROCEDURE: CHEST 1 VIEW (PORTABLE) 07/15/2024 REASON FOR EXAM: Pneumothorax follow-up. Assess position of 2 right chest tubes pneumo TECHNIQUE: Frontal view of the chest. COMPARISON: Chest radiograph yesterday FINDINGS: Hardware: 2 small caliber right chest tube in place. Heart: Normal size. Lungs: The lungs appear inflated. Perhaps there is a small residual right pneumothorax Bones: Unremarkable Other: RAD/Chest 1 View (Portable) IMPRESSION: Near complete resolution of right pneumothorax with 2 small caliber chest tubes in place. Reading [facility]
--- NOTE | 2024-07-15 08:45 | PCM.PN.HOSP ---
Reason for Visit Reason for Visit: Iatrogenic pneumothorax Subjective Subjective Chest x-ray history afternoon showed enlarged pneumothorax so a second tube was put in. Unfortunately large bore tube had to be put in this morning. Patient's only complaint currently is pain with a chest tube is in frustration in fact she cannot go home. Objective Data Objective Data Vital Signs: Vital Signs Temp Pulse Resp BP Pulse Ox O2 Del Method O2 Flow Rate 97.8 F 64 16 118/72 100 Room Air 2 07/14/24 23:19 07/14/24 23:19 07/14/24 23:19 07/14/24 23:19 07/14/24 23:19 07/14/24 23:19 07/12/24 13:00 Oxygen Flow Rate (L/min) [8] 2 Oxygen Flow Rate (L/min) [7] 2 Oxygen Flow Rate (L/min) [6] 2 Oxygen Flow Rate (L/min) [5] 2 Oxygen Flow Rate (L/min) [4] 2 Oxygen Flow Rate (L/min) [3] 2 Oxygen Flow Rate (L/min) [2] 2 Oxygen Flow Rate (L/min) [1 ( 2 Initial Baseline)] Oxygen Flow Rate (L/min) 2 Oxygen Delivery Method [8] Nasal Cannula Oxygen Delivery Method [7] Nasal Cannula Oxygen Delivery Method [6] Nasal Cannula Oxygen Delivery Method [5] Nasal Cannula Oxygen Delivery Method [4] Nasal Cannula Oxygen Delivery Method [3] Nasal Cannula Oxygen Delivery Method Room Air Weight: 47.627 kg Body Mass Index (BMI) 19.2 Intake & Output: Intake and Output for Last 24 Hours 07/13/24 07/14/24 07/15/24 23:59 23:59 23:59 Intake Total 480 / 480 700 / 700 Output Total 0 / 0 Balance 480 / 480 700 / 700 Lab / Micro Data 07/13/24 06:13 07/13/24 06:13 Radiography Diagnostic Testing: Radiology Impression Chest X-Ray 07/14/24 15:00 IMPRESSION: Residual small right apical pneumothorax with right chest tube in satisfactory position . Reading Location: [facility] Chest X-Ray 07/14/24 16:15 IMPRESSION: Stable right pneumothorax with chest tube in place. Reading Location: [facility] Chest X-Ray 07/14/24 22:36 IMPRESSION: Slightly improved right pneumothorax with a right-sided chest tube in place. Reading Location: [facility] Chest X-Ray 07/14/24 23:10 IMPRESSION: 1. Resolution of the right-sided pneumothorax status post placement of a 2nd right-sided small caliber chest tube. Reading Location: [facility] Chest X-Ray 07/15/24 07:34 IMPRESSION: Near complete resolution of right pneumothorax with 2 small caliber chest tubes in place. Reading Location: [facility] Physical Exam Narrative Const alert, oriented x3 and no apparent distress Constitutional Narrative: Thin, anxious appearing, middle-aged, white female, sitting up in bed, is at the bedside, watching television, nontoxic but appears mildly uncomfortable, anxious and affect is flat HEENT head/scalp atraumatic Head and Scalp: normocephalic Psych Psych Narrative: Affect is flat, patient remains anxious and almost tearful at times Assessment & Plan Assessment/Plan (1) Iatrogenic pneumothorax: PLAN: Plan Right sided pneumothorax -Worsened pneumo on chest x-ray from yesterday afternoon -Large bore chest tube was required and placed this morning by general surgery -Currently has air leak -Hopeful that Wilbert will resolve in the next 24 to 48 hours and will be able to pull chest tube and discharge home -Continue to monitor clinically Anxiety -Continue as needed Ativan History of migraines -Continue zonisamide DVT prophylaxis -Continue SCDs CODE STATUS -Full code Charges/Coding Visit Charges Inpatient E&M: 60791 Subs Hosp L1
[2024-07-15 08:47] VITALS: BP 118/72; PULSE 64; RESP 16; TEMP 36.6; O2SAT 100
--- NOTE | 2024-07-15 08:47 | PRE.ANES_ITS ---
ASA Classification* ASA Classification ASA Classification: 3 and E Assessment & Plan Anesthesia* Anesthesia Assessment Anesthesia Assessment: Discussed sedation and/or anesthesia options, risks, benefits, and alternatives with patient/parents/legal guardian/POA. Questions invited. The patient/parents/legal guardian/POA seems to understand and agrees to proceed with anesthesia plan. Reviewed the physical assessment, medical history, allergy history and patient home medications list prior to surgery/procedure/anesthetic and documented any changes. Performed airway and anesthesia risk assessments. Anesthesia Type Anesthesia Type: MAC Anesthesia Focused Assessment* Temperature: 97.8 F Pulse Rate: 64 Blood Pressure: 118/72 Respiratory Rate: 16 Pulse Ox: 100 Oxygen Flow Rate (L/min): 2 Airway Assessment Mouth opens: >3 cm Mallampati Score: II Focused Labs Anesthesia Preop lab: CBC WBC 5.3 K/mm3 (4.4-11.0) 07/13/24 06:13 07/13/24 RBC 4.18 M/mm3 (4.2-5.4) L 07/13/24 06:13 07/13/24 Hgb 12.8 g/dL (12.0-15.0) 07/13/24 06:13 07/13/24 Hct 38.5 % (37-47) 07/13/24 06:13 07/13/24 Plt Count 175 K/mm3 (150-450) 07/13/24 06:13 07/13/24 CHEMISTRY Potassium 4.4 mmol/L (3.3-5.1) 07/13/24 06:13 07/13/24 Sodium 138 mmol/L (133-145) 07/13/24 06:13 07/13/24 BUN 19 mg/dL (4-19) 07/13/24 06:13 07/13/24 Creatinine 0.78 mg/dL (0.70-1.20) 07/13/24 06:13 07/13/24 Glucose 101 mg/dL (70-99) H 07/13/24 06:13 07/13/24 TSH 0.463 uIU/mL (0.358-3.740) 04/06/24 13:02 03/19 COAG PT 13.5 SECONDS (11.7-14.9) 12/19/14 06:15 Urine Test Negative Negative 12/19/14 05:50 12/19/14 Pre-Assessment Diagnosis/Proposed Procedure Planned Operative Procedure(s): sedation for chest tube insertion Anesthesia History Anesthesia History - targeting acquisition officer: Anesthesia History - targeting acquisition officer Hx Hospitalization No 04/20/21 08:44 Any Problems With Anesthesia No 04/20/21 08:44 Cholinesterase deficiency No 04/20/21 08:44 You/Your Family Experience No 04/20/21 08:44 fever (hyperthermia) with Relationship Recent Exposure to Contagious No 04/20/21 08:44 Disease Does patient have nerve No 04/20/21 08:44 stimulator Patient instructed to have device shut off --Does patient have Pacemaker or ICD? When Was Last Pacemaker Check QUESTION #4 FULL TEXT: You/Your Family Experience fever (hyperthermia) with Anesthesia Last Oral Intake Last Oral intake: Last Oral Intake NPO since Meds taken in AM with sips of water? Meds patient instructed to take am of surgery PONV PONV - targeting acquisition officer: PONV - targeting acquisition officer Female HX of Motion Sickness HX of N/V After Surgery Non-Smoker Duration of Surgery greater than 60 minutes Number of Risk Factors PONV Score Height & Weight Height & Weight: Anesthesia: Height & Weight Height 5 ft 2 in 07/12/24 17:07 Weight: 47.627 kg 07/12/24 17:07 Body Mass Index (BMI) 19.2 07/12/24 17:07 Respiratory Assessment Respiratory Assessment - targeting acquisition officer: Respiratory Tract Infection Hx - targeting acquisition officer Hx Respiratory Tract Infection No 04/20/21 08:44 STOP Sleep Apnea STOP Sleep Apnea - targeting acquisition officer: STOP Sleep Apnea - targeting acquisition officer Hx Hypertension No 07/12/24 17:07 Hx Sleep Apnea No 07/12/24 17:07 CPAP No 04/20/21 08:44 BIPAP No 04/20/21 08:44 Do you snore loudly (louder No 07/12/24 17:07 than talking or can be heard Do you often feel tired/ No 07/12/24 17:07 fatigued/ sleepy during daytime? Has anyone observed you stop No 07/12/24 17:07 breathing during sleep? STOP Results Negative 07/12/24 17:07 QUESTION #5 FULL TEXT : Do you snore loudly (louder than talking or can be heard through closed doors)? 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 Specify any problems Hx of Preganancy in last 3 N/A 07/12/24 17:07 Months Nurse Filling Out Transfusion [id number] 07/12/24 17:07 & Questions: Date: 07/12/24 07/12/24 17:07 Time: 17:19 07/12/24 17:07 Patient unable to answer at this time (ie. confused, unrespo /Reproduction History /Reproductive History - targeting acquisition officer: /Reproductive Hx- targeting acquisition officer Hx Now No 07/12/24 17:07 Gestational Age (in weeks): EDC: Hx Hx Para Hx Section SAB No 07/12/24 17:07 Active Medications Active Medications: Current Medications Generic Name Dose Route Start Last Admin Trade Name Freq PRN Reason Stop Dose Admin Acetaminophen 1,000 mg 07/12/24 22:00 07/15/24 05:18 Acetaminophen 500 Mg Tablet PO 1,000 mg Q8 GUZMAN Administration Estradiol 1 each 07/14/24 10:00 07/14/24 11:39 Estradiol 0.0375 Mg Patch TD Not Given [id number]@1000 GUZMAN Lorazepam 0.5 mg 07/12/24 17:07 07/14/24 20:50 Lorazepam 0.5 Mg Tablet PO 0.5 mg Q6H PRN PRN Administration severe anxiety Lorazepam 0.5 mg 07/12/24 19:40 07/14/24 22:55 Lorazepam 2 Mg/Ml Wch Syringe IV 0.5 mg Q6H PRN PRN Administration severe anxiety Melatonin 10 mg 07/12/24 17:07 Melatonin 10 Mg Tablet PO QHS PRN PRN INSOMNIA Morphine Sulfate 2 - 4 mg 07/12/24 17:07 07/15/24 00:27 Morphine 2 Mg/Ml Syringe IV 2 mg Q3H PRN PRN Administration Pain Score 6-10 Ondansetron HCl 4 mg 07/12/24 17:07 07/12/24 18:52 Ondansetron 4 Mg/2 Ml Vial IV 4 mg Q8H PRN PRN Administration NAUSEA/VOMITING Oxycodone HCl 5 mg 07/12/24 17:07 Oxycodone 5 Mg Tablet PO Q4H PRN PRN Pain Score 4-10 Prochlorperazine Edisylate 5 mg 07/12/24 19:40 07/15/24 00:27 Prochlorperazine 10 Mg/2 Ml Vial IV 5 mg Q4H PRN PRN Administration Breakthrough Nausea/Vomiting Senna/Docusate Sodium 2 tablet 07/12/24 17:07 Senna/Docusate Sodium 1 Tablet PO BID PRN PRN Constipation Sodium Chloride 10 - 40 ml 07/12/24 17:20 07/13/24 20:28 0.9% Saline Lock 10 Ml Syringe IV 10 ml UD PRN Administration SALINE FLUSH Zonisamide 100 mg 07/12/24 22:00 07/15/24 05:18 Zonisamide 100 Mg Capsule PO 100 mg TID GUZMAN Administration PFSH Medical History Neck complaint Globus sensation Attention deficit Neck pain on right side Vitamin D insufficiency Bradycardia Viral syndrome Anxiety with flying Colon cancer screening Preventative health care Back pain Cystitis Scoliosis Herpes simplex Migraines Seasonal allergies Home Medications ?Medication ?Instructions ?Recorded ?Last Taken ?Type acetaminophen 325 mg capsule 325 mg PO Q6H PRN pain Unknown History (Tylenol) acyclovir 400 mg tablet 400 mg PO TID PRN Herpes Sim plex 12/21/22 Unknown Rx #90 tabs zonisamide 100 mg capsule 100 mg PO TID 3 months #270 caps 06/11/24 07/11/24 Rx (Zonegran) diazepam 5 mg tablet (Valium) 5 mg PO TID PRN muscle s pasm 5 07/11/24 Unknown Rx days #15 tabs estradiol 0.0375 mg/24 hr 1 patch topical WESA 5 07/11/24 History semiweekly transdermal patch Allergy/AdvReac Type Severity Reaction Status Date / Time NSAIDS (Non-Steroidal AdvReac Severe Due to her Verified 07/12/24 10:34 Anti-Inflamma Interstitial Cystitis amitriptyline AdvReac Vomiting Verified 07/12/24 10:34 codeine AdvReac Nausea Verified 07/12/24 10:34 erythromycin base AdvReac Vomiting Verified 07/12/24 10:34 (Erythromycin Base) hydrocodone bitartrate (From AdvReac Nausea Verified 07/12/24 10:34 Vicodin) pregabalin (From Lyrica) AdvReac Other Verified 07/12/24 10:34 tramadol AdvReac Nausea/Vom/ Verified 07/12/24 10:34 Diarrhea Family History Mother Breast cancer CVA (cerebral vascular accident) Grandmother Diabetes Father Hypertension Arthritis Surgical History History of laparoscopic appendectomy History of colonoscopy History of delivery History of tonsillectomy History of salpingo-oophorectomy History of hysterectomy Social History household members: spouse housing: house Smoking Status: Never smoker alcohol intake: current alcohol intake frequency: holidays/special occasions only substance use type: does not use what type of physical activity do you participate in: aerobics frequency: 1-2 times per week Review of Systems (Anesthesia) ROS Narrative System reviewed and no additional complaints, except as documented.
--- NOTE | 2024-07-15 08:47 | PN.SURG_ITS ---
Subjective Subjective Patient is not having any shortness of breath or chest pain Objective Data Objective Data Vital Signs: Vital Signs Temp Pulse Resp BP Pulse Ox O2 Del Method O2 Flow Rate 97.8 F 64 16 118/72 100 Room Air 2 07/14/24 23:19 07/14/24 23:19 07/14/24 23:19 07/14/24 23:19 07/14/24 23:19 07/14/24 23:19 07/12/24 13:00 Oxygen Flow Rate (L/min) [8] 2 Oxygen Flow Rate (L/min) [7] 2 Oxygen Flow Rate (L/min) [6] 2 Oxygen Flow Rate (L/min) [5] 2 Oxygen Flow Rate (L/min) [4] 2 Oxygen Flow Rate (L/min) [3] 2 Oxygen Flow Rate (L/min) [2] 2 Oxygen Flow Rate (L/min) [1 ( 2 Initial Baseline)] Oxygen Flow Rate (L/min) 2 Oxygen Delivery Method [8] Nasal Cannula Oxygen Delivery Method [7] Nasal Cannula Oxygen Delivery Method [6] Nasal Cannula Oxygen Delivery Method [5] Nasal Cannula Oxygen Delivery Method [4] Nasal Cannula Oxygen Delivery Method [3] Nasal Cannula Oxygen Delivery Method Room Air Weight: 105 lb Body Mass Index (BMI) 19.2 Intake & Output: Intake and Output for Last 24 Hours 07/13/24 07/14/24 07/15/24 23:59 23:59 23:59 Intake Total 480 / 480 700 / 700 Output Total 0 / 0 Balance 480 / 480 700 / 700 Lab / Micro Data 07/13/24 06:13 07/13/24 06:13 Radiography Diagnostic Testing: Radiology Impression Chest X-Ray 07/14/24 15:00 IMPRESSION: Residual small right apical pneumothorax with right chest tube in satisfactory position . Reading [facility] Chest X-Ray 07/14/24 16:15 IMPRESSION: Stable right pneumothorax with chest tube in place. Reading Location: [id number] Chest X-Ray 07/14/24 22:36 IMPRESSION: Slightly improved right pneumothorax with a right-sided chest tube in place. Reading Location: [facility] Chest X-Ray 07/14/24 23:10 IMPRESSION: 1. Resolution of the right-sided pneumothorax status post placement of a 2nd right-sided small caliber chest tube. Reading Location: [facility] Chest X-Ray 07/15/24 07:34 IMPRESSION: Near complete resolution of right pneumothorax with 2 small caliber chest tubes in place. Reading Location: [facility] Physical Exam Const oriented x3 and no apparent distress Resp normal respiratory effort Cardio regular rate and regular rhythm Assessment & Plan Assessment/Plan (1) Iatrogenic pneumothorax: PLAN: The patient has persistent pneumothorax on this morning's chest x-ray. I placed a second percutaneous tube yesterday and there was resolution of pneumothorax but today the pneumothorax is back and there is no air leak. I would like to place a 28 Irish chest tube all the way to the apex. The patient is incredibly anxious and I will have anesthesia come in for conscious sedation to place the chest tube. I discussed the risks of the procedure such as bleeding, infection, injury to intercostal nerves or blood vessels, injury to lung. Patient understands the risks and is well to proceed. Enrique Tracy MD Pager: [facility] [address] [place] [address], [address] [place] [address] Office:
--- NOTE | 2024-07-15 09:30 | RAD_ITS ---
PROCEDURE: CHEST 1 VIEW (PORTABLE) 07/15/2024 REASON FOR EXAM: CHEST TUBE PLACEMENT TECHNIQUE: Frontal view of the chest. FINDINGS: Hardware: Heart: A right chest tube is seen with the tip extending toward the apex of the right hemithorax. The tube could be retracted 4 cm. Lungs: Tiny residual right apical pneumothorax. Bones: Unremarkable. Other: RAD/Chest 1 View (Portable) IMPRESSION: Chest tube in place. Consider retracting the tube 4 cm. Very small residual r ight pneumothorax. Reading Location[facility]
--- NOTE | 2024-07-15 09:44 | RAD_ITS ---
PROCEDURE: CHEST 1 VIEW (PORTABLE) 07/15/2024 REASON FOR EXAM: CHEST TUBE PLACEMENT/READJUSTMENT TECHNIQUE: Frontal view of the chest. COMPARISON: Earlier this morning FINDINGS: Hardware: Right chest tube. The retracted 2 cm. Heart: Heart size is normal Lungs: Expanded. No significant residual right pneumothorax. Bones: Unremarkable Other: RAD/Chest 1 View (Portable) IMPRESSION: The right chest tube appears to have been retracted 4 cm. Another 2 cm retract ion might be helpful. Reading Location[facility]
--- NOTE | 2024-07-15 10:17 | PCM.OPRPT ---
Operative Report (Standard) Operative Information Date of Procedure: 07/15/24 Pre-Operative Diagnosis: Nonresolving right pneumothorax Post-Operative Diagnosis: Same Surgery/Procedure Performed: Right chest tube placement thermometer production worker: No Type of Anesthesia: Local MAC Procedure Start Time: 09:45 Procedure Stop Time: 09:50 Select all DRAINS/GRAFTS/IMPLANTS that apply: Drains Drain details: 28 Hungarian chest tube Estimated Blood Loss: 5 Specimen collected: No Description of surgery: The patient's dressings were taken down and a rolled chest tubes on the right were removed. Next conscious sedation was initiated by anesthesia. The right chest was prepped and draped. Area of skin was injected with local anesthetic. A small incision was made in the right chest. Hemostats were used to reach the rib and dissected over the rib and into the rib space and the pleura was entered and there was a wong of air. Next the chest tube was placed through the hole and directed superiorly. It was then sutured to the skin using 0 silk suture. It was placed to suction there was a large wong of air. Chest x-ray was obtained and it showed that it was advanced too far. The stitch was cut and it was backed out by about 2 inches and then resutured in place using 0 silk suture. There is an air leak that is slow and chest x-ray showed complete resolution of the pneumothorax. Surgical Findings: Improved pneumothorax after chest tube placement Complications Complications: No
[2024-07-15 12:10] VITALS: BP 111/63; PULSE 67; RESP 20; TEMP 36.5; O2SAT 100
[2024-07-15] MEDS: Ondansetron 4 MG/2 ML Vial IV (16:52)
[2024-07-15] MEDS: diazePAM 5 MG Tablet PO (17:12)
[2024-07-15 17:40] VITALS: BP 108/53; PULSE 55; RESP 12; TEMP 36.6; O2SAT 100
[2024-07-15] MEDS: 0.9% Saline Lock 10 ML Syringe IV (20:39)
[2024-07-15 21:00] VITALS: BP 115/73; PULSE 65; RESP 16; TEMP 36.6; O2SAT 97
[2024-07-16] MEDS: diazePAM 5 MG Tablet PO ×3 (01:50→21:00)
[2024-07-16 02:50] VITALS: BP 110/77; PULSE 63; RESP 16; TEMP 36.2; O2SAT 100
[2024-07-16] MEDS: Morphine 2 MG/ML Syringe IV ×2 (04:55→15:41)
[2024-07-16] MEDS: proCHLORPERazine 10 MG/2 ML Vial 5 MG IV ×2 (04:55→15:41)
[2024-07-16] MEDS: Acetaminophen 500 MG Tablet 1000 MG PO ×3 (04:55→20:59)
[2024-07-16] MEDS: 0.9% Saline Lock 10 ML Syringe IV (04:56)
[2024-07-16] MEDS: ZONISAMIDE 100 MG CAPSULE PO ×3 (04:56→20:59)
[2024-07-16 06:28] LABS: Hematocrit 37.7 % (37-47); Hemoglobin 12.5 g/dL (12.0-15.0); Mean Corp Hgb Conc 33.2 g/dL (32-36); Mean Corpuscular Hgb 30.6 pg (27.0-32.0); Mean Corpuscular Volume 92.4 fL (81-99); Mean Platelet Vol. 8.9 fl (6.2-12.0); Platelet Count 179 K/mm3 (150-450); RBC Distribution Width SD 40.7 fl (35.1-43.9); Red Blood Count 4.08 M/mm3 (4.2-5.4); White Blood Count 5.6 K/mm3 (4.4-11.0)
[2024-07-16 06:53] LABS: Anion Gap 10 (5-15); BUN 15 mg/dL (4-19); BUN/Creat Ratio 20.7 RATIO (10-20); Calcium,Total 9.2 mg/dL (7.6-11.0); Carbon Dioxide 19.5 mmol/L (21.0-32.0); Chloride 107 mmol/L (98-108); Creatinine, Serum 0.75 mg/dL (0.70-1.20); EST Glomerular Filtration Rate 100 (>60); Estimated Creatinine Clearance 69.72 ml/min (50-250); Glucose 87 mg/dL (70-99); Potassium 4.3 mmol/L (3.3-5.1); Sodium Level 137 mmol/L (133-145)
--- NOTE | 2024-07-16 06:58 | RAD_ITS ---
PROCEDURE: CHEST 1 VIEW (PORTABLE) 07/16/2024 REASON FOR EXAM: PTX TECHNIQUE: Frontal view of the chest. At 07:05 COMPARISON: 07/15/2024 FINDINGS: Large caliber right-sided chest tube in place. No pneumothorax identified. The lungs appear clear. The cardiac and mediastinal contours appear within limits. The visualized osseous structures appear within limits. RAD/Chest 1 View (Portable) IMPRESSION: Large caliber right-sided chest tube in place. No pneumothorax identified. The lungs appear clear. Reading Location: [id number]
--- NOTE | 2024-07-16 08:17 | PN.SURG_ITS ---
Subjective Subjective Patient evaluated resting comfortably in bed. CXR this morning obtained and reviewed. CXR demonstrate re-expansion of the right lung. She denies any shortness of breath or chest pain. She notes discomfort at the chest tube site. Objective Data Objective Data Vital Signs: Vital Signs Temp Pulse Resp BP Pulse Ox O2 Del Method O2 Flow Rate 97.1 F L 63 16 110/77 100 Room Air 2 07/16/24 02:50 07/16/24 02:50 07/16/24 02:50 07/16/24 02:50 07/16/24 02:50 07/16/24 02:50 07/15/24 08:47 Oxygen Flow Rate (L/min) [8] 2 Oxygen Flow Rate (L/min) [7] 2 Oxygen Flow Rate (L/min) [6] 2 Oxygen Flow Rate (L/min) [5] 2 Oxygen Flow Rate (L/min) [4] 2 Oxygen Flow Rate (L/min) [3] 2 Oxygen Flow Rate (L/min) [2] 2 Oxygen Flow Rate (L/min) [1 ( 2 Initial Baseline)] Oxygen Flow Rate (L/min) 2 Oxygen Delivery Method [8] Nasal Cannula Oxygen Delivery Method [7] Nasal Cannula Oxygen Delivery Method [6] Nasal Cannula Oxygen Delivery Method [5] Nasal Cannula Oxygen Delivery Method [4] Nasal Cannula Oxygen Delivery Method [3] Nasal Cannula Oxygen Delivery Method Room Air Weight: 105 lb Body Mass Index (BMI) 19.2 Intake & Output: Intake and Output for Last 24 Hours 07/14/24 07/15/24 07/16/24 23:59 23:59 23:59 Intake Total 700 / 700 250 / 250 Output Total 15 / 15 Balance 700 / 700 250 / 250 -15 / -15 Lab / Micro Data 07/16/24 06:16 07/16/24 06:16 Labs: Laboratory Results - last 24 hr 07/16/24 06:16: WBC 5.6, RBC 4.08 L, Hgb 12.5, Hct 37.7, MCV 92.4, MCH 30.6, MCHC 33.2, RDW Std Deviation 40.7, RDW Coeff of Toño 12.0, Plt Count 179, MPV 8.9, Sodium 137, Potassium 4.3, Chloride 107, Carbon Dioxide 19.5 L, Anion Gap 10, BUN 15, Creatinine 0.75, Estim Creat Clear Calc 69.72, Est GFR (MDRD) Non-Af 100, BUN/Creatinine Ratio 20.7 H, Glucose 87, Calcium 9.2 Radiography Diagnostic Testing: Radiology Impression Chest X-Ray 07/15/24 07:34 IMPRESSION: Near complete resolution of right pneumothorax with 2 small caliber chest tubes in place. Reading [facility] Chest X-Ray 07/15/24 09:30 IMPRESSION: Chest tube in place. Consider retracting the tube 4 cm. Very small residual right pneumothorax. Reading [facility] Chest X-Ray 07/15/24 09:44 IMPRESSION: The right chest tube appears to have been retracted 4 cm. Another 2 cm retraction might be helpful. Reading Location: [facility] Chest X-Ray 07/16/24 06:58 IMPRESSION: Large caliber right-sided chest tube in place. No pneumothorax identified. The lungs appear clear. Reading Location: [id number] Physical Exam Resp normal respiratory effort, normal air movement and clear to auscultation bilaterally Resp Narrative: Right chest- large bore chest tube intact. Bubbling noted within the pneumo canister consistent with an air leak Assessment & Plan Assessment/Plan (1) Iatrogenic pneumothorax: PLAN: I am following this patient in conjunction with Dr. Engel. She will independently evaluate this patient. CXR this morning demonstrates negative for right pneumothorax Canister still reveals an air leak Continue on wall suction today Reassess tomorrow Patient and patient's significant other are aware that patient may have to be transferred to a facility with thoracic surgery for assessment and treatment of persistent air leak. We will continue to moniotr this patient Charges/Coding Visit Charges Inpatient E&M: 36875 Subs Hosp L2
[2024-07-16 08:50] VITALS: BP 107/66; PULSE 61; RESP 12; TEMP 36.4; O2SAT 100
--- NOTE | 2024-07-16 12:13 | PCM.PN.HOSP ---
Reason for Visit Reason for Visit: Diagnoses Postprocedural pneumothorax (07/12/24) Subjective Subjective Saw patient at bedside this morning. Patient was mildly anxious appearing but otherwise sitting up comfortably in bed, conversing normally and in no acute distress. She states that her pain at the chest tube site has been improved this morning. States her anxiety has been improved from previous days as well. No other new concerns today. Objective Data Objective Data Vital Signs: Vital Signs Temp Pulse Resp BP Pulse Ox O2 Del Method O2 Flow Rate 97.5 F L 61 12 107/66 100 Room Air 2 07/16/24 08:50 07/16/24 08:50 07/16/24 08:50 07/16/24 08:50 07/16/24 08:50 07/16/24 09:19 07/15/24 08:47 Oxygen Flow Rate (L/min) [8] 2 Oxygen Flow Rate (L/min) [7] 2 Oxygen Flow Rate (L/min) [6] 2 Oxygen Flow Rate (L/min) [5] 2 Oxygen Flow Rate (L/min) [4] 2 Oxygen Flow Rate (L/min) [3] 2 Oxygen Flow Rate (L/min) [2] 2 Oxygen Flow Rate (L/min) [1 ( 2 Initial Baseline)] Oxygen Flow Rate (L/min) 2 Oxygen Delivery Method [8] Nasal Cannula Oxygen Delivery Method [7] Nasal Cannula Oxygen Delivery Method [6] Nasal Cannula Oxygen Delivery Method [5] Nasal Cannula Oxygen Delivery Method [4] Nasal Cannula Oxygen Delivery Method [3] Nasal Cannula Oxygen Delivery Method Room Air Weight: 47.627 kg Body Mass Index (BMI) 19.2 Intake & Output: Intake and Output for Last 24 Hours 07/14/24 07/15/24 07/16/24 23:59 23:59 23:59 Intake Total 700 / 700 250 / 250 675 / 675 Output Total 15 / 15 Balance 700 / 700 250 / 250 660 / 660 Lab / Micro Data 07/16/24 06:16 07/16/24 06:16 Labs: Laboratory Results - last 24 hr 07/16/24 06:16: WBC 5.6, RBC 4.08 L, Hgb 12.5, Hct 37.7, MCV 92.4, MCH 30.6, MCHC 33.2, RDW Std Deviation 40.7, RDW Coeff of Toño 12.0, Plt Count 179, MPV 8.9, Sodium 137, Potassium 4.3, Chloride 107, Carbon Dioxide 19.5 L, Anion Gap 10, BUN 15, Creatinine 0.75, Estim Creat Clear Calc 69.72, Est GFR (MDRD) Non-Af 100, BUN/Creatinine Ratio 20.7 H, Glucose 87, Calcium 9.2 Radiography Diagnostic Testing: Radiology Impression Chest X-Ray 07/16/24 06:58 IMPRESSION: Large caliber right-sided chest tube in place. No pneumothorax identified. The lungs appear clear. Reading Location: [facility] Physical Exam Const alert, oriented x3 and no apparent distress Constitutional Narrative: Middle-age female, thin appearing, mildly anxious appearing, otherwise sitting back comfortably in bed, conversing normally, in no acute distress. General Appearance: cooperative and comfortable HEENT normocephalic, head/scalp atraumatic, hearing grossly normal bilaterally, nasal mucous membranes and turbinates normal and moist oral mucous membranes Eyes PERRL, EOMs intact bilaterally and conjunctivae normal Neck full ROM Chest Chest Narrative: Right-sided chest tube in place, site clean and dry. Bubbling noted within pneumo canister consistent with air leak. Resp normal respiratory effort, normal air movement, no use of accessory muscles and clear to auscultation bilaterally Cardio regular rate, regular rhythm, no murmurs and peripheral pulses 2+ throughout GI normal to inspection, nondistended, normoactive bowel sounds, soft to palpation, non-tender and non-distended Back/Spine normal ROM Extremity normal to inspection, full ROM and no pedal edema Skin no rashes or lesions noted Psych mental status grossly normal Mood & Affect: anxious Assessment & Plan Assessment/Plan (1) Iatrogenic pneumothorax: PLAN: Plan Patient is a 49-year-old female who presented to [facility] ED on 07/12/2024 with right-sided chest pain. 1. Right-sided iatrogenic pneumothorax ? General Surgery following. Had trapezius injections done by chiropractor on morning of admission. Chest x-ray on admit showed right-sided pneumothorax with approximately 30% volume reduction. Chest tube placed at that time. Had second chest tube placed on 07/14 for persistent pneumothorax without improvement, so had large bore chest tube placed on 07/15. Chest x-ray on 07/16 with resolution of pneumothorax but patient continues to have air leak. Surgery monitoring closely and patient may need transfer to tertiary facility if air leak does not improve. Continue pain control as needed. 2. Anxiety ? Patient with history of anxiety and anxiety has been worsened by her acute medical issues during this hospitalization. Continue diazepam and lorazepam as needed. 3. History of migraines ? Continue home zonisamide. DVT prophylaxis: SCDs CODE STATUS: Full code, verified Expected disposition: Home, TBD Total clinical time spent by myself addressing the patient's medical issues, reviewing all the data, and collaborating with patient's care team: 35 minutes. Charges/Coding Visit Charges Inpatient E&M: 06006 Subs Hosp L2
[2024-07-16 15:46] VITALS: BP 111/66; PULSE 70; RESP 18; TEMP 36.6; O2SAT 100
[2024-07-16 20:45] VITALS: BP 116/81; PULSE 69; RESP 16; TEMP 36; O2SAT 100
[2024-07-17] MEDS: proCHLORPERazine 10 MG/2 ML Vial 5 MG IV ×4 (00:25→21:16)
[2024-07-17] MEDS: Morphine 2 MG/ML Syringe IV ×4 (00:25→21:16)
[2024-07-17 03:00] VITALS: BP 114/62; PULSE 64; RESP 14; TEMP 36; O2SAT 99
[2024-07-17] MEDS: diazePAM 5 MG Tablet PO (04:49)
[2024-07-17] MEDS: Acetaminophen 500 MG Tablet 1000 MG PO ×3 (04:49→21:15)
[2024-07-17] MEDS: ZONISAMIDE 100 MG CAPSULE PO ×3 (04:50→21:17)
[2024-07-17] MEDS: 0.9% Saline Lock 10 ML Syringe IV ×4 (07:44→17:25)
[2024-07-17 07:57] VITALS: BP 114/77; PULSE 73; RESP 14; TEMP 36.6; O2SAT 99
--- NOTE | 2024-07-17 08:35 | RAD_ITS ---
EXAM: XR Chest, 1 View CLINICAL INDICATION: CHEST TUBE TECHNIQUE: Frontal view of the chest. COMPARISON: XR Chest dated 07/16/2024 FINDINGS: LUNGS AND PLEURAL SPACES: See below. HEART: Unremarkable. No cardiomegaly. MEDIASTINUM: Unremarkable. Normal mediastinal contour. BONES/JOINTS: Unremarkable. No acute fracture. TUBES, LINES AND DEVICES: Stable right-sided chest tube. No pneumothorax. RAD/Chest 1 View (Portable) IMPRESSION: Stable right-sided chest tube. No pneumothorax. Reading Location: [facility]
[2024-07-17] MEDS: Ondansetron 4 MG/2 ML Vial IV ×2 (09:18→17:25)
--- NOTE | 2024-07-17 09:34 | PN.SURG_ITS ---
Subjective Subjective The patient continues to have an intermittent air leak may be a little bit slower today. Chest x-ray shows chest tube in good position, no obvious pneumo Objective Data Objective Data Vital Signs: Vital Signs Temp Pulse Resp BP Pulse Ox O2 Del Method O2 Flow Rate 97.9 F 73 14 114/77 99 Room Air 2 07/17/24 07:57 07/17/24 07:57 07/17/24 07:57 07/17/24 07:57 07/17/24 07:57 07/17/24 07:57 07/15/24 08:47 Oxygen Flow Rate (L/min) [8] 2 Oxygen Flow Rate (L/min) [7] 2 Oxygen Flow Rate (L/min) [6] 2 Oxygen Flow Rate (L/min) [5] 2 Oxygen Flow Rate (L/min) [4] 2 Oxygen Flow Rate (L/min) [3] 2 Oxygen Flow Rate (L/min) [2] 2 Oxygen Flow Rate (L/min) [1 ( 2 Initial Baseline)] Oxygen Flow Rate (L/min) 2 Oxygen Delivery Method [8] Nasal Cannula Oxygen Delivery Method [7] Nasal Cannula Oxygen Delivery Method [6] Nasal Cannula Oxygen Delivery Method [5] Nasal Cannula Oxygen Delivery Method [4] Nasal Cannula Oxygen Delivery Method [3] Nasal Cannula Oxygen Delivery Method Room Air Weight: 104 lb 15.993 oz Body Mass Index (BMI) 19.2 Intake & Output: Intake and Output for Last 24 Hours 07/15/24 07/16/24 07/17/24 23:59 23:59 23:59 Intake Total 250 / 250 1125 / 1125 Output Total 35 / 35 20 / 20 Balance 250 / 250 1090 / 1090 -20 / -20 Lab / Micro Data 07/16/24 06:16 07/16/24 06:16 Physical Exam Const oriented x3 Resp normal respiratory effort Resp Narrative: Right chest tube in place to Pleur-evac at -20 occasional leak?changed to -30 Cardio regular rate Assessment & Plan Assessment/Plan (1) Iatrogenic pneumothorax: PLAN: Plan Will keep right chest tube to suction did change to -30 from -20 on Pleur-evac. May be slightly slower leak. Patient is aware that if the leak continues tomorrow we will plan to contact other facilities for possible transfer. Patient and her and over the questions time. Makeda Engel M.D. Pager: [phone] [facility] [address] [place] [address], [facility], [address] [place] [address] Office: [phone] Charges/Coding Visit Charges Inpatient E&M: 14372 Subs Hosp L2
--- NOTE | 2024-07-17 10:44 | PCM.PN.HOSP ---
Reason for Visit Reason for Visit: Diagnoses Postprocedural pneumothorax (07/12/24) Subjective Subjective Saw patient at bedside this morning, and 2 sons present. Patient appeared mildly sedated this morning likely due to pain/anxiety medications. She was answering questions with short appropriate responses and noted that her pain at the chest tube site was fairly well-controlled. had several questions for me regarding patient's clinical status and outlook that I answered as best as possible. No other acute concerns at this time. Objective Data Objective Data Vital Signs: Vital Signs Temp Pulse Resp BP Pulse Ox O2 Del Method O2 Flow Rate 97.9 F 73 14 114/77 99 Room Air 2 07/17/24 07:57 07/17/24 07:57 07/17/24 07:57 07/17/24 07:57 07/17/24 07:57 07/17/24 09:15 07/15/24 08:47 Oxygen Flow Rate (L/min) [8] 2 Oxygen Flow Rate (L/min) [7] 2 Oxygen Flow Rate (L/min) [6] 2 Oxygen Flow Rate (L/min) [5] 2 Oxygen Flow Rate (L/min) [4] 2 Oxygen Flow Rate (L/min) [3] 2 Oxygen Flow Rate (L/min) [2] 2 Oxygen Flow Rate (L/min) [1 ( 2 Initial Baseline)] Oxygen Flow Rate (L/min) 2 Oxygen Delivery Method [8] Nasal Cannula Oxygen Delivery Method [7] Nasal Cannula Oxygen Delivery Method [6] Nasal Cannula Oxygen Delivery Method [5] Nasal Cannula Oxygen Delivery Method [4] Nasal Cannula Oxygen Delivery Method [3] Nasal Cannula Oxygen Delivery Method Room Air Weight: 47.627 kg Body Mass Index (BMI) 19.2 Intake & Output: Intake and Output for Last 24 Hours 07/15/24 07/16/24 07/17/24 23:59 23:59 23:59 Intake Total 250 / 250 1125 / 1125 Output Total 20 Balance 250 / 250 1090 / 1090 -20 / -20 Lab / Micro Data 07/16/24 06:16 07/16/24 06:16 Radiography Diagnostic Testing: Radiology Impression Chest X-Ray 07/17/24 08:35 IMPRESSION: Stable right-sided chest tube. No pneumothorax. Reading Location: [facility] Physical Exam Const alert, oriented x3 and no apparent distress Constitutional Narrative: Middle-age female, thin appearing, mildly anxious appearing, otherwise sitting back comfortably in bed, conversing normally, in no acute distress. Stable. General Appearance: cooperative and comfortable HEENT normocephalic, head/scalp atraumatic, hearing grossly normal bilaterally, nasal mucous membranes and turbinates normal and moist oral mucous membranes Eyes PERRL, EOMs intact bilaterally and conjunctivae normal Neck full ROM Chest Chest Narrative: Right-sided chest tube in place, site clean and dry. Bubbling noted within pneumo canister consistent with air leak. Stable. Resp normal respiratory effort, normal air movement, no use of accessory muscles and clear to auscultation bilaterally Cardio regular rate, regular rhythm, no murmurs and peripheral pulses 2+ throughout GI normal to inspection, nondistended, normoactive bowel sounds, soft to palpation, non-tender and non-distended Back/Spine normal ROM Extremity normal to inspection, full ROM and no pedal edema Skin no rashes or lesions noted Psych mental status grossly normal Mood & Affect: anxious Assessment & Plan Assessment/Plan (1) Iatrogenic pneumothorax: PLAN: Plan Patient is a 49-year-old female who presented to [facility] ED on 07/12/2024 with right-sided chest pain. 1. Right-sided iatrogenic pneumothorax ? General Surgery following. Had trapezius injections done by chiropractor on morning of admission. Chest x-ray on admit showed right-sided pneumothorax with approximately 30% volume reduction. Chest tube placed at that time. Had second chest tube placed on 07/14 for persistent pneumothorax without improvement, so had large bore chest tube placed on 07/15. Chest x-ray on 07/16 with resolution of pneumothorax but patient continues to have air leak. Surgery monitoring closely and patient may need transfer to tertiary facility if air leak does not improve. Continue pain control as needed. 2. Anxiety ? Patient with history of anxiety and anxiety has been worsened by her acute medical issues during this hospitalization. Continue diazepam and lorazepam as needed. 3. History of migraines ? Continue home zonisamide. DVT prophylaxis: SCDs CODE STATUS: Full code, verified Expected disposition: TBD Total clinical time spent by myself addressing the patient's medical issues, reviewing all the data, and collaborating with patient's care team: 35 minutes. Charges/Coding Visit Charges Inpatient E&M: 82387 Subs Hosp L2
--- NOTE | 2024-07-17 11:21 | CASEMGMT ---
Insurance review for hospitals In-network with?[employer] insurance if transfer is recommended is as follows: [facility], [facility], [place], [facility], [facility], [facility], , [facility], [facility], [facility], and [facility]. Flaca Schaffer, Discharge Planning Asst.
[2024-07-17] MEDS: Senna/Docusate Sodium 1 Tablet PO ×2 (13:12→21:15)
[2024-07-17 16:28] VITALS: BP 113/75; PULSE 70; RESP 18; TEMP 36; TEMP 37; O2SAT 98
[2024-07-17 21:00] VITALS: BP 127/74; PULSE 83; RESP 20; TEMP 36.9; O2SAT 97
[2024-07-17] MEDS: MELATONIN 10 MG TABLET PO (21:16)
[2024-07-18] MEDS: diazePAM 5 MG Tablet PO (00:05)
[2024-07-18] MEDS: Morphine 2 MG/ML Syringe IV ×2 (03:03→06:48)
[2024-07-18] MEDS: Ondansetron 4 MG/2 ML Vial IV (03:03)
[2024-07-18] MEDS: 0.9% Saline Lock 10 ML Syringe IV ×3 (03:04→08:28)
--- NOTE | 2024-07-18 03:08 | RAD_ITS ---
PROCEDURE: CHEST 1 VIEW (PORTABLE) 07/18/2024 REASON FOR EXAM: CT, PAIN TECHNIQUE: Frontal view of the chest. At 03:14 COMPARISON: 07/17/2024 at 08:33 FINDINGS: Large caliber right-sided chest tube remains, not significantly changed in appearance. No pneumothorax or pleural effusion identified. The lungs appear clear. Pulmonary vascularity appears within limits. The cardiac and mediastinal contours appear within limits. The visualized osseous structures appear within limits. RAD/Chest 1 View (Portable) IMPRESSION: Large caliber right-sided chest tube remains, not significantly changed in appe arance. No pneumothorax or pleural effusion identified. The lungs appear clear. Reading Location: [id number]
--- NOTE | 2024-07-18 03:08 | PCM.HOSP.N ---
Hospitalist Note Patient with sudden onset severe chest pain around the chest tube following sitting down and coughing. She has a large bore chest tube in place. Requested that surgery be updated as they are managing the CT, will request xray and will dose with dilaudid x 1.
[2024-07-18 03:34] VITALS: BP 110/65; PULSE 61; RESP 14; TEMP 36.6; O2SAT 97
[2024-07-18] MEDS: Acetaminophen 500 MG Tablet 1000 MG PO ×3 (06:48→21:10)
[2024-07-18] MEDS: proCHLORPERazine 10 MG/2 ML Vial 5 MG IV (06:50)
[2024-07-18] MEDS: ZONISAMIDE 100 MG CAPSULE PO ×2 (06:53→21:11)
[2024-07-18 07:02] LABS: Hematocrit 38.1 % (37-47); Hemoglobin 12.7 g/dL (12.0-15.0); Mean Corp Hgb Conc 33.3 g/dL (32-36); Mean Corpuscular Hgb 30.7 pg (27.0-32.0); Mean Platelet Vol. 8.9 fl (6.2-12.0); Platelet Count 203 K/mm3 (150-450); RBC Distribution Width CV 12.1 % (11.6-14.6); RBC Distribution Width SD 40.9 fl (35.1-43.9); Red Blood Count 4.14 M/mm3 (4.2-5.4); White Blood Count 9.3 K/mm3 (4.4-11.0)
[2024-07-18 07:29] LABS: Anion Gap 10 (5-15); BUN 21 mg/dL (4-19); BUN/Creat Ratio 24.6 RATIO (10-20); Calcium,Total 8.9 mg/dL (7.6-11.0); Carbon Dioxide 20.9 mmol/L (21.0-32.0); Chloride 106 mmol/L (98-108); Creatinine, Serum 0.84 mg/dL (0.70-1.20); EST Glomerular Filtration Rate 86 (>60); Estimated Creatinine Clearance 62.25 ml/min (50-250); Glucose 105 mg/dL (70-99); Potassium 4.4 mmol/L (3.3-5.1); Sodium Level 137 mmol/L (133-145)
[2024-07-18 08:24] VITALS: BP 114/69; PULSE 67; RESP 15; TEMP 36; O2SAT 100
[2024-07-18] MEDS: HYDROmorphone 0.5 MG/0.5 ML SYRINGE IV (08:28)
--- NOTE | 2024-07-18 09:14 | PN.SURG_ITS ---
Subjective Subjective Patient increase pain at night at left upper chest as well was chest tube site patient had about 6 hours of no bubbling per did have some occasional bubbling after getting up to use the restroom and had small cough. Patient is unable to take oxy or Vicodin due to nausea and vomiting also cannot take Toradol due to interstitial cystitis, states the morphine is not helping that much. Objective Data Objective Data Vital Signs: Vital Signs Temp Pulse Resp BP Pulse Ox O2 Del Method O2 Flow Rate 96.8 F L 67 15 114/69 100 Room Air 2 07/18/24 08:24 07/18/24 08:24 07/18/24 08:24 07/18/24 08:24 07/18/24 08:24 07/18/24 08:24 07/15/24 08:47 Oxygen Flow Rate (L/min) [8] 2 Oxygen Flow Rate (L/min) [7] 2 Oxygen Flow Rate (L/min) [6] 2 Oxygen Flow Rate (L/min) [5] 2 Oxygen Flow Rate (L/min) [4] 2 Oxygen Flow Rate (L/min) [3] 2 Oxygen Flow Rate (L/min) [2] 2 Oxygen Flow Rate (L/min) [1 ( 2 Initial Baseline)] Oxygen Flow Rate (L/min) 2 Oxygen Delivery Method [8] Nasal Cannula Oxygen Delivery Method [7] Nasal Cannula Oxygen Delivery Method [6] Nasal Cannula Oxygen Delivery Method [5] Nasal Cannula Oxygen Delivery Method [4] Nasal Cannula Oxygen Delivery Method [3] Nasal Cannula Oxygen Delivery Method Room Air Weight: 104 lb 15.993 oz Body Mass Index (BMI) 19.2 Intake & Output: Intake and Output for Last 24 Hours 07/16/24 07/17/24 07/18/24 23:59 23:59 23:59 Intake Total 1125 / 1125 895 / 895 Output Total 35 / 35 35 / 35 0 / 0 Balance 1090 / 1090 860 / 860 0 / 0 Lab / Micro Data 07/18/24 06:29 07/18/24 06:29 Labs: Laboratory Results - last 24 hr 07/18/24 06:29: WBC 9.3, RBC 4.14 L, Hgb 12.7, Hct 38.1, MCV 92.0, MCH 30.7, MCHC 33.3, RDW Std Deviation 40.9, RDW Coeff of Toño 12.1, Plt Count 203, MPV 8.9, Sodium 137, Potassium 4.4, Chloride 106, Carbon Dioxide 20.9 L, Anion Gap 10, BUN 21 H, Creatinine 0.84, Estim Creat Clear Calc 62.25, Est GFR (MDRD) Non- Af 86, BUN/Creatinine Ratio 24.6 H, Glucose 105 H, Calcium 8.9 Radiography Diagnostic Testing: Radiology Impression Chest X-Ray 07/17/24 08:35 IMPRESSION: Stable right-sided chest tube. No pneumothorax. Reading Location: [facility] Chest X-Ray 07/18/24 03:08 IMPRESSION: Large caliber right-sided chest tube remains, not significantly changed in appearance. No pneumothorax or pleural effusion identified. The lungs appear clear. Reading Location: [id number] Physical Exam Const oriented x3 Resp normal respiratory effort Resp Narrative: Right chest tube in place to Pleur-evac at -30, occasional slow leak, chest tube backed out about a centimeter half also dressing were taped Cardio regular rate Assessment & Plan Assessment/Plan (1) Iatrogenic pneumothorax: PLAN: Plan Will keep right chest tube to suction -30 on Pleur-evac. Slow leak. Will check bed situations at hospitals with thoracic. Did discuss with patient that if this continues to improve they would likely be doing the same thing. Addendum summa said could possibly have a bed later today, [facility] Said 2 to 3 days. Cindy Cary did talk with the he agreed to wait and see how this goes tomorrow. Makeda Engel M.D. Pager: [phone] [facility] [address] [place] [address], [facility], [address] [place] [address] Office: [phone] Charges/Coding Visit Charges Inpatient E&M: 47348 Subs Hosp L3
[2024-07-18] MEDS: traMADol 50 MG Tablet PO (09:53)
[2024-07-18] MEDS: Senna/Docusate Sodium 1 Tablet PO ×2 (09:58→21:10)
--- NOTE | 2024-07-18 10:06 | NURSING ---
Had a jose francisco discussion outside of pt room w/ regarding pain management. I was asked why the pt would be having so much chest pain to which I replied that there has been lots of manipulation of the chest tube over several days and even switched out to a larger chest tube that is basically over double the size of the original tube... it is inside the body in a delicate position that normally protects vital organs and it is not common to have no discomfort with this sort of treatment. I reiterated that the pt will most likely be in pain no matter how much medication we give her, and that we are at a point of needing to withhold the pain medications at this point due to the fact that the pt is so lethargic she needs coached and prompted to respond to direction and commands. I discussed the possibility of over-medicating leading to possible respiratory and cardiac arrest/cpr. Pt's verbalizes understanding and is in agreement of need to decrease narcotic administration.
--- NOTE | 2024-07-18 11:42 | PCM.PN.HOSP ---
Reason for Visit Reason for Visit: Diagnoses Postprocedural pneumothorax (07/12/24) Subjective Subjective Saw patient at bedside this morning, and sons present. Patient was somnolent appearing this morning. Was able to open eyes to command and answer questions weakly but appeared very fatigued. Notably had been given a dose of IV Dilaudid shortly before my encounter with her. Surgical PA was also present during our encounter and we answered questions from as best as we were able. Objective Data Objective Data Vital Signs: Vital Signs Temp Pulse Resp BP Pulse Ox O2 Del Method O2 Flow Rate 96.8 F L 67 15 114/69 100 Room Air 2 07/18/24 08:24 07/18/24 08:24 07/18/24 08:24 07/18/24 08:24 07/18/24 08:24 07/18/24 08:24 07/15/24 08:47 Oxygen Flow Rate (L/min) [8] 2 Oxygen Flow Rate (L/min) [7] 2 Oxygen Flow Rate (L/min) [6] 2 Oxygen Flow Rate (L/min) [5] 2 Oxygen Flow Rate (L/min) [4] 2 Oxygen Flow Rate (L/min) [3] 2 Oxygen Flow Rate (L/min) [2] 2 Oxygen Flow Rate (L/min) [1 ( 2 Initial Baseline)] Oxygen Flow Rate (L/min) 2 Oxygen Delivery Method [8] Nasal Cannula Oxygen Delivery Method [7] Nasal Cannula Oxygen Delivery Method [6] Nasal Cannula Oxygen Delivery Method [5] Nasal Cannula Oxygen Delivery Method [4] Nasal Cannula Oxygen Delivery Method [3] Nasal Cannula Oxygen Delivery Method Room Air Weight: 47.627 kg Body Mass Index (BMI) 19.2 Intake & Output: Intake and Output for Last 24 Hours 07/16/24 07/17/24 07/18/24 23:59 23:59 23:59 Intake Total 1125 / 1125 895 / 895 Output Total 35 / 35 35 / 35 0 / 0 Balance 1090 / 1090 860 / 860 0 / 0 Lab / Micro Data 07/18/24 06:29 07/18/24 06:29 Labs: Laboratory Results - last 24 hr 07/18/24 06:29: WBC 9.3, RBC 4.14 L, Hgb 12.7, Hct 38.1, MCV 92.0, MCH 30.7, MCHC 33.3, RDW Std Deviation 40.9, RDW Coeff of Toño 12.1, Plt Count 203, MPV 8.9, Sodium 137, Potassium 4.4, Chloride 106, Carbon Dioxide 20.9 L, Anion Gap 10, BUN 21 H, Creatinine 0.84, Estim Creat Clear Calc 62.25, Est GFR (MDRD) Non-Af 86, BUN/Creatinine Ratio 24.6 H, Glucose 105 H, Calcium 8.9 Radiography Diagnostic Testing: Radiology Impression Chest X-Ray 07/18/24 03:08 IMPRESSION: Large caliber right-sided chest tube remains, not significantly changed in appearance. No pneumothorax or pleural effusion identified. The lungs appear clear. Reading Location: [facility] Physical Exam Const alert and no apparent distress Constitutional Narrative: Middle-age female, thin appearing, somnolent today, opening eyes to command and answering with short weak responses, otherwise sitting back comfortably in bed and in no acute distress. General Appearance: cooperative and comfortable HEENT normocephalic, head/scalp atraumatic, hearing grossly normal bilaterally, nasal mucous membranes and turbinates normal and moist oral mucous membranes Eyes PERRL, EOMs intact bilaterally and conjunctivae normal Neck full ROM Chest Chest Narrative: Right-sided chest tube in place, site clean and dry. Occasional bubbling noted within pneumo canister consistent with slow air leak. Resp normal respiratory effort, normal air movement, no use of accessory muscles and clear to auscultation bilaterally Cardio regular rate, regular rhythm, no murmurs and peripheral pulses 2+ throughout GI normal to inspection, nondistended, normoactive bowel sounds, soft to palpation, non-tender and non-distended Back/Spine normal ROM Extremity normal to inspection, full ROM and no pedal edema Skin no rashes or lesions noted Assessment & Plan Assessment/Plan (1) Iatrogenic pneumothorax: PLAN: Plan Patient is a 49-year-old female who presented to [facility] ED on 07/12/2024 with right-sided chest pain. 1. Right-sided iatrogenic pneumothorax ? General Surgery following. Had trapezius injections done by chiropractor on morning of admission. Chest x-ray on admit showed right-sided pneumothorax with approximately 30% volume reduction. Chest tube placed at that time. Had second chest tube placed on 07/14 for persistent pneumothorax without improvement, so had large bore chest tube placed on 07/15. Chest x-ray on 07/16 with resolution of pneumothorax but patient continues to have slow air leak. Surgery monitoring closely and patient may need transfer to tertiary facility if air leak does not improve. Pain medications as noted below. 2. Anxiety ? Patient with history of anxiety and anxiety has been worsened by her acute medical issues during this hospitalization. Initially on diazepam and lorazepam as needed but have concern for somnolence in part secondary to these medications. Will continue diazepam 5 mg 3 times daily as needed but lorazepam discontinued on 07/18. 3. Pain at chest tube site ? Pain has been controlled thus far with scheduled Tylenol, p.o. oxycodone as needed and IV morphine as needed. Patient stated the oxycodone upset her stomach and the IV morphine did not seem to be too helpful. She was given a few doses of IV Dilaudid with significant somnolence. There was concern that NSAIDs could worsen interstitial cystitis so this was discussed with urology who noted that a short course of NSAIDs would be fine. Will prescribe IV Toradol up to every 8 hours as needed for 3 days. Will continue scheduled Tylenol, p.o. oxycodone as needed and IV morphine as needed. 4. History of migraines ? Continue home zonisamide. DVT prophylaxis: SCDs CODE STATUS: Full code, verified Expected disposition: TBD Total clinical time spent by myself addressing the patient's medical issues, reviewing all the data, and collaborating with patient's care team: 35 minutes. Charges/Coding Visit Charges Inpatient E&M: 17983 Subs Hosp L2
[2024-07-18 14:00] VITALS: O2SAT 100
[2024-07-18 14:04] VITALS: BP 114/70; PULSE 72; RESP 16; TEMP 36; O2SAT 100
[2024-07-18 18:00] VITALS: BP 118/75; PULSE 71; RESP 16; TEMP 36.1; O2SAT 100
[2024-07-18] MEDS: MELATONIN 10 MG TABLET PO (21:33)
[2024-07-18 21:46] VITALS: BP 123/78; PULSE 83; RESP 22; TEMP 36.7; O2SAT 100
[2024-07-19] MEDS: diazePAM 5 MG Tablet PO ×2 (00:17→06:04)
[2024-07-19] MEDS: Acetaminophen 325 MG Tablet 650 MG PO ×5 (02:22→20:08)
--- NOTE | 2024-07-19 04:15 | RAD_ITS ---
PROCEDURE: CHEST 1 VIEW (PORTABLE) 07/19/2024 REASON FOR EXAM: MONITOR PNEUMOTHORAX TECHNIQUE: Frontal view of the chest. COMPARISON: 07/18/2024 at 03:14 FINDINGS: Large caliber right-sided chest tube remains in place. No pneumothorax or pleural effusion identified. The lungs appear clear. The cardiac and mediastinal contours appear within limits. RAD/Chest 1 View (Portable) IMPRESSION: Large caliber right-sided chest tube remains in place. No pneumothorax or pleur al effusion identified. The lungs appear clear. Reading Location: [id number]
[2024-07-19 06:00] VITALS: BP 124/87; PULSE 74; RESP 20; TEMP 36.7; O2SAT 99
[2024-07-19] MEDS: ZONISAMIDE 100 MG CAPSULE PO ×3 (06:52→21:25)
[2024-07-19] MEDS: Bisacodyl 5 MG Tablet 10 MG PO (08:48)
[2024-07-19] MEDS: Ibuprofen 400 MG Tablet PO ×4 (08:48→21:25)
[2024-07-19 09:00] VITALS: BP 132/86; PULSE 72; RESP 15; TEMP 36.6; O2SAT 100
--- NOTE | 2024-07-19 09:18 | PN.HOSP_ITS ---
Reason for Visit Reason for Visit: Diagnoses Postprocedural pneumothorax (07/12/24) Subjective Subjective Saw patient at bedside this morning, present. Patient was much more alert this morning and calm appearing. She noted that her pain and anxiety control were improved today. Noted that she is trying to alternate between ibuprofen and Tylenol now as the stronger pain medications made her very somnolent. Noted that surgery had seen her this morning and plan was to monitor today and if improved tomorrow, may discontinue suction and have patient up and moving around and see how she does. No other acute concerns this morning. Objective Data Objective Data Vital Signs: Vital Signs Temp Pulse Resp BP Pulse Ox O2 Del Method O2 Flow Rate 98.1 F 74 20 H 124/87 H 99 Room Air 2 07/19/24 06:00 07/19/24 06:00 07/19/24 06:00 07/19/24 06:00 07/19/24 06:00 07/19/24 08:34 07/15/24 08:47 Oxygen Flow Rate (L/min) [8] 2 Oxygen Flow Rate (L/min) [7] 2 Oxygen Flow Rate (L/min) [6] 2 Oxygen Flow Rate (L/min) [5] 2 Oxygen Flow Rate (L/min) [4] 2 Oxygen Flow Rate (L/min) [3] 2 Oxygen Flow Rate (L/min) [2] 2 Oxygen Flow Rate (L/min) [1 ( 2 Initial Baseline)] Oxygen Flow Rate (L/min) 2 Oxygen Delivery Method [8] Nasal Cannula Oxygen Delivery Method [7] Nasal Cannula Oxygen Delivery Method [6] Nasal Cannula Oxygen Delivery Method [5] Nasal Cannula Oxygen Delivery Method [4] Nasal Cannula Oxygen Delivery Method [3] Nasal Cannula Oxygen Delivery Method Room Air Weight: 47.627 kg Body Mass Index (BMI) 19.2 Intake & Output: Intake and Output for Last 24 Hours 07/17/24 07/18/24 07/19/24 23:59 23:59 23:59 Intake Total 895 / 895 Output Total 35 / 35 0 / 0 0 / 0 Balance 860 / 860 0 / 0 0 / 0 Lab / Micro Data 07/18/24 06:29 07/18/24 06:29 Radiography Diagnostic Testing: Radiology Impression Chest X-Ray 07/19/24 04:15 IMPRESSION: Large caliber right-sided chest tube remains in place. No pneumothorax or pleural effusion identified. The lungs appear clear. Reading Location: [facility] Physical Exam Const alert and no apparent distress Constitutional Narrative: Middle-age female, thin appearing, much more alert today and calm, sitting back comfortably in bed and answering questions appropriately, in no acute distress. General Appearance: cooperative and comfortable HEENT normocephalic, head/scalp atraumatic, hearing grossly normal bilaterally, nasal mucous membranes and turbinates normal and moist oral mucous membranes Eyes PERRL, EOMs intact bilaterally and conjunctivae normal Neck full ROM Chest Chest Narrative: Right-sided chest tube in place, site clean and dry. Occasional bubbling noted within pneumo canister consistent with slow air leak. Stable. Resp normal respiratory effort, normal air movement, no use of accessory muscles and clear to auscultation bilaterally Cardio regular rate, regular rhythm, no murmurs and peripheral pulses 2+ throughout GI normal to inspection, nondistended, normoactive bowel sounds, soft to palpation, non-tender and non-distended Back/Spine normal ROM Extremity normal to inspection, full ROM and no pedal edema Skin no rashes or lesions noted Psych affect normal Assessment & Plan Assessment/Plan (1) Iatrogenic pneumothorax: PLAN: Plan Patient is a 49-year-old female who presented to [facility] ED on 07/12/2024 with right-sided chest pain. 1. Right-sided iatrogenic pneumothorax ? General Surgery following. Had trapezius injections done by chiropractor on morning of admission. Chest x-ray on admit showed right-sided pneumothorax with approximately 30% volume reduction. Chest tube placed at that time. Had second chest tube placed on 07/14 for persistent pneumothorax without improvement, so had large bore chest tube placed on 07/15. Chest x-rays since 07/16 with resolution of pneumothorax but patient continues to have slow air leak. Surgery monitoring closely and patient may need transfer to tertiary facility if air leak does not improve. Pain medications as noted below. 2. Anxiety ? Patient with history of anxiety and anxiety has been worsened by her acute medical issues during this hospitalization. Initially on diazepam and lorazepam as needed but had concern for somnolence in part secondary to these medications. Will continue diazepam 5 mg 3 times daily as needed but lorazepam discontinued on 07/18. 3. Pain at chest tube site ?Pain control initially with scheduled Tylenol, p.o. oxycodone as needed and IV morphine as needed. However, patient stated oxycodone upset her stomach and IV morphine was not too helpful. She was given a few doses of IV Dilaudid with significant somnolence. There was concern that NSAIDs could worsen interstitial cystitis so this was discussed with urology who noted that a short course of NSAIDs would be fine. Treating with Tylenol and ibuprofen alternating as needed and patient has had good pain control with this. Continue to monitor. 4. History of migraines ? Continue home zonisamide. DVT prophylaxis: SCDs CODE STATUS: Full code, verified Expected disposition: TBD Total clinical time spent by myself addressing the patient's medical issues, reviewing all the data, and collaborating with patient's care team: 35 minutes. Charges/Coding Visit Charges Inpatient E&M: 34109 Subs Hosp L2
--- NOTE | 2024-07-19 09:49 | PCM.PN.SRG ---
Subjective Subjective Patient is doing better with just the Tylenol, patient also willing to take NSAIDs after discussing I talked with our urogynecologist and she does allow Objective Data Objective Data Vital Signs: Vital Signs Temp Pulse Resp BP Pulse Ox O2 Del Method O2 Flow Rate 98.1 F 74 20 H 124/87 H 99 Room Air 2 07/19/24 06:00 07/19/24 06:00 07/19/24 06:00 07/19/24 06:00 07/19/24 06:00 07/19/24 08:34 07/15/24 08:47 Oxygen Flow Rate (L/min) [8] 2 Oxygen Flow Rate (L/min) [7] 2 Oxygen Flow Rate (L/min) [6] 2 Oxygen Flow Rate (L/min) [5] 2 Oxygen Flow Rate (L/min) [4] 2 Oxygen Flow Rate (L/min) [3] 2 Oxygen Flow Rate (L/min) [2] 2 Oxygen Flow Rate (L/min) [1 ( 2 Initial Baseline)] Oxygen Flow Rate (L/min) 2 Oxygen Delivery Method [8] Nasal Cannula Oxygen Delivery Method [7] Nasal Cannula Oxygen Delivery Method [6] Nasal Cannula Oxygen Delivery Method [5] Nasal Cannula Oxygen Delivery Method [4] Nasal Cannula Oxygen Delivery Method [3] Nasal Cannula Oxygen Delivery Method Room Air Weight: 104 lb 15.993 oz Body Mass Index (BMI) 19.2 Intake & Output: Intake and Output for Last 24 Hours 07/17/24 07/18/24 07/19/24 23:59 23:59 23:59 Intake Total 895 / 895 Output Total 35 / 35 0 / 0 0 / 0 Balance 860 / 860 0 / 0 0 / 0 Lab / Micro Data 07/18/24 06:29 07/18/24 06:29 Radiography Diagnostic Testing: Radiology Impression Chest X-Ray 07/19/24 04:15 IMPRESSION: Large caliber right-sided chest tube remains in place. No pneumothorax or pleural effusion identified. The lungs appear clear. Reading Location: [facility] Physical Exam Const oriented x3 Resp normal respiratory effort Resp Narrative: Right chest tube in place to Pleur-evac at -30, occasional slow leak Cardio regular rate Assessment & Plan Assessment/Plan (1) Iatrogenic pneumothorax: PLAN: Plan Will keep right chest tube to suction -30 on Pleur-evac. Slow leak. Discussed with patient we will call about transfer beds tomorrow if continues to have a leak. Patient was agreeable with plan. One of my partners will be rounding tomorrow. Either Dr. Jolly or Dr. Lopez. Makeda Engel M.D. Pager: [phone] [facility] [address] [place] [address], [facility], [address] [place] [id number] Office: [phone] Charges/Coding Visit Charges Inpatient E&M: 52827 Subs Hosp L2
[2024-07-19] MEDS: Senna/Docusate Sodium 1 Tablet PO (10:54)
--- NOTE | 2024-07-19 12:10 | PCA ---
Demographic faxed to [facility] [phone]
[2024-07-19 15:00] VITALS: BP 105/78; PULSE 85; RESP 15; TEMP 36.6; O2SAT 97
[2024-07-19 21:15] VITALS: BP 117/72; PULSE 81; RESP 16; TEMP 36.6; O2SAT 100
[2024-07-20] MEDS: Acetaminophen 325 MG Tablet 650 MG PO ×6 (00:18→23:27)
[2024-07-20] MEDS: diazePAM 5 MG Tablet PO ×3 (00:18→23:07)
[2024-07-20] MEDS: Ibuprofen 400 MG Tablet PO ×4 (02:24→16:27)
[2024-07-20] MEDS: 0.9% Saline Lock 10 ML Syringe IV ×2 (02:24→21:27)
[2024-07-20 03:30] VITALS: BP 109/67; PULSE 84; RESP 16; TEMP 36.5; O2SAT 98
--- NOTE | 2024-07-20 05:30 | RAD_ITS ---
PROCEDURE: CHEST 1 VIEW (PORTABLE) 07/20/2024 REASON FOR EXAM: MONITOR PNEUMOTHORAX TECHNIQUE: Frontal view of the chest. COMPARISON: 07/19/2024 FINDINGS: Large caliber right-sided chest tube remains in place without pneumothorax or pleural effusion identified. The lungs appear clear. The cardiac and mediastinal contours appear within limits. RAD/Chest 1 View (Portable) IMPRESSION: Large caliber right-sided chest tube remains in place without pneumothorax or p leural effusion identified. The lungs appear clear. Reading Location: [id number]
[2024-07-20] MEDS: ZONISAMIDE 100 MG CAPSULE PO ×3 (05:44→21:16)
[2024-07-20 06:00] LABS: Hematocrit 35.6 % (37-47); Hemoglobin 11.9 g/dL (12.0-15.0); Mean Corp Hgb Conc 33.4 g/dL (32-36); Mean Corpuscular Hgb 30.4 pg (27.0-32.0); Mean Platelet Vol. 8.9 fl (6.2-12.0); Platelet Count 226 K/mm3 (150-450); RBC Distribution Width CV 12.2 % (11.6-14.6); RBC Distribution Width SD 40.5 fl (35.1-43.9); Red Blood Count 3.91 M/mm3 (4.2-5.4); White Blood Count 6.4 K/mm3 (4.4-11.0)
[2024-07-20 06:49] LABS: Anion Gap 10 (5-15); BUN 28 mg/dL (4-19); BUN/Creat Ratio 36.1 RATIO (10-20); Calcium,Total 8.7 mg/dL (7.6-11.0); Carbon Dioxide 18.3 mmol/L (21.0-32.0); Chloride 111 mmol/L (98-108); Creatinine, Serum 0.76 mg/dL (0.70-1.20); EST Glomerular Filtration Rate 97 (>60); Glucose 87 mg/dL (70-99); Potassium 4.3 mmol/L (3.3-5.1); Sodium Level 139 mmol/L (133-145)
[2024-07-20 09:30] VITALS: BP 123/85; PULSE 70; RESP 16; TEMP 36.7; O2SAT 100
[2024-07-20] MEDS: Pantoprazole Sodium 20 MG Tablet PO (09:32)
--- NOTE | 2024-07-20 12:18 | PN.HOSP_ITS ---
Reason for Visit Reason for Visit: Diagnoses Postprocedural pneumothorax (07/12/24) Subjective Subjective Saw patient at bedside this morning, present. Patient was tearful and stating she was anxious and tired of being in the hospital. She was wanting to be transferred as soon as possible. was also pushing hard to transfer patient as soon as possible. I noted to them that [facility] will have a bed for her pending discharges today or tomorrow. He asked if other hospitals could be called to initiate transfer there as well. Objective Data Objective Data Vital Signs: Vital Signs Temp Pulse Resp BP Pulse Ox O2 Del Method O2 Flow Rate 98.0 F 70 16 123/85 H 100 Room Air 2 07/20/24 09:30 07/20/24 09:30 07/20/24 09:30 07/20/24 09:30 07/20/24 09:30 07/20/24 09:30 07/15/24 08:47 Oxygen Flow Rate (L/min) [8] 2 Oxygen Flow Rate (L/min) [7] 2 Oxygen Flow Rate (L/min) [6] 2 Oxygen Flow Rate (L/min) [5] 2 Oxygen Flow Rate (L/min) [4] 2 Oxygen Flow Rate (L/min) [3] 2 Oxygen Flow Rate (L/min) [2] 2 Oxygen Flow Rate (L/min) [1 ( 2 Initial Baseline)] Oxygen Flow Rate (L/min) 2 Oxygen Delivery Method [8] Nasal Cannula Oxygen Delivery Method [7] Nasal Cannula Oxygen Delivery Method [6] Nasal Cannula Oxygen Delivery Method [5] Nasal Cannula Oxygen Delivery Method [4] Nasal Cannula Oxygen Delivery Method [3] Nasal Cannula Oxygen Delivery Method Room Air Weight: 47.627 kg Body Mass Index (BMI) 19.2 Intake & Output: Intake and Output for Last 24 Hours 07/18/24 07/19/24 07/20/24 23:59 23:59 23:59 Intake Total 1050 / 1050 Output Total 0 / 0 0 / 0 Balance 0 / 0 1050 / 1050 Lab / Micro Data 07/20/24 05:05 07/20/24 05:05 Labs: Laboratory Results - last 24 hr 07/20/24 05:05: WBC 6.4, RBC 3.91 L, Hgb 11.9 L, Hct 35.6 L, MCV 91.0, MCH 30.4, MCHC 33.4, RDW Std Deviation 40.5, RDW Coeff of Toño 12.2, Plt Count 226, MPV 8.9, Sodium 139, Potassium 4.3, Chloride 111 H, Carbon Dioxide 18.3 L, Anion Gap 10, BUN 28 H, Creatinine 0.76, Estim Creat Clear Calc 68.80, Est GFR (MDRD) Non-Af 97, BUN/Creatinine Ratio 36.1 H, Glucose 87, Calcium 8.7 Radiography Diagnostic Testing: Radiology Impression Chest X-Ray 07/20/24 05:30 IMPRESSION: Large caliber right-sided chest tube remains in place without pneumothorax or pleural effusion identified. The lungs appear clear. Reading Location: [facility] Physical Exam Const alert and oriented x3 Constitutional Narrative: Middle-age female, thin appearing, tearful and anxious today, otherwise sitting back comfortably in bed and answering questions appropriately. General Appearance: cooperative HEENT normocephalic, head/scalp atraumatic, hearing grossly normal bilaterally, nasal mucous membranes and turbinates normal and moist oral mucous membranes Eyes PERRL, EOMs intact bilaterally and conjunctivae normal Neck full ROM Chest Chest Narrative: Right-sided chest tube in place, site clean and dry. Occasional bubbling noted within pneumo canister consistent with slow air leak. Stable. Resp normal respiratory effort, normal air movement, no use of accessory muscles and clear to auscultation bilaterally Cardio regular rate, regular rhythm, no murmurs and peripheral pulses 2+ throughout GI normal to inspection, nondistended, normoactive bowel sounds, soft to palpation, non-tender and non-distended Back/Spine normal ROM Extremity normal to inspection, full ROM and no pedal edema Skin no rashes or lesions noted Psych affect normal Mood & Affect: anxious Assessment & Plan Assessment/Plan (1) Iatrogenic pneumothorax: PLAN: Plan Patient is a 49-year-old female who presented to [facility] ED on 07/12/2024 with right-sided chest pain. 1. Right-sided iatrogenic pneumothorax ? General Surgery following. Had trapezius injections done by chiropractor on morning of admission. Chest x-ray on admit showed right-sided pneumothorax with approximately 30% volume reduction. Chest tube placed at that time. Had second chest tube placed on 07/14 for persistent pneumothorax without improvement, so had large bore chest tube placed on 07/15. Chest x-rays since 07/16 with resolution of pneumothorax but patient continues to have slow air leak. Transfer initiated to [facility] on 07/19 and hopeful that patient will get a bed there either this evening or tomorrow morning. Pain medications as noted below. 2. Anxiety ? Patient with history of anxiety and anxiety has been worsened by her acute medical issues during this hospitalization. Initially on diazepam and lorazepam as needed but had concern for somnolence in part secondary to these medications. Will continue diazepam 5 mg 3 times daily as needed but lorazepam discontinued on 07/18. 3. Pain at chest tube site ?Pain control initially with scheduled Tylenol, p.o. oxycodone as needed and IV morphine as needed. However, patient stated oxycodone upset her stomach and IV morphine was not too helpful. She was given a few doses of IV Dilaudid with significant somnolence. There was concern that NSAIDs could worsen interstitial cystitis so this was discussed with urology who noted that a short course of NSAIDs would be fine. Treating with Tylenol and ibuprofen alternating as needed and patient has had good pain control with this. Continue to monitor. 4. History of migraines ? Continue home zonisamide. DVT prophylaxis: SCDs CODE STATUS: Full code, verified Expected disposition: Transfer to [facility] Total clinical time spent by myself addressing the patient's medical issues, reviewing all the data, and collaborating with patient's care team: 35 minutes. Charges/Coding Visit Charges Inpatient E&M: 65789 Subs Hosp L2
--- NOTE | 2024-07-20 13:51 | CASEMGMT ---
Per guest service representative with pts insurance (call ref# [id number]), pt has met both her yearly deductible and out of pocket cost and transport should be covered at 100% but that the phone call is not a guarantee of coverage. This was relayed to pt. Flaca Schaffer DC Planning Asst.
--- NOTE | 2024-07-20 14:54 | PN.SURG_ITS ---
Subjective Subjective Patient clinically stable overnight. No new issues or problems. Patient emotionally frustrated with the process of transfer and the fact that she has been hospitalized for several days with a pneumothorax that is not improving. She denies any shortness of breath. Chest x-ray this morning is without pneumothorax. Airleak persists. She states that she would like to explore possibilities of being transferred to [facility] as well as [facility] as well. Transfer team is aware of these request Objective Data Objective Data Vital Signs: Vital Signs Temp Pulse Resp BP Pulse Ox O2 Del Method O2 Flow Rate 98.0 F 70 16 123/85 H 100 Room Air 2 07/20/24 09:30 07/20/24 09:30 07/20/24 09:30 07/20/24 09:30 07/20/24 09:30 07/20/24 09:30 07/15/24 08:47 Oxygen Flow Rate (L/min) [8] 2 Oxygen Flow Rate (L/min) [7] 2 Oxygen Flow Rate (L/min) [6] 2 Oxygen Flow Rate (L/min) [5] 2 Oxygen Flow Rate (L/min) [4] 2 Oxygen Flow Rate (L/min) [3] 2 Oxygen Flow Rate (L/min) [2] 2 Oxygen Flow Rate (L/min) [1 ( 2 Initial Baseline)] Oxygen Flow Rate (L/min) 2 Oxygen Delivery Method [8] Nasal Cannula Oxygen Delivery Method [7] Nasal Cannula Oxygen Delivery Method [6] Nasal Cannula Oxygen Delivery Method [5] Nasal Cannula Oxygen Delivery Method [4] Nasal Cannula Oxygen Delivery Method [3] Nasal Cannula Oxygen Delivery Method Room Air Weight: 104 lb 15.993 oz Body Mass Index (BMI) 19.2 Intake & Output: Intake and Output for Last 24 Hours 07/18/24 07/19/24 07/20/24 23:59 23:59 23:59 Intake Total 1050 / 1050 360 / 360 Output Total 0 / 0 0 / 0 Balance 0 / 0 1050 / 1050 360 / 360 Lab / Micro Data 07/20/24 05:05 07/20/24 05:05 Labs: Laboratory Results - last 24 hr 07/20/24 05:05: WBC 6.4, RBC 3.91 L, Hgb 11.9 L, Hct 35.6 L, MCV 91.0, MCH 30.4, MCHC 33.4, RDW Std Deviation 40.5, RDW Coeff of Toño 12.2, Plt Count 226, MPV 8.9, Sodium 139, Potassium 4.3, Chloride 111 H, Carbon Dioxide 18.3 L, Anion Gap 10, BUN 28 H, Creatinine 0.76, Estim Creat Clear Calc 68.80, Est GFR (MDRD) Non-Af 97, BUN/Creatinine Ratio 36.1 H, Glucose 87, Calcium 8.7 Radiography Diagnostic Testing: Radiology Impression Chest X-Ray 07/20/24 05:30 IMPRESSION: Large caliber right-sided chest tube remains in place without pneumothorax or pleural effusion identified. The lungs appear clear. Reading Location: [id number] Physical Exam Narrative She is alert and oriented x 3. She is in no acute distress. Right-sided chest tube remains in place. She has a persistent airleak on suction. When taken off of suction she really is not able to take a deep enough breath and cough to verify airleak Assessment & Plan Assessment/Plan (1) Iatrogenic pneumothorax: PLAN: Plan The patient is a 49-year-old female with a right-sided iatrogenic pneumothorax. This has had a persistent air leak. She has had 2 recent small bore chest tubes placed and then finally a [address] chest tube in place currently to reexpand the lung. There remains a persistent airleak. Requested transfer to a tertiary center for thoracic surgery has been made. She is on the transfer list however we are waiting open available beds. I reassured her that we will continue to try to do everything possible to facilitate this transfer however this can be a frustrating and sometimes lengthy process as we need to wait for an open bed at one of the tertiary centers. Patient is understanding of this to some degree. Her is more understanding. She is obviously quite frustrated. Considerable amount of time was spent in discussions with patient and family. Will continue to follow along and advise accordingly Charges/Coding Visit Charges Inpatient E&M: 13188 Subs Hosp L2
[2024-07-20 21:16] VITALS: BP 110/70; PULSE 73; RESP 18; TEMP 36.5; O2SAT 100
[2024-07-20 23:29] VITALS: BP 117/77; PULSE 72; RESP 17; TEMP 36.7; O2SAT 100
--- NOTE | 2024-07-21 07:13 | DCINST_ITS ---
Discharge Instructions DC O2, CPAP, BIPAP needs Home O2 Discharge instructions: No Follow Up Care Test Results: Test results from this visit will be discussed in further detail at your follow- up appointment, if applicable. Discharge Plan Admission Admit Date/Time: 07/12/24 16:06 Primary Reason for Your Visit: Shortness of breath Attending Provider: Alejandro Ospina Primary Care Provider: Zoey Hurd Consulting Providers: Lisa Schwartz; Verna Sparks Discharge Orders/Prescriptions Prescriptions: Continued acetaminophen [Tylenol] 325 mg capsule 325 mg PO Q6H PRN (Reason: pain) diazepam [Valium] 5 mg tablet 5 mg PO TID PRN (Reason: muscle spasm) 5 Days Qty: 15 0RF estradiol 0.0375 mg/24 hr patch semiweekly 1 patch topical WESA acyclovir 400 mg tablet 400 mg PO TID PRN (Reason: Herpes Simplex) Qty: 90 0RF zonisamide [Zonegran] 100 mg capsule 100 mg PO TID 90 Days Qty: 270 1RF Referrals / Follow Up: Zoey Hurd MD [Primary Care Provider] - Disposition Disposition (needs filled in before D/C Order can be placed): [facility]
--- NOTE | 2024-07-21 07:14 | DS.PCM_ITS ---
Providers Date of Admission: 07/12/24 Date of Discharge: 07/20/24 Primary Care Physician: Dr. Zoey Hurd MD Reason For Visit: CHEST PAIN Diagnosis Discharge Diagnosis (1) Iatrogenic pneumothorax: Status: Acute Code(s): J95.811 - Postprocedural pneumothorax Medications at Discharge Home Medications acetaminophen 325 mg capsule (Tylenol) 325 mg PO Q6H PRN pain 10/18/22 acyclovir 400 mg tablet 400 mg PO TID PRN Herpes Simplex #90 tabs 12/21/22 zonisamide 100 mg capsule (Zonegran) 100 mg PO TID 3 months #270 caps 06/11/24 diazepam 5 mg tablet (Valium) 5 mg PO TID PRN muscle spasm 5 days #15 tabs 07/11/24 estradiol 0.0375 mg/24 hr semiweekly transdermal patch 1 patch topical [facility] 07/12/24 Hospital Course Operations None Procedures EKG and - (Chest tube placement x 3, chest x-ray x 15, CT chest) Summary of Care Provided Minutes Spent on Discharge: 35 Hospital Course: Patient is a 49-year-old female who presented to [facility] ED on 07/12/2024 with right-sided chest pain. Hospital course as noted below. Patient transferred to [facility] on 07/20. 1. Right-sided iatrogenic pneumothorax ? General Surgery followed. Had trapezius injections done by chiropractor on morning of admission. Chest x-ray on admit showed right-sided pneumothorax with approximately 30% volume reduction. Chest tube placed at that time. Had second chest tube placed on 07/14 for persistent pneumothorax without improvement, so had large bore chest tube placed on 07/15. Chest x-rays since 07/16 with resolution of pneumothorax but patient continued to have slow air leak. Treated with pain medications while inpatient as noted below. Transferred to [facility] on 07/20. 2. Anxiety ? Patient with history of anxiety and anxiety has been worsened by her acute medical issues during this hospitalization. Initially on diazepam and lorazepam as needed but had concern for somnolence in part secondary to these medications. Treated with diazepam 5 mg 3 times daily as needed but lorazepam discontinued on 07/18. 3. Pain at chest tube site ? Pain control initially with scheduled Tylenol, p.o. oxycodone as needed and IV morphine as needed. However, patient stated oxycodone upset her stomach and IV morphine was not too helpful. She was given a few doses of IV Dilaudid on 07/18 with significant somnolence. There was concern that NSAIDs could worsen interstitial cystitis so this was discussed with urology who noted that a short course of NSAIDs would be fine. Treated with Tylenol and ibuprofen alternating as needed from 07/18 on and patient had good pain control with this. 4. History of migraines ? Continue home zonisamide. Total clinical time spent by myself addressing the patient's medical issues, reviewing all the data, and collaborating with patient's care team: 35 minutes. Physical Exam Const alert and oriented x3 Constitutional Narrative: Middle-age female, thin appearing, tearful and anxious today, otherwise sitting back comfortably in bed and answering questions appropriately. General Appearance: cooperative HEENT normocephalic, head/scalp atraumatic, hearing grossly normal bilaterally, nasal mucous membranes and turbinates normal and moist oral mucous membranes Eyes PERRL, EOMs intact bilaterally and conjunctivae normal Neck full ROM Chest Chest Narrative: Right-sided chest tube in place, site clean and dry. Occasional bubbling noted within pneumo canister consistent with slow air leak. Stable. Resp normal respiratory effort, normal air movement, no use of accessory muscles and clear to auscultation bilaterally Cardio regular rate, regular rhythm, no murmurs and peripheral pulses 2+ throughout GI normal to inspection, nondistended, normoactive bowel sounds, soft to palpation, non-tender and non-distended Back/Spine normal ROM Extremity normal to inspection, full ROM and no pedal edema Skin no rashes or lesions noted Psych affect normal Mood & Affect: anxious Weight / BMI Weight Weight: 47.627 kg Body Mass Index (BMI) 19.2 ABG / Lab / Microbiology Data 07/20/24 05:05 07/20/24 05:05 D/C Instructions DC O2, CPAP, BIPAP Needs Home O2 Discharge instructions: No Meaningful Use Info Meaningful Use Meaningful Use Diagnoses (Choose all that apply): None applicable Ischemic Stroke Statin Dosing Therapy Reference: STATIN DOSE THERAPY REFERENCE: * Patients > 75 years receive moderate or high dose statin therapy. * Patients 75 years or YOUNGER should receive HIGH intensity statin dose unless contraindicated. You will be required to document reason for non-treatment if statin daily dose does not meet guidelines. HIGH DOSE STATIN THERAPY DAILY Atorvastatin > than or = to 40 mg Rosuvastatin > than or = to 20 mg Amlodipine + Atorvastatin > than or = to 2.5/40 mg Ezetimibe + Simvastatin 10/80 mg Simvastatin 80mg Discharge Plan Admission Admit Date/Time: 07/12/24 16:06 Primary Reason for Your Visit: Shortness of breath Attending Provider: Alejandro Ospina Primary Care Provider: Zoey Hurd Consulting Providers: Lisa Schwartz; Verna Sparks Discharge Orders/Prescriptions Prescriptions: Continued acetaminophen [Tylenol] 325 mg capsule 325 mg PO Q6H PRN (Reason: pain) diazepam [Valium] 5 mg tablet 5 mg PO TID PRN (Reason: muscle spasm) 5 Days Qty: 15 0RF estradiol 0.0375 mg/24 hr patch semiweekly 1 patch topical [facility] acyclovir 400 mg tablet 400 mg PO TID PRN (Reason: Herpes Simplex) Qty: 90 0RF zonisamide [Zonegran] 100 mg capsule 100 mg PO TID 90 Days Qty: 270 1RF Referrals / Follow Up: Zoey Hurd MD [Primary Care Provider] - Disposition Disposition (needs filled in before D/C Order can be placed): Acute Care Hospital Charges/Coding Visit Charges Inpatient E&M: 08559 Disch Hosp >30min
== END 2024-07-20 23:55 | disposition short-term general hospital (02) | DRG 201 ==
LOC: ED 15:33 → PCU 15:55
PROVIDERS: Internal Medicine; Admitting Provider Internal Medicine; Emergency Provider Emergency Medicine; PCP Internal Medicine; Visit Provider Hospitalist
DX: J95.811 Postprocedural pneumothorax (principal); B00.9 Herpesviral infection, unspecified; G43.909 Migraine, unspecified, not intractable, without status migrainosus; F41.9 Anxiety disorder, unspecified; M62.838 Other muscle spasm; N30.10 Interstitial cystitis (chronic) without hematuria; R07.9 Chest pain, unspecified; Z79.891 Long term (current) use of opiate analgesic; Z88.8 Allergy status to other drugs, medicaments and biological substances; Z88.5 Allergy status to narcotic agent; Z79.899 Other long term (current) drug therapy; Z86.16 Personal history of COVID-19; Z79.810 Long term (current) use of selective estrogen receptor modulators (SERMs); Z80.3 Family history of malignant neoplasm of breast; Z90.49 Acquired absence of other specified parts of digestive tract; Z90.710 Acquired absence of both cervix and uterus; Z75.1 Person awaiting admission to adequate facility elsewhere
CPT/HCPCS: 36415; 71045; 71046; 71260; 80048; 85025; 85027; 93005; 94668; 99152; 99153; 99284; Q9967; A4216; J2405